=== PATIENT | female | born 1975 | race Caucasian/White ===

== ENCOUNTER 2018-01-03 23:08 | Emergency (ER) | payer OTHER | END 2018-01-04 01:42 | disposition home or self-care (01) | LOC: D.ER 23:08 | DX: R22.42 Localized swelling, mass and lump, left lower limb (principal); N13.30 Unspecified hydronephrosis; N13.4 Hydroureter; K59.00 Constipation, unspecified; F17.200 Nicotine dependence, unspecified, uncomplicated ==

== ENCOUNTER 2018-01-07 10:18 | Day surgery (SDC) | payer OTHER ==
[2018-01-07] VITALS (7 sets, daily range): BP systolic 108–182; BP diastolic 72–99; Ht 160 cm; Wt 50.0 kg
[~2018-01-07] VITALS: Ht 160 cm; Wt 50.0 kg
--- NOTE | ~2018-01-07 | OP ---
PATIENT NAME: JOSE VALADEZ MEDICAL RECORD: [id number] :77 LOCATION:[facility] .1214 ADMISSION DATE:01/07/18 SURGEON: JOSE GEORGE MD DATE OF OPERATION: 01/07/2018 PREOPERATIVE DIAGNOSES: 1. Left leg lower extremity edema. 2. Hydronephrosis. 3. Undiagnosed vaginal bleeding. POSTOPERATIVE DIAGNOSES: Advanced cervical cancer with extension to uterus and pelvic lymph nodes. PROCEDURES: 1. Exam under anesthesia. 2. Cystoscopy with biopsy (please see urology dictation). 3. Cervical biopsy. 4. Endocervical curetting. 5. Curettage of uterus. CO-SURGEONS: 1. Jose George MD 2. Ashvin Mejia. ANESTHESIOLOGIST: Palmer Tariq MD ANESTHESIA: General. FINDINGS: The cervix is obliterated and flushed with the apex of the vagina. A large defect at the apex of the vagina gives easy access to the lower uterine segment. Bimanual exam reveals a mass filling up the bowl of the pelvis. Inguinal lymph nodes are palpable, stool present in the vault. SPECIMEN REMOVED: 1. Cervical biopsy. 2. Endocervical curettings. 3. Endometrial curettings. ESTIMATED BLOOD LOSS: Less than or equal to 200 cc. FLUIDS: 1100 cc lactated Ringer's. URINE OUTPUT: 330 cc of urine. COMPLICATION: None. DRAINS: Pollock to gravity. INDICATIONS: The patient is a 42-year-old female with what is reported as 6 months of undiagnosed vaginal bleeding. The patient has been seen with CT showing hydronephrosis. The patient has also been experiencing lower leg edema over the last few weeks. The patient declines pelvic examination in the office, but allows external examination. The patient consented for cystoscopy exam under anesthesia and any indicated procedure. OPERATIVE REPORT [id number] JOSE VALADEZ DESCRIPTION OF PROCEDURE: After notified by the OR staff, I presented to the operating room where the patient has been prepped and draped. The patient has speculum introduced in the vagina after bimanual exam is performed. The above findings were encountered. The Kevorkian curette used to obtain endocervical curettings. Using a #1 curette, curettage was now performed of the uterus. All tissue passed off the field for pathology. Using a LEEP wire, several segments of the what remains of cervix is removed and sent to pathology. A 0 Vicryl stitches were placed at the 3 o'clock and 9 o'clock position and using Bovie cautery, remaining bleeding was cauterized. Some oozing still occurs and Kerlix with Monsel's was placed inside the vaginal vault. Pollock catheter has been started. Sponge, lap, and needle count was correct at the close of this procedure. The patient is awake, and will go to the floor for interventional radiology to place nephrostomy in the morning. TRANSINT:[id number] Voice Confirmation ID: [id number] DOCUMENT ID: [id number] JOSE GEORGE MD at 1315 CC: [id number] DICTATION DATE: 01/07/18 1616 OIL PIT ATTENDANT: 01/07/18 1733 DIS IN 01/09/18 [facility] [address] [place] [address]
--- NOTE | ~2018-01-07 | HEMODYNAMI ---
PATIENT:JOSE VALADEZ MEDICAL RECORD: [id number] : 77 LOCATION:[facility] D.1214 ADMISSION DATE: 01/07/18 Generatedon:01/08/201815:28 Patient name: JOSE VALADEZ Patient #: [id number] SSN: : 1975 Date of study: 01/08/2018 Page: Of Hemodynamic Procedure Report Patient Data Patient Demographics Procedure consent was obtained First Name: JOSE Gender: Female Last Name: ALLYSON : 1975 Middle Initial: D Age: 42 year(s) Patient #: [id number] Race: Unknown Additional ID: [id number] Contact details [address]: [address] [place] [address] [address] [facility] State: [place] City: [place] Zip code: [address] Admission Admission Data Admission Date: 01/07/2018 Admission Time: 10:18 Room #: D.1214 Procedure Procedure Types Cath Procedure Peripheral Cath Diagnostic Procedure Miscellaneous Procedure Description Procedure Date Procedure Date: 01/08/2018 Procedure Start Time: 14:10 Procedure Staff Name Function Dano Balderas MD Performing Physician Edgar Birmingham RT Monitor Ingris Romero RT Scrub Andrea Teran RN Nurse Camilo Bates Nurse Procedure Data Cath Procedure Fluoroscopy Diagnostic fluoroscopy Total fluoroscopy Time: time: 12.9 min 12.9 min Diagnostic fluoroscopy Total fluoroscopy dose: 175 dose: 175 mGy mGy Contrast Material Contrast Material Type Amount (ml) Isovue 300 40 Procedure Medications Medication Administration Route Dosage Fentanyl I.V. 50 mcg Versed I.V. 1 mg Benadryl I.V. 50 mg unlisted medication I.V. g Versed I.V. 1 mg Fentanyl I.V. 50 mcg Versed I.V. 1 mg Fentanyl I.V. 50 mcg Versed I.V. 1 mg Fentanyl I.V. 50 mcg Versed I.V. 1 mg Fentanyl I.V. 50 mcg Versed I.V. 1 mg Fentanyl I.V. 50 mcg Lidocaine 1% 20 Heparin Flush Bag added to field 1 bags (1000units/500ml NS) Hemodynamics Rest Pre Cath Intra NCS Post Cath Vital Signs Time Heart Resp SPO2 etCO2 NIBP (mmHg) Rhythm Pain Status Sedation Rate (ipm) (%) (mmHg) Level (bpm) 13:59:41 94 12 100 34.8 129/88(101) NSR 0 (11) , No 10(A) pain 14:04:03 94 10 100 25 Disturbed NSR 0 (11) , No 10(A) pain 14:08:17 94 10 100 33.3 123/83(109) NSR 0 (11) , No 10(A) pain 14:12:19 93 12 100 37.1 114/81(99) NSR 0 (11) , No 8(A) pain 14:16:19 93 12 100 31.8 113/75(101) NSR 2 (11) , 8(A) Uncomfortable 14:20:16 94 12 100 33.3 119/78(101) NSR 0 (11) , No 8(A) pain 14:24:18 97 10 98 38.6 116/79(101) NSR 0 (11) , No 8(A) pain 14:28:24 93 10 99 39.3 114/75(94) NSR 0 (11) , No 8(A) pain 14:32:23 94 10 99 38.6 113/82(105) NSR 2 (11) , 8(A) Uncomfortable 14:36:21 94 10 99 40.1 122/80(108) NSR 2 (11) , 8(A) Uncomfortable 14:40:25 93 10 99 41.6 130/71(105) NSR 0 (11) , No 8(A) pain 14:44:31 94 12 98 40.8 125/88(104) NSR 1 (11) , Very 8(A) mild 14:49:30 97 10 99 38.6 Measuring NSR 2 (11) , 8(A) Uncomfortable 14:49:44 97 10 99 39.3 139/86(116) NSR 0 (11) , No 8(A) pain 14:53:50 96 10 99 37.1 127/84(98) NSR 0 (11) , No 8(A) pain 14:57:53 93 12 99 41.6 112/77(95) NSR 0 (11) , No 8(A) pain 15:01:49 93 12 99 38.6 120/85(102) NSR 0 (11) , No 8(A) pain 15:05:34 94 10 99 38.6 126/95(112) NSR 0 (11) , No 8(A) pain 15:09:38 94 10 99 37.1 125/84(117) NSR 2 (11) , 8(A) Uncomfortable 15:13:40 93 12 99 40.1 124/81(104) NSR 0 (11) , No 8(A) pain 15:18:39 93 12 100 26.5 Measuring NSR 0 (11) , No 8(A) pain 15:18:57 93 12 100 43.1 116/82(102) NSR 0 (11) , No 9(A) pain 15:23:56 100 41.6 Measuring NSR 0 (11) , No 9(A) pain 15:24:00 100 38.6 115/86(105) NSR 0 (11) , No 9(A) pain 15:28:00 100 31 119/86(102) NSR 0 (11) , No 9(A) pain Medications Time Medication Route Dose Verified Delivered Reason Notes Eff ectiveness by by 14:10:04 Lidocaine 1% 20ml vial 14:10:13 Heparin Flush added 1 Bag to bags (1000units/500ml field NS) 14:11:35 Fentanyl I.V. 50 Dano Page for Mos tly Jana Peres sedation sleeping @ 14:36:19 14:11:50 Versed I.V. 1 mg Dano Page for Mos leonardoy Jana Balderas sedation sleeping @ 14:36:11 14:12:24 Benadryl I.V. 50 mg Jana Norwood physician 14:14:43 cefepime I.V. g Jana Norwood protocol 14:20:22 Versed I.V. 1 mg Dano Page for Mos Jana Christianson sedation sleeping @ 14:35:54 14:20:37 Fentanyl I.V. 50 Dano Page for Mos tly mcg Burda, ChristineRN sedation sleeping @ MD 14:33:50 14:33:23 Versed I.V. 1 mg Dano Page for Mos tly Burda, ChristineRN sedation sleeping @ MD 14:34:02 14:33:37 Fentanyl I.V. 50 Dano Page for Mos tly mcg Burda, ChristineRN sedation sleeping @ MD 14:33:56 14:43:31 Versed I.V. 1 mg Dano Page for Mos tly Burda, ChristineRN sedation sleeping @ MD 14:44:03 14:43:44 Fentanyl I.V. 50 Dano Page for Mos tly mcg Burda, ChristineRN sedation sleeping @ MD 14:43:58 14:49:17 Versed I.V. 1 mg Dano Page for Burda, ChristineRN sedation 14:49:27 Fentanyl I.V. 50 Dano Page for mcg Burda, ChristineRN sedation 15:11:20 Versed I.V. 1 mg Dano Page for Mos tly Burda, ChristineRN sedation sleeping @ MD 15:13:17 15:11:35 Fentanyl I.V. 50 Dano Page for Mos tly mcg Burda, ChristineRN sedation sleeping @ MD 15:13:13 Procedure Log Time Note 13:42:32 Edgar Birmingham RT (R) (CV) sent for patient. Start room use. 13:47:01 Time tracking: Regular hours 13:47:07 Plan of Care:Hemodynamics will remain stable., Cardiac rhythm will remain stable., Comfort level will be maintained., Respiratory function will remain adequate., Patient/ family verbilizes understanding of procedure., Procedure tolerated without complication., Recovers from procedure without complications.. 13:47:20 Patient received from Other to IR Alert and oriented. Tansferred to table in Prone position. 13:47:21 Correct patient and procedure confirmed by team. 13:47:23 Signed procedure consent form obtained from patient. 13:47:24 ECG and BP/O2 sat monitors applied to patient. 13:47:25 Full Disclosure recording started 13:47:27 - 13:47:30 H&P Date Dictated: 01/08/2018 Within 30 days and on chart.. 13:47:30 Pre-procedure instructions explained to patient. 13:47:32 Pre-op teaching completed and patient verbalized understanding. 13:47:34 Family in waiting room. 13:47:38 Patient NPO since Midnight. 13:48:10 Is the patient allergic to Iodine/contrast media? No. 13:48:21 Is patient on blood thinner?No 13:48:24 Patient diabetic? No. 13:48:25 - 13:48:25 ----Pre-sedation anethsthesia assessment.---- 13:48:29 Previous problem with sedation/anesthesia? No ? 13:48:32 Snore? Yes 13:48:35 Sleep apnea? No 13:48:36 Deviated septum? No 13:48:38 Sticks out tongue? No 13:48:43 Dentures? No ? 13:48:48 Use device set IR Diagnostic 13:48:50 Sterile Angiographic Pack opened to sterile field. 13:48:51 Bag Decanter (2002S) opened to sterile field. 13:57:58 Patient pain scale 0/10 NO PAIN. 13:58:05 IV patent on arrival in left forearm with 0.9% NaCl at [facility]. 13:58:06 Alarms reviewed by R. N. 13:58:07 Sharps counted by scrub and verified by R.N. 13:58:11 Lumbar area was prepped with chlora-prep and draped in sterile fashion 13:58:23 Vital chart was started 14:09:38 Physician arrived 14:09:39 --------ALL STOP TIME OUT------ 14:09:40 Final Timeout: patient, procedure, and site verified with staff and physician. All members of the team are in agreement. 14:09:44 Lumbar site verified by team. 14:09:49 Sedation plan: IV Moderate Sedation Medication:Versed, Fentanyl 14:10:03 Procedure started. 14:10:04 Lidocaine 1% 20ml vial was administered by ; ; 14:10:09 Local anesthetic to Lumbar area with Lidocaine 1% by Dano Balderas MD.INITIAL ACCESS ONLY 14:10:13 Heparin Flush Bag (1000units/500ml NS) 1 bags added to field was administered by ; ; 14:10:37 STOPCOCK 3-Way Large Bore ([id number]) opened to sterile field. 14:10:38 KIT, INTRODUCER ACCUSTICK II W/C ([id number]) opened to sterile field. 14:10:38 BAG, DRAINAGE EMPTY 600ML W/ADDI (XMN470) opened to sterile field. 14:10:39 CHIBA 22 X 15 needle opened to sterile field. 14:11:35 Fentanyl 50 mcg I.V. was administered by Camilo Bates; for sedation; 14:11:50 Versed 1 mg I.V. was administered by Camilo Bates; for sedation; 14:12:24 Benadryl 50 mg I.V. was administered by Camilo Bates; Per physician; 14:12:59 patient c/o itching prior to any meds given dr. balderas updated will give benadryl 14:14:43 cefepime g I.V. was administered by Camilo Bates; Per protocol; 14:20:22 Versed 1 mg I.V. was administered by Camilo Bates; for sedation; 14:20:37 Fentanyl 50 mcg I.V. was administered by Camilo Bates; for sedation; 14:26:31 NITINOL .018 80cm wire ([id number]) opened to sterile field. 14:30:18 GLIDE CATHETER 5FR ANGLED 65cm (CG507) opened to sterile field. 14:30:24 NITINOL .018 80cm wire ([id number]) opened to sterile field. 14:33:23 Versed 1 mg I.V. was administered by Camilo Bates; for sedation; 14:33:37 Fentanyl 50 mcg I.V. was administered by Camilo Bates; for sedation; 14:33:50 Effectiveness of Fentanyl delivered @ 14:20:37 is: Mostly sleeping 14:33:56 Effectiveness of Fentanyl delivered @ 14:33:37 is: Mostly sleeping 14:34:02 Effectiveness of Versed delivered @ 14:33:23 is: Mostly sleeping 14:35:54 Effectiveness of Versed delivered @ 14:20:22 is: Mostly sleeping 14:36:11 Effectiveness of Versed delivered @ 14:11:50 is: Mostly sleeping 14:36:19 Effectiveness of Fentanyl delivered @ 14:11:35 is: Mostly sleeping 14:43:31 Versed 1 mg I.V. was administered by Camilo Bates; for sedation; 14:43:44 Fentanyl 50 mcg I.V. was administered by Camilo Bates; for sedation; 14:43:58 Effectiveness of Fentanyl delivered @ 14:43:44 is: Mostly sleeping 14:44:03 Effectiveness of Versed delivered @ 14:43:31 is: Mostly sleeping 14:46:09 GLIDE WIRE ANGLE 180cm (JZ9393) opened to sterile field. 14:49:17 Versed 1 mg I.V. was administered by Camilo Bates; for sedation; 14:49:27 Fentanyl 50 mcg I.V. was administered by Camilo Bates; for sedation; 14:50:04 GLIDE WIRE Angled Super Stiff 180cm (KB4992) opened to sterile field. 14:50:22 TORQUE DEVICE PLASTIC .038 ( TD01) opened to sterile field. 14:51:01 Abscession 8Fr drainage catheter ([id number]) opened to sterile field. 14:56:23 Trailblazer 0.035 90cm catheter (ASC-035-090) opened to sterile field. 14:56:23 GLIDE WIRE Super Stiff Angled 260cm (GE4180) opened to sterile field. 15:03:33 [place] Sci 8FR X 26 CM Ureteral Stent ([id number]) opened to sterile field. 15:07:05 AMPLATZ Super stiff 180cm wire ([id number]) opened to sterile field. 15:07:21 SUTURE ETHILON 2-0 BLK MONO FS opened to sterile field. 15:11:20 Versed 1 mg I.V. was administered by Camilo Bates; for sedation; 15:11:35 Fentanyl 50 mcg I.V. was administered by Camilo Bates; for sedation; 15:13:13 Effectiveness of Fentanyl delivered @ 15:11:35 is: Mostly sleeping 15:13:17 Effectiveness of Versed delivered @ 15:11:20 is: Mostly sleeping 15:16:24 Procedure ended.(Physican Out) 15:19:46 Fluoroscopy time 12.90 minutes. 15:19:50 Fluoroscopy dose: 175 mGy 15:19:50 Flurop Dose total: 175 15:19:56 Insertion/operative site no bleeding no hematoma. 15:20:04 Post-op/insertion site Right Lumbar area dressed using a 4 x 4 and Tegaderm. 15:20:12 Post Lumbar area:stable 15:26:40 Post procedure instruction explained to patient.Patient verbalizes understanding. 15:26:41 Procedure and supply charges have been captured, reviewed, submitted an d are correct. 15:26:47 Contrast amount:Isovue 300 40ml. 15:27:55 Report given to Other. 15:27:58 Patient transfered to Other with Bed. 15:28:22 Vital chart was stopped Device Usage Item Name Manufacture Quantity Catalog Hospital Part Current Min imal Lot# / Number Charge Number Stock Stock Serial# Code Sterile Cardinal [address] [id number] 5 Angiographic Health Pack Bag Decanter Microtek 1 [id number] 42819 399059 5 () Medical Inc. STOPCOCK [facility] 1 [id number] 675066 7599 895306 5 [id number] 3-Way Large Bore (P99102) KIT, [place] 1 [id number] 648205 453745 899245 5 [id number] INTRODUCER Scientific ACCUSTICK II W/C ([id number]) BAG, DRAINAGE [facility] 1 [id number] 171504 749772 742969 5 EMPTY 600ML W/ADDI (LXJ778) CHIBA 22 X 15 [employer] [employer] 1 I47514 277416 555495 5 [id number] needle NITINOL .018 Medtronic 2 [id number] 080375 550219 5 [id number] 80cm wire [id number] ([id number]) GLIDE Terumo 1 CG507 079018 525732 5 CATHETER 5FR ANGLED 65cm (CG507) GLIDE WIRE Terumo 1 BA0466 985287 742219 454065 5 ANGLE 180cm (RI3266) GLIDE WIRE Terumo 1 FN5583 334519 699784 5 Angled Super Stiff 180cm (PX9708) TORQUE DEVICE [place] 1 TD01 624112 387656 169458 5 PLASTIC .038 Scientific ( TD01) Abscession Angiodynamics 1 [id number] 950602 774956 760947 5 8Fr drainage catheter ([id number]) Trailblazer Medtronic 1 ASC-035-090 068357 3517437 896887 5 0.035 90cm catheter (ASC-035-090) GLIDE WIRE Terumo 1 TO7151 273486 156252 608535 5 Super Stiff Angled 260cm (TR0855) [place] Sci [place] 1 [id number] 324204 040801 812084 5 8FR X 26 CM Scientific Ureteral Stent ([id number]) AMPLATZ Super [place] 1 [id number] 154485 224942 5 [id number] stiff 180cm Scientific wire ([id number]) SUTURE Ethicon 1 664H 354802 825010 5 ETHILON 2-0 BLK MONO FS Signature Audit [place] Stage Time Signature Unsigned Intra-Procedure 01/08/2018 Edgar 3:28:19 PM Valencia RT (R) (CV) Signatures Monitor : Edgar Signature : Valencia RT Date : Time : [facility] [address] [place] [address]
--- NOTE | ~2018-01-07 | OP ---
PATIENT NAME: JOSE VALADEZ MEDICAL RECORD: [id number] :77 LOCATION:[facility] ADMISSION DATE: SURGEON: JONATHAN SEALS MD DATE OF OPERATION: 01/07/2018 SURGEON: Jonathan Seals MD ANESTHESIA: General anesthesia by Alvarez Baldwin CRNA PREOPERATIVE DIAGNOSES: Right hydronephrosis, vaginal bleeding, pelvic and aortocaval lymphadenopathy with left lymphedema of the leg. POSTOPERATIVE DIAGNOSES: Right hydronephrosis due to infiltrating cervical cancer, vaginal bleeding, pelvic and aortocaval lymphadenopathy with left lymphedema of the leg. PROCEDURES: Cystoscopy, attempted right retrograde pyelogram, bladder biopsy. FINDINGS: Large mass from cervix and uterus distorting the posterior bladder wall. Tumor infiltrating the posterior bladder wall and trigone of the bladder. 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 I cannot identify the location of left ureteral orifice. SPECIMENS: Bladder biopsy times 2. BLOOD LOSS: None. CLINICAL HISTORY: This is a 42-year-old female who is referred by the Emergency Room. She has been complaining of vaginal bleeding for over 6 months. She also developed left leg swelling in the past 7 days. She has gone to the Emergency Room previously regarding the vaginal bleeding and she was told that she had a urinary tract infection and she was given Cipro. She claims that her last Pap test was 2 years ago and it was normal. The Emergency Room did perform Doppler ultrasound of her leg and no DVT was seen. The patient would not allow me to perform a pelvic examination. I was quite suspicious that she may have cervical cancer and I called Dr. Alva to see her. He did see her yesterday and she also did not allow him to examine her. The differential diagnosis was lymphoma and we had Dr. Varela on-call in case she had a palpable inguinal lymph node which we could biopsy for the diagnosis of lymphoma. She did consent to allow Dr. Alva to examine the inguinal area as I had conveyed to him my concerns and he did note lymphadenopathy in the right groin. So, the plan was for me to perform cystoscopy, retrograde pyelogram, and right ureteral stent insertion and then Dr. Alva would come in to do a cervical biopsy and finally Dr. Varela would perform a right inguinal lymph node biopsy. This is all because we did not have any source of the primary cause of the right hydronephrosis. She is not allergic to any medications. She was given Ancef on-call to the OR. PROCEDURE: The patient was given induction of general anesthesia. She was placed in the dorsal lithotomy position and prepped and draped. A 21-Palauan cystoscope with 30-degree lens was used for visualization. On entering into the bladder, I immediately noted tumor infiltration into the trigone of the bladder. The ureteral orifices were severely distorted and the posterior bladder wall was extremely distorted as if something from below the bladder, i.e., cervix and uterus was pushing up on the bladder. I identified what I OPERATIVE REPORT [id number] JOSE VALADEZ thought was the right ureteral orifice. We placed an open-ended ureteral catheter, but injecting contrast showed that there was no progression of contrast in an antegrade manner. I did have Dr. Alva come into the operating room so I could show him on the monitor screen the tumor infiltration of the bladder wall. I then obtained cold cup biopsies of two of these tumor sites. We then proceeded to perform his examination under anesthesia. We immediately noted that she had very distorted cervix which has eaten away into the anterior vaginal wall and bladder area. The working diagnosis now being cervical cancer, Dr. Alva will proceed with his surgery. Dr. Varela was informed that there was no need to do an inguinal lymph node biopsy as we are not concerned about lymphoma at this point. In order to relieve the occlusion of the right kidney, I will have her admitted overnight. I have already discussed her situation with interventional radiology. They will place a right nephrostomy tube tomorrow. TRANSINT:[id number] Voice Confirmation ID: [id number] DOCUMENT ID: [id number] JONATHAN SEALS MD at 1808 CC: [id number] DICTATION DATE: 01/07/18 1603 DEALERSHIP GENERAL MANAGER: 01/07/18 1723 [facility] [address] [place] [address]
[2018-01-07 11:10] LABS: BASOPHILS 0.1 % (0-2); EOSINOPHILS 5.3 % (0-7); HEMATOCRIT 33.9 % (36.0-48.0); HEMOGLOBIN 10.5 g/dL (12-16); IMMATURE GRANULOCYTES 0.4 % (0-5); LYMPHOCYTES 8.7 % (15-50); MCH 25.2 pg (26.0-34.0); MCV 81.5 fL (80.0-100.0); MEAN PLATELET VOLUME 9.1 fL (7.4-10.4); MONOCYTES 9.4 % (2-11); NEUTROPHILS 76.1 % (40-80); PLATELET COUNT 410 10x3/uL (130-400); RBC 4.16 10x6/uL (4.00-5.40); RDW 15.8 % (11.5-14.5); WBC 14.1 10x3/uL (4.8-10.8)
[2018-01-07 11:21] LABS: ANION GAP 14.7 mmol/L (8-16); CALCIUM 8.7 mg/dL (8.5-10.1); CARBON DIOXIDE 24.8 mmol/L (21.0-32.0); CREATININE - SERUM 0.9 mg/dL (0.6-1.3); POTASSIUM - SERUM 3.5 mmol/L (3.5-5.1)
[2018-01-07 12:47] LABS: HCG URINE NEGATIVE (NEGATIVE)
[2018-01-07 20:43] LABS: INR 0.94 (0.85-1.17); PROTIME 12.2 SECONDS (11.6-15.0)
[2018-01-08] VITALS (8 sets, daily range): BP systolic 104–139; BP diastolic 58–80
[2018-01-09 00:05] VITALS: BP 102/58
[2018-01-09 04:19] VITALS: BP 98/62
[2018-01-09 04:22] VITALS: BP 106/62
[2018-01-09 06:49] VITALS: BP 121/53
[2018-01-09 07:30] VITALS: BP 109/67
[2018-01-09] MEDS ORDERED: NORCO 7.5/325 T1 TA1 PO (07:49)
== END 2018-01-09 08:40 | disposition home or self-care (01) ==
LOC: D.OPS 10:18 → D.WS 16:39 → D.OPS 18:32 → D.WS 18:32 → D.OPS 18:32 → D.WS 01-09 08:40 → D.OPS 01-09 08:40
PROVIDERS: Anesthesiology; Radiology Diagnostic Radiology; Urology
DX: C53.0 Malignant neoplasm of endocervix (principal); C79.82 Secondary malignant neoplasm of genital organs; C79.11 Secondary malignant neoplasm of bladder; N13.1 Hydronephrosis with ureteral stricture, not elsewhere classified; R59.0 Localized enlarged lymph nodes; Z01.812 Encounter for preprocedural laboratory examination

== ENCOUNTER 2018-01-19 08:06 | Outpatient (CLI) | payer OTHER ==
--- NOTE | ~2018-01-19 | HEMODYNAMI ---
PATIENT:JOSE VALADEZ MEDICAL RECORD: [id number] : 77 LOCATION:D.OPS ADMISSION DATE: 01/19/18 Generatedon:01/19/201811:40 Patient name: JOSE VALADEZ Patient #: [id number] SSN: : 1975 Date of study: 01/19/2018 Page: Of Hemodynamic Procedure Report Patient Data Patient Demographics Procedure consent was obtained First Name: JOSE Gender: Female Last Name: ALLYSON : 1975 Middle Initial: D Age: 43 year(s) Patient #: [id number] Race: Unknown Additional ID: [id number] Contact details Address: [address] [place] [address] [place] State: [place] City: [place] Zip code: [address] Admission Admission Data Admission Date: 01/19/2018 Admission Time: 8:06 Procedure Procedure Types Cath Procedure Peripheral Cath Diagnostic Procedure Nephro Nephrostogram Thru Existing Procedure Description Procedure Date Procedure Date: 01/19/2018 Procedure Start Time: 11:19 Procedure End Time: 11:35 Procedure Staff Name Function Edgar Birmingham RT Scrub Kavon Rios MD Performing Physician Ingris Romero RT Monitor Andrea Teran RN Nurse Camilo Bates Nurse Procedure Data Cath Procedure Fluoroscopy Diagnostic fluoroscopy Total fluoroscopy Time: 0.5 time: 0.5 min min Diagnostic fluoroscopy Total fluoroscopy dose: 4 dose: 4 mGy mGy Procedure Medications Medication Administration Route Dosage Versed I.V. 2 mg Fentanyl I.V. 50 mcg Fentanyl I.V. 50 mcg Hemodynamics Rest Heart Rate: 104 (bpm) Snapshots Pre Cath Intra NCS Post Cath Vital Signs Time Heart Resp SPO2 etCO2 NIBP (mmHg) Rhythm Pain Sedation Rate (ipm) (%) (mmHg) Status Level (bpm) 11:05:44 105 19 100 0 119/67(85) NSR 7 (11) 10(A) , Very intense 11:09:44 139 20 100 32.1 125/91(102) NSR 7 (11) 10(A) , Very intense 11:13:46 99 15 100 35.1 121/82(96) NSR 7 (11) 10(A) , Very intense 11:17:47 104 18 100 35.1 125/82(104) NSR 7 (11) 10(A) , Very intense 11:21:51 105 15 100 31.3 126/81(100) NSR 7 (11) 10(A) , Very intense 11:26:01 23 100 23.1 113/60(103) NSR 7 (11) 8(A) , Very intense 11:30:01 102 13 100 0 111/84(95) NSR 7 (11) 9(A) , Very intense 11:34:00 101 16 97 0 110/78(96) NSR 7 (11) 9(A) , Very intense Medications Time Medication Route Dose Verified Delivered Reason Notes Effective ness by by 11:19:16 Versed I.V. 2 mg Kavon Page for Fully jigar dirk @ Blanca Bates sedation 11:30:37 11:19:31 Fentanyl I.V. 50 Kavon Page for Fully jigar dirk @ [facility] Blanca CortezineRN sedation 11:30:34 11:25:44 Fentanyl I.V. 50 Kavon Page for Dozing [facility] Blanca DiegoineRN sedation intermittently MD @ 11:30:41 Procedure Log Time Note 10:48:31 Parul Mendez RN sent for patient. Start room use. 10:48:50 Patient received from Outpatients to IR Alert and oriented. Tansferred to table in Prone position. 10:49:22 Correct patient and procedure confirmed by team. 10:49:26 Signed procedure consent form obtained from patient. 10:49:28 ECG and BP/O2 sat monitors applied to patient. 10:49:32 Full Disclosure recording started 10:49:34 - 10:49:44 H&P Date Dictated: 01/19/2018 H&P Addendum completed by physician on day of procedure. (MUST COMPLETE FOR ALL OUTPATIENTS). 10:49:46 Pre-procedure instructions explained to patient. 10:49:48 Pre-op teaching completed and patient verbalized understanding. 10:49:55 Family in waiting room. 10:50:00 Patient NPO since Midnight. 10:50:18 ----Pre-sedation anethsthesia assessment.---- 10:50:34 Previous problem with sedation/anesthesia? No ? 10:50:39 Snore? Yes 10:50:43 Sleep apnea? No 10:50:46 Deviated septum? No 10:50:49 Opens mouth fully? Yes 10:50:52 Sticks out tongue? Yes 10:51:02 Dentures? No ? 10:51:11 Is the patient allergic to Iodine/contrast media? No. 10:51:18 Is patient on blood thinner?No 10:51:23 Patient diabetic? No. 10:52:02 Patient pain scale 7/10 ?. 10:52:19 IV patent on arrival in right forearm with 0.9% NaCl at KVO. 10:52:43 Lumbar area was prepped with chlora-prep and draped in sterile fashion 10:52:46 Alarms reviewed by RTorie N. 10:52:48 Sharps counted by scrub and verified by R.N. 10:52:51 - 10:53:05 Use device set IR Diagnostic 10:53:16 Bag Decanter (2002S) opened to sterile field. 10:53:17 Sterile Angiographic Pack opened to sterile field. 11:04:34 Vital chart was started 11:05:00 Baseline sample Acquired. 11:18:52 Physician arrived 11:18:55 --------ALL STOP TIME OUT------ 11:18:58 Final Timeout: patient, procedure, and site verified with staff and physician. All members of the team are in agreement. 11:19:07 Lumbar site verified by team. 11:19:16 Versed 2 mg I.V. was administered by Camilo Bates; for sedation; 11:19:16 Sedation plan: IV Moderate Sedation Medication:Versed, Fentanyl 11:19:31 Fentanyl 50 mcg I.V. was administered by Camilo Bates; for sedation; 11:19:49 Procedure started. 11:24:29 LYNNETTE .035 15cm wire ([id number]) opened to sterile field. 11:25:25 lynnette wire wire advanced . Rt nephrostomy tube removed 11:25:44 Fentanyl 50 mcg I.V. was administered by Camilo Bates; for sedation; 11::53 Contrast amount:Isovue 300 0.8ml. 11:29:42 Procedure ended.(Physican Out) 11:29:53 Sharps counted by scrub and verified by R.N. 11:30:00 Insertion/operative site no bleeding no hematoma. 11:30:19 Post-op/insertion site Right Lumbar area dressed using a 4 x 4 and Tegaderm. 11:30:33 Post Lumbar area:stable 11:30:34 Effectiveness of Fentanyl delivered @ 11:19:31 is: Fully awake 11:30:37 Effectiveness of Versed delivered @ 11:19:16 is: Fully awake 11:30:41 Effectiveness of Fentanyl delivered @ 11::44 is: Dozing intermittentl y 11:30:53 Post procedure instruction explained to patient.Patient verbalizes understanding. 11:31:09 Procedure and supply charges have been captured, reviewed, submitted an d are correct. 11:34:18 Fluoroscopy time 00.50 minutes. 11:34:25 Flurop Dose total: 4 11:34:45 Report given to Outpatients. 11:34:53 Patient transfered to Outpatients with Stretcher. 11:35:11 Full Disclosure recording stopped 11:35:11 Procedure ended. 11:36:06 Vital chart was stopped 11:38:25 Fluoroscopy dose: 4 mGy Device Usage Item Name Manufacture Quantity Catalog Hospital Part Current Minimal Lot# / Number Charge Number Stock Stock Serial# Code Bag Decanter Microtek 1 [id number] 5 () [employer] Inc[employer] Sterile Cardinal 1 [id number] 5 Angiographic Health Pack LYNNETTE .035 Cook [employer] 1 [id number] 15cm wire ([id number]) Signature Audit [place] Stage Time Signature Unsigned Intra-Procedure 01/19/2018 Ingris Birmingham RT 11:36:03 AM Heather RT (R) (CV) 01/19/2018 (R) (CV) 11:38:10 AM Intra-Procedure 01/19/2018 Ingris 11:40:48 AM Heather RT (R) (CV) Signatures Monitor : Ingris Signature : Heather RT Date : Time : [facility] [address] [place] [address]
[~2018-01-19 08:06] MED LIST: NORCO 7.5/325 T1 TA1 PO
[2018-01-19] MEDS ORDERED: OXYCONTIN10 MG PO (09:46)
[2018-01-19 10:02] VITALS: BP 119/68; BMI 19.1
[2018-01-19 10:32] LABS: BASOPHILS 0.1 % (0-2); EOSINOPHILS 3.1 % (0-7); HEMATOCRIT 34.6 % (36.0-48.0); IMMATURE GRANULOCYTES 0.6 % (0-5); LYMPHOCYTES 9.7 % (15-50); MCH 25.1 pg (26.0-34.0); MCHC 31.8 g/dL (31.0-37.0); MCV 78.8 fL (80.0-100.0); MEAN PLATELET VOLUME 8.8 fL (7.4-10.4); MONOCYTES 6.6 % (2-11); NEUTROPHILS 79.9 % (40-80); RBC 4.39 10x6/uL (4.00-5.40); RDW 15.8 % (11.5-14.5); WBC 17.4 10x3/uL (4.8-10.8)
[2018-01-19 10:40] LABS: PLATELET COUNT 593 10x3/uL (130-400)
[2018-01-19 10:48] LABS: CALC OSMOLALITY 272 mosm/kg (275-300); CALCIUM 8.9 mg/dL (8.5-10.1); CARBON DIOXIDE 25.4 mmol/L (21.0-32.0); CHLORIDE - SERUM 101 mmol/L (98-107); CREATININE - SERUM 0.8 mg/dL (0.6-1.3); GLUCOSE 85 mg/dL (74-106); INR 1.02 (0.85-1.17); POTASSIUM - SERUM 4.4 mmol/L (3.5-5.1); SODIUM 137 mmol/L (136-145); UREA NITROGEN 12 mg/dL (7-18); eGFR NON AFRICAN AMERICAN 83 mL/min (90-120)
== END 2018-01-19 12:40 | disposition home or self-care (01) ==
LOC: D.OPS 08:06
PROVIDERS: Radiology Diagnostic Radiology
DX: N13.30 Unspecified hydronephrosis (principal); I89.0 Lymphedema, not elsewhere classified; N93.9 Abnormal uterine and vaginal bleeding, unspecified; Z01.812 Encounter for preprocedural laboratory examination; C53.9 Malignant neoplasm of cervix uteri, unspecified

== ENCOUNTER 2018-03-09 06:52 | Day surgery (SDC) | payer OTHER ==
[~2018-03-09] VITALS: Ht 160 cm; Wt 45.5 kg
--- NOTE | ~2018-03-09 | OP ---
PATIENT NAME: JOSE VALADEZ MEDICAL RECORD: [id number] :[birth year] LOCATION:D.FORMERLY [facility] ADMISSION DATE: SURGEON: STEVE ROSENBERG DO DATE OF OPERATION: 03/09/2018 PROCEDURE: Colonoscopy. INDICATIONS FOR PROCEDURE: Screening colonoscopy and a personal history of malignant neoplasm of the cervix. SCOPE: [employer] video pediatric colonoscope. MEDICATIONS: Propofol 230 mg IV per anesthesia. WITHDRAWAL TIME: 10 minutes. ESTIMATED BLOOD LOSS: None. COMPLICATIONS: None. FINDINGS: Informed consent was given. The patient was made comfortable with the above medication. After reaching an adequate level of sedation by slow IV push, the patient was placed on her left side. A digital rectal examination was performed and was normal. The endoscope was then advanced under direct visualization through the rectum to the cecum with visualization of the appendiceal orifice and ileocecal valve. The endoscope was slowly withdrawn and mucosa was carefully examined. The prep quality was good. There was evidence of mild diverticulosis involving the entire colon without evidence of diverticulitis. There were no polyps seen on today's examination. Retroflexion was performed in the rectum with a normal appearing rectal wall. The endoscope was withdrawn from the patient. The patient tolerated the procedure well and there were no complications. IMPRESSION: Mild pandiverticulosis without diverticulitis. PLAN AND RECOMMENDATIONS: 1. Discharge home when recovery parameters are met. 2. High fiber diet. 3. Continue current medications. 4. Recall colonoscopy in 5 years. TRANSINT:[id number] Voice Confirmation ID: [id number] DOCUMENT ID: [id number] STEVE ROSENBERG DO at 1524 CC: [id number] DICTATION DATE: 03/09/18 1036 AGILE DEVELOPER: 03/09/18 1338 [facility] 03/09/18 [place] [address]
[~2018-03-09 06:52] MED LIST changes: +OXYCONTIN10 MG PO
[2018-03-09 07:41] VITALS: BP 97/68; Ht 160 cm; Wt 45.5 kg
[2018-03-09 07:55] LABS: HCG URINE NEGATIVE (NEGATIVE)
[2018-03-09 08:17] LABS: BASOPHILS 0.2 % (0-2); EOSINOPHILS 8.9 % (0-7); HEMATOCRIT 36.2 % (36.0-48.0); HEMOGLOBIN 11.5 g/dL (12-16); IMMATURE GRANULOCYTES 0.2 % (0-5); LYMPHOCYTES 18.2 % (15-50); MCH 25.8 pg (26.0-34.0); MCHC 31.8 g/dL (31.0-37.0); MCV 81.3 fL (80.0-100.0); MEAN PLATELET VOLUME 9.5 fL (7.4-10.4); MONOCYTES 6.9 % (2-11); NEUTROPHILS 65.6 % (40-80); RBC 4.45 10x6/uL (4.00-5.40); RDW 23.8 % (11.5-14.5); WBC 6.4 10x3/uL (4.8-10.8)
[2018-03-09 08:26] LABS: HCG SERUM NEGATIVE (NEGATIVE)
[2018-03-09 08:30] LABS: CALC OSMOLALITY 277 mosm/kg (275-300); CALCIUM 9.1 mg/dL (8.5-10.1); CARBON DIOXIDE 26.6 mmol/L (21.0-32.0); CHLORIDE - SERUM 105 mmol/L (98-107); CREATININE - SERUM 0.6 mg/dL (0.6-1.3); GLUCOSE 77 mg/dL (74-106); POTASSIUM - SERUM 4.8 mmol/L (3.5-5.1); SODIUM 140 mmol/L (136-145); UREA NITROGEN 13 mg/dL (7-18); eGFR NON AFRICAN AMERICAN > 90 mL/min (90-120)
[2018-03-09 08:53] LABS: PLATELET COUNT 343 10x3/uL (130-400)
== END 2018-03-09 11:31 | disposition home or self-care (01) ==
LOC: D.OPS 06:52
PROVIDERS: Anesthesiology; Internal Medicine Gastroenterology
DX: Z12.11 Encounter for screening for malignant neoplasm of colon (principal); Z85.41 Personal history of malignant neoplasm of cervix uteri; F17.200 Nicotine dependence, unspecified, uncomplicated; Z01.812 Encounter for preprocedural laboratory examination

== ENCOUNTER 2018-04-20 09:24 | Emergency (ER) | payer OTHER ==
[~2018-04-20] VITALS: Ht 160 cm; Wt 41.8 kg
[2018-04-20 09:27] VITALS: Ht 160 cm; Wt 41.8 kg
[2018-04-20] MEDS ORDERED: HYDROCODONE-APA1 TAB PO (09:32)
[2018-04-20] MEDS ORDERED: ATIVAN0.5 MG PO (09:32)
[2018-04-20] MEDS ORDERED: PHENERGAN25 M1 (09:33)
[2018-04-20 10:16] LABS: BASOPHILS 0 % (0-2); EOSINOPHILS 3.4 % (0-7); HEMATOCRIT 31.7 % (36.0-48.0); HEMOGLOBIN 10.2 g/dL (12-16); IMMATURE GRANULOCYTES 0.5 % (0-5); LYMPHOCYTES 11.9 % (15-50); MCH 28.6 pg (26.0-34.0); MCHC 32.2 g/dL (31.0-37.0); MCV 88.8 fL (80.0-100.0); MEAN PLATELET VOLUME 8.8 fL (7.4-10.4); MONOCYTES 11.9 % (2-11); NEUTROPHILS 72.3 % (40-80); PLATELET COUNT 158 10x3/uL (130-400); RBC 3.57 10x6/uL (4.00-5.40); RDW 20.6 % (11.5-14.5); WBC 3.8 10x3/uL (4.8-10.8)
[2018-04-20 10:29] LABS: APTT 27.8 SECONDS (22.8-39.4)
[2018-04-20 10:30] LABS: D-DIMER-QUANTITATIVE 0.95 ug/mLFEU (0.20-0.54); INR 0.9 (0.85-1.17); PROTIME 11.8 SECONDS (11.6-15.0)
[2018-04-20 10:31] LABS: ALBUMIN 3.4 g/dL (3.4-5.0); ALKALINE PHOSPHATASE 88 U/L (46-116); ALT (SGPT) 23 U/L (10-68); BILIRUBIN - TOTAL 0.19 mg/dL (0.2-1.3); CALC OSMOLALITY 276 mosm/kg (275-300); CALCIUM 9.6 mg/dL (8.5-10.1); CARBON DIOXIDE 30.6 mmol/L (21.0-32.0); CHLORIDE - SERUM 104 mmol/L (98-107); CREATININE - SERUM 0.6 mg/dL (0.6-1.3); GLUCOSE 97 mg/dL (74-106); POTASSIUM - SERUM 3.8 mmol/L (3.5-5.1); PROTEIN - SERUM 7.7 g/dL (6.4-8.2); SODIUM 140 mmol/L (136-145); UREA NITROGEN 8 mg/dL (7-18); eGFR NON AFRICAN AMERICAN > 90 mL/min (90-120)
[2018-04-20 10:43] LABS: CREATINE KINASE 34 UL (21-215); MAGNESIUM - SERUM 1.9 mg/dL (1.8-2.4); PRO BNP 45 pg/mL (0-125); TROPONIN-I < 0.017 ng/mL (0.000-0.060)
[2018-04-20 12:47] LABS: CREATINE KINASE 20 UL (21-215); PRO BNP 48 pg/mL (0-125)
[2018-04-20 12:51] LABS: TROPONIN-I < 0.017 ng/mL (0.000-0.060)
[2018-04-20 15:38] VITALS: BP 97/70
== END 2018-04-20 15:38 | disposition home or self-care (01) ==
LOC: D.ER 09:24
PROVIDERS: Family Medicine
DX: R07.9 Chest pain, unspecified (principal); Z85.41 Personal history of malignant neoplasm of cervix uteri; F17.200 Nicotine dependence, unspecified, uncomplicated

== ENCOUNTER 2018-07-16 06:18 | Observation (INO) | payer OTHER ==
[~2018-07-16] VITALS: Ht 160 cm; Wt 45.5 kg
--- NOTE | ~2018-07-16 | OP ---
PATIENT NAME: JOSE VALADEZ MEDICAL RECORD: [id number] :77 LOCATION:D.OPS ADMISSION DATE: SURGEON: SAJAN SEALS MD DATE OF OPERATION: 07/16/2018 SURGEON: Sajan Seals MD COMPREHENSIVE OPHTHALMOLOGIST: Dr. Jose Alva ANESTHESIA: General anesthesia by Agustin Giron CRNA. 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 PROCEDURES: Cystoscopy, left retrograde pyelogram, contrast injection into the vesicovaginal fistula, right ureteral stent exchange to a 22-cm metal Cook Resonance stent. FINDINGS ON CYSTOSCOPY: Vesicovaginal fistula about 2 mm in diameter in the high posterior wall of the bladder, seen to exit near the cervix vaginally. No intravesical tumors seen. Left retrograde pyelogram. No filling defects or hydronephrosis. Right ureteral stent heavily encrusted. SPECIMENS: Right ureteral stent. BLOOD LOSS: None. CLINICAL HISTORY: This is a 43-year-old female, who was initially seen with vaginal bleeding and CT scans showed right-sided hydroureteronephrosis. She had massively enlarged pelvic lymph nodes as well as inguinal lymph node. Dr. Alva examined her and diagnosed cervical cancer on EUA and biopsy. To treat her right hydronephrosis, she had to have a nephrostomy tube and this was later switched to a right ureteral stent insertion by interventional radiology. This is the right ureteral stent that she still has. In the interim, she has had chemotherapy and radiation therapy. She has just finished a course of radiation. Dr. Su called me and asked to have her ureteral catheter changed. This is due for a change. I will be putting a metal stent in which can last up to 1 year. The patient is also complaining of urinary incontinence now. Finally, Dr. Alva will be examining the patient under anesthesia to check the condition of the cervix. She was given Ancef retail loss prevention officer to the OR. DESCRIPTION OF PROCEDURE: The patient was given induction of general anesthesia. We then placed her in the dorsal lithotomy position and prepped and draped. A 21-Kenyan cystoscope with 30-degree lens was used for visualization. The patient previously had tumors infiltrating into the bladder. These were gone. I did not see any further tumors in the bladder. Instead, I saw a hole in the bladder about 2 mm in diameter. We inserted an open-ended ureteral catheter down this tract and injected contrast. The other end of the contrast leaks out into the vagina confirming the presence of a vesicovaginal fistula. The left ureteral orifice was then identified and contrast was injected into the left side for a retrograde pyelogram. No hydronephrosis or filling defects were seen on the left side. We then switched to grasping forceps and the distal end of the right ureteral stent was pulled out of the urethral meatus. The proximal end was still left in the ureter. We cut off the coiled portion of the ureteral stent and I inserted a Sensor wire up the lumen of the stent into the right OPERATIVE REPORT [id number] ALLYSON,JOSE D renal pelvis. Once the wire was in position, the stent was completely removed and sent to pathology for identification. We then backloaded the wire onto the cystoscope. The ureteral catheter and ureteral sheath were inserted up to the renal pelvis level over the wire. Once the sheath was in correct position as identified by the radiopaque marker, then we removed the ureteral catheter and the guidewire, leaving the sheath in place. Through the lumen of the sheath, we inserted the metal stent. Once the stent was in correct position, the sheath was completely withdrawn, leaving the stent in place. The distal end of the stent is seen to coil in the bladder and fluoroscopy confirms that the proximal end of the stent is coiled in the right renal pelvis. At this point, I removed the cystoscope and placed it into the vagina for vaginoscopy. We can still see lesions on her cervix. Dr. Alva will be obtaining further biopsies of these lesions and he will dictate his portion separately. TRANSINT:[id number] Voice Confirmation ID: [id number] DOCUMENT ID: [id number] SAJAN SEALS MD at 1128 CC: [id number] DICTATION DATE: 07/16/18 0938 WRAPPER CASHIER: 07/16/18 1034 [facility] [address] [place] [address]
--- NOTE | ~2018-07-16 | DS ---
PATIENT:JOSE VALADEZ :[birth year] MEDICAL RECORD: [id number] DISCHARGE SUMMARY ADMISSION DATE: 07/16/18 DISCHARGE DATE: 07/16/18 DATE OF ADMISSION: 07/16/2018 DATE OF DISCHARGE: 07/16/2018 DIAGNOSES: Metastatic cervical cancer, right ureteral obstruction, anemia. CLINICAL HISTORY: This is a 43-year-old female, who I discovered to have metastatic cervical cancer when she presented with vaginal bleeding plus right-sided hydronephrosis. She had a right ureteral stent inserted by interventional radiology via an antegrade approach as I could not get into the ureteral orifice from below as there was cervical cancer infiltrating into the bladder. In the interim, the patient has had radiation treatment. When I performed the cystoscopy and right ureteral stent exchange on 07/16/2018, Dr. Alva was also present and he did an examination under anesthesia. He noted some possible residual growths. These were biopsied. They turned out to be benign and inflammatory. She was found on her preoperative testing to be anemic with a hemoglobin of about 8. She was admitted under Dr. Alva's care and given blood transfusion. He will coordinate her oncologic care between the radiation oncologist and a gynecologic oncologist. She was discharged home. She will follow up with Dr. Alva. TRANSINT:[id number] Voice Confirmation ID: [id number] DOCUMENT ID: [id number] SAJAN SEALS MD at 1023 CC: [id number] DICTATION DATE: 08/04/18 1547 ZONE SUPERVISOR FIREARMS: 08/04/18 1558 DIS IN 07/16/18 [place] [address] [place] [address]
[~2018-07-16 06:18] MED LIST changes: +ATIVAN1 MG PO; +HYDROCODONE-APA1 TAB PO; +MEGACE400 MG/10 PO; +PHENERGAN25 M1
[2018-07-16 06:39] LABS: BASOPHILS 0 % (0-2); EOSINOPHILS 2.1 % (0-7); HEMATOCRIT 26.6 % (36.0-48.0); HEMOGLOBIN 8.5 g/dL (12-16); IMMATURE GRANULOCYTES 0.8 % (0-5); LYMPHOCYTES 13.7 % (15-50); MCH 33.9 pg (26.0-34.0); MEAN PLATELET VOLUME 9.5 fL (7.4-10.4); MONOCYTES 4.2 % (2-11); NEUTROPHILS 79.2 % (40-80); RBC 2.51 10x6/uL (4.00-5.40); RDW 14.6 % (11.5-14.5); WBC 7.5 10x3/uL (4.8-10.8)
[2018-07-16 06:47] LABS: APTT 22.9 SECONDS (22.8-39.4); INR 0.88 (0.85-1.17); PROTIME 11.6 SECONDS (11.6-15.0)
[2018-07-16 06:51] LABS: PLATELET COUNT 220 10x3/uL (130-400)
[2018-07-16 08:11] VITALS: BP 100/56; BMI 17.7
[2018-07-16 08:16] VITALS: BP 100/56; BMI 17.7
[2018-07-16 08:32] LABS: HCG URINE NEGATIVE (NEGATIVE)
[2018-07-16 14:01] VITALS: BP 100/64; Ht 160 cm; Wt 45.5 kg
== END 2018-07-16 18:20 | disposition home or self-care (01) ==
LOC: D.OPS 06:18 → D.PAN 08:25 → D.OPS 08:30 → D.PAN 09:35 → D.OPS 10:00 → D.SDCHOLD 12:30 → OBSVTIME 12:30 → D.OPS 12:30 → D.MS 12:30
PROVIDERS: Anesthesiology; Urology
DX: D64.9 Anemia, unspecified (principal); N82.0 Vesicovaginal fistula; C79.9 Secondary malignant neoplasm of unspecified site; C53.9 Malignant neoplasm of cervix uteri, unspecified; F17.200 Nicotine dependence, unspecified, uncomplicated; N39.3 Stress incontinence (female) (male); F41.9 Anxiety disorder, unspecified

== ENCOUNTER 2018-08-19 11:03 | Emergency (ER) | payer OTHER ==
[~2018-08-19] VITALS: Ht 160 cm; Wt 45.5 kg
[2018-08-19 11:16] VITALS: Ht 160 cm; Wt 45.5 kg
[2018-08-19 11:43] LABS: BASOPHILS 0.1 % (0-2); EOSINOPHILS 2.1 % (0-7); HEMATOCRIT 34.2 % (36.0-48.0); HEMOGLOBIN 11.5 g/dL (12-16); IMMATURE GRANULOCYTES 0.4 % (0-5); LYMPHOCYTES 1.5 % (15-50); MCH 32.4 pg (26.0-34.0); MCHC 33.6 g/dL (31.0-37.0); MCV 96.3 fL (80.0-100.0); MEAN PLATELET VOLUME 9.7 fL (7.4-10.4); MONOCYTES 7.2 % (2-11); NEUTROPHILS 88.7 % (40-80); RBC 3.55 10x6/uL (4.00-5.40); WBC 13.6 10x3/uL (4.8-10.8)
[2018-08-19 11:45] LABS: PLATELET COUNT 161 10x3/uL (130-400)
[2018-08-19 11:53] LABS: ALBUMIN 2.8 g/dL (3.4-5.0); ANION GAP 7.7 mmol/L (8-16); BILIRUBIN - TOTAL 0.3 mg/dL (0.2-1.3); CALCIUM 8.3 mg/dL (8.5-10.1); CARBON DIOXIDE 30.6 mmol/L (21.0-32.0); POTASSIUM - SERUM 3.3 mmol/L (3.5-5.1)
[2018-08-19 13:01] LABS: APPEARANCE HAZY (CLEAR); BILIRUBIN NEGATIVE (NEGATIVE); COLOR STRAW (YELLOW); GLUCOSE NEGATIVE (NEGATIVE); KETONE NEGATIVE (NEGATIVE); NITRITE NEGATIVE (NEGATIVE); PROTEIN NEGATIVE (NEGATIVE); SPECIFIC GRAVITY 1.005 (1.005-1.020); UROBILINOGEN NORMAL (NORMAL)
[2018-08-19 13:05] LABS: BACTERIA FEW /hpf (NONE SEEN); EPITHELIAL CELLS 0-5 /hpf (0-5); MUCUS <1+ /lpf (NONE SEEN); RED CELLS - URINE 0-5 /hpf (0-5)
[2018-08-19 14:02] VITALS: BP 106/60
== END 2018-08-19 14:03 | disposition home or self-care (01) ==
LOC: D.ER 11:03
PROVIDERS: Family Medicine
DX: R10.9 Unspecified abdominal pain (principal); E87.6 Hypokalemia; C53.9 Malignant neoplasm of cervix uteri, unspecified; C79.89 Secondary malignant neoplasm of other specified sites; N13.9 Obstructive and reflux uropathy, unspecified; R33.9 Retention of urine, unspecified; F17.200 Nicotine dependence, unspecified, uncomplicated

== ENCOUNTER 2018-08-24 13:26 | Inpatient (IN) | payer OTHER ==
[~2018-08-24] VITALS: Ht 160 cm; Wt 45.4 kg
--- NOTE | ~2018-08-24 | MORECARE ---
CASE MANAGEMENT DISCHARGE SUMMARY PATIENT: JOSE VALADEZ UNIT: [id number] ADM DATE: 08/24/18 AGE: 43 : [birth year] SEX: F ROOM/BED: D.1213 AUTHOR: ANNYDOC PHYSICIAN: REFERRING PHYSICIAN: MARYBEL PICKETT MD DATE OF SERVICE: 08/31/18 Discharge Plan Patient Name: JOSE VALADEZ Facility: [facility]:[employer] : 1975 Planned Disposition: Home Anticipated Discharge Date: Discharge Date: 08/29/2018 Expected LOS: Initial Reviewer: [email or web address] Initial Review Date: 08/24/2018 Generated: 08/31/18 10:21 am Comments DCP- Discharge Planning Updated by [email or web address]: Katy Zurita on 08/25/18 12:[address] Patient Name: JOSE VALADEZ Admission Status: Elective Accout number: [id number] Admission Date: 08-24-2018 : 1975 Admission Diagnosis: Attending: MARYBEL PICKETT Current LOS: 1 Anticipated DC Date: Planned Disposition: Home Primary Insurance: [employer]GED MEDICAID Discharge Planning Comments: CM MET WITH PATIENT'S GERALDE AIDEE) TO ASSESS DISCHARGING PLANNING NEEDS. PATIENT WAS ASLEEP. JAMIL STATED THAT THEY LIVE TOGETHER AND HE WILL BE THE ONE TO TAKE HER HOME AT DC. SHE IS INDEPENDENT WITH HER AT HOME, DOES NOT USE ANY DME OR COMMUNITY RESOURCES. THEY LIVE IN [place] AND HE STATED THAT HE KNOWS A [employer] HELIC[employer] AIRCREWMAN TO HELP HER IF SHE NEEDED IT. CM WILL CONTINUE TO FOLLOW AND ASSIST WITH DC PLANNING Scheduling Administrator: Katy Zurita DCPIA - Discharge Planning Initial Assessment Updated by [email or web address]: Katy Zurita on 08/25/18 1:19 pm * Is the patient Alert and Oriented? Yes * How many steps to enter\exit or inside your home? * PCP [facility] * Pharmacy [facility] * Preadmission Environment Home with Family * ADLs Independent * Equipment None * List name and contact numbers for known caregivers / representatives who currently or will assist patient after discharge: ALVERTO KEMP (MOTHER) [phone] * Community resources currently utilized None * Additional services required to return to the preadmission environment? No * Can the patient safely return to the preadmission environment? Yes * Has this patient been hospitalized within the prior 30 days at any hospital? No Last DP export: 08/25/18 12:32 p Patient Name: JOSE VALADEZ Page [id number] at 0922 All edits/amendments must be made on the electronic document DICTATION DATE: 08/31/18920 IMMUNOPATHOLOGIST: MISTY 08/31/18920 RPT#: [id number] DC DATE:08/29/18 STATUS: DIS IN [facility] [address] [place] [address] END OF REPORT
--- NOTE | ~2018-08-24 | OP ---
PATIENT NAME: JOSE VALADEZ MEDICAL RECORD: [id number] :[birth year] LOCATION:TOM[facility] [id number] ADMISSION DATE:08/24/18 SURGEON: SAJAN SEALS MD DATE OF OPERATION: 08/27/2018 SURGEON: Sajan Seals MD ANESTHESIA: General anesthesia by CHERRI Astudillo CRNA DIAGNOSES: Right emphysematous pyelonephritis, infected right ureteral stent. PROCEDURE: Cystoscopy and right ureteral stent removal. FINDINGS: Very inflamed bladder. No obvious bladder tumor or vesicovaginal fistula seen. SPECIMEN: Right ureteral stent. BLOOD LOSS: None. CLINICAL HISTORY: This is a 43-year-old female with metastatic cervical cancer. She had significant retroperitoneal lymphadenopathy causing right ureteral stent occlusion. I had inserted a metal right ureteral stent to keep the right kidney open. Lately, she has developed a lot of urinary incontinence after chemotherapy and radiation, which may be from formation of a vesicovaginal fistula. She presented to the hospital with acute flank pain on the right side as well as fevers and chills. CT scan of the abdomen and pelvis shows right hydroureteronephrosis with gas bubbles in the right renal collecting system. The stent is in correct position, but clearly it is not draining. She had insertion of a right nephrostomy tube for emphysematous pyelonephritis. At least 100 mL of pus was drained out of the kidney. The aspirate is growing gram-positive cocci and the urine is also growing gram-positive cocci. Blood cultures have so far shown no growth. She comes today to have the right ureteral stent removed. It is infected. No replacement of stent will be placed as the presence of the vesicovaginal fistula will lead to infection of any newly placed stent. The patient is aware that she is going to require a nephrostomy tube changes periodically from now on. She is already on IV antibiotics on the floor. No further antibiotics were given in the OR. DESCRIPTION OF PROCEDURE: The patient was given induction of general anesthesia. She was placed in dorsal lithotomy position and prepped and draped. Cystoscopy was performed using a 21-Congolese cystoscope with 30-degree lens. She has diffuse bladder inflammation in the trigonal area of the bladder. The ureteral stent was seen. Grasping forceps were used and the stent was entirely removed and sent to pathology for identification. Going back into the bladder with the cystoscope where previously I had seen tumors from invasive cervical cancer on the trigone of the bladder. These were gone and replaced by inflammatory tissue. At the last cystoscopy I had performed, I had a found a small vesicovaginal fistula, at the right posterior bladder near the dome. Looking around today, I cannot see an obvious vesicovaginal fistula, but she still continues to report ongoing vaginal leakage of urine. The bladder was emptied completely through the cystoscope sheath and then the scope was removed entirely. The patient was awakened and brought back to the recovery room. TRANSINT:[id number] Voice Confirmation ID: [id number] DOCUMENT ID: [id number] OPERATIVE REPORT [id number] JOSE VALADEZ, SAJAN Craven MD at 1246 CC: [id number] DICTATION DATE: 08/27/18 1026 ELECTRICAL TECH: 08/27/18 1115 ADM IN [facility] [address] [place] [address]
--- NOTE | ~2018-08-24 | HEMODYNAMI ---
PATIENT:JOSE VALADEZ MEDICAL RECORD: [id number] : 77 LOCATION:D. D.2220 ADMISSION DATE: 08/24/18 Generatedon:08/25/201817:18 Patient name: JOSE VALADEZ Patient #: [id number] SSN: : 1975 Date of study: 08/25/2018 Page: Of Hemodynamic Procedure Report Patient Data Patient Demographics Procedure consent was obtained First Name: JOSE Gender: Female Last Name: ALLYSON : 1975 Middle Initial: D Age: 43 year(s) Patient #: [id number] Race: Unknown Additional ID: [id number] Contact details Address: [address] [place] [address] [address] [facility] State: [place] City: [place] Zip code: [address] Past Medical History Allergies: No known allergies Admission Admission Data Admission Date: 08/24/2018 Admission Time: 17:55 Room #: D.2220 Procedure Procedure Types Cath Procedure Peripheral Cath Diagnostic Procedure Nephro Procedure Description Procedure Date Procedure Date: 08/25/2018 Procedure Start Time: 16:45 Procedure Staff Name Function Dano Balderas MD Performing Physician Edgar Birmingham RT Monitor Donna Page RN Nurse Ingris Merlos Scrub Parul Mendez RN Nurse Procedure Data Cath Procedure Fluoroscopy Diagnostic fluoroscopy Total fluoroscopy Time: 2.1 time: 2.1 min min Diagnostic fluoroscopy Total fluoroscopy dose: 17 dose: 17 mGy mGy Contrast Material Contrast Material Type Amount (ml) Isovue 300 12 Procedure Medications Medication Administration Route Dosage Lidocaine 1% added to field 20 Heparin Flush Bag added to field 1 bags (1000units/500ml NS) Oxygen etCO2 Nasal cannula 3 l/min unlisted medication 1 Versed I.V. 1 mg Fentanyl I.V. 50 mcg Versed I.V. 1 mg Fentanyl I.V. 50 mcg Hemodynamics Rest Heart Rate: 99 (bpm) Snapshots Pre Cath Intra NCS Post Cath Vital Signs Time Heart Resp SPO2 etCO2 NIBP Rhythm Pain Sedation Rate (ipm) (%) (mmHg) (mmHg) Status Level (bpm) 16:37:07 97 16 29 97/61(74) NSR 0 (11) 10(A) , No pain 16:41:09 94 19 94 23 98/60(73) NSR 0 (11) 10(A) , No pain 16:45:10 16 94 24.5 94/54(68) NSR 0 (11) 10(A) , No pain 16:49:08 91 14 99 28.2 95/60(74) NSR 0 (11) 10(A) , No pain 16:53:08 88 12 99 23 96/57(71) NSR 0 (11) 10(A) , No pain 16:57:09 88 12 99 26 90/54(67) NSR 0 (11) 10(A) , No pain 17:01:09 87 12 99 31.2 93/54(65) NSR 0 (11) 10(A) , No pain 17:05:09 86 13 99 29.7 87/56(66) NSR 0 (11) 10(A) , No pain 17:09:06 85 13 99 30.5 91/57(67) NSR 0 (11) 10(A) , No pain 17:13:06 98 29 93/55(69) NSR 0 (11) 10(A) , No pain 17:17:05 98 29.7 92/59(74) NSR 0 (11) 10(A) , No pain Medications Time Medication Route Dose Verified Delivered Reason Notes Effec tiveness by by 16:41:40 Lidocaine 1% added 20ml Dano Matson to vial Andrey Balderas MD field MD 16:41:50 Heparin Flush added 1 Dano Matson Bag to bags Andrey Balderas MD (1000units/500ml field DUFF NS) 16:42:07 Oxygen etCO2 3 Dano Donna Nasal l/min Camilo Balderas RN cannula 16:50:20 CEFEPIME IV 1 GM Andrea Thakur RN, MD 16:50:32 Versed I.V. 1 mg Dano Teran for Andrea Balderas RN sedation 16:52:02 Fentanyl I.V. 50 Dano Teran for mcg Andrea Balderas RN sedation 16:57:03 Versed I.V. 1 mg Dano Teran for Andrea Balderas RN sedation 16:57:12 Fentanyl I.V. 50 Dano Teran for mcg Andrea Balderas RN sedation Procedure Log Time Note 16:14:36 Edgar Valencia RT (R) (CV) sent for patient. Start room use. 16:14:47 Time tracking: Regular hours (M-F 7:00 - 5:00) 16:14:51 Plan of Care:Hemodynamics will remain stable., Cardiac rhythm will remain stable., Comfort level will be maintained., Respiratory function will remain adequate., Patient/ family verbilizes understanding of procedure., Procedure tolerated without complication., Recovers from procedure without complications.. 16:14:54 Use device set IR Diagnostic 16:14:56 Bag Decanter (2002S) opened to sterile field. 16:14:57 Sterile Angiographic Pack opened to sterile field. 16:14:57 Tegaderm 4 x 4 (1626W) opened to sterile field. 16:15:07 Patient received from Med/Surg to IR Alert and oriented. Tansferred to table in Prone position. 16:15:09 Correct patient and procedure confirmed by team. 16:15:15 Signed procedure consent form obtained from patient. 16:15:16 ECG and BP/O2 sat monitors applied to patient. 16:15:17 Full Disclosure recording started 16:15:18 - 16:15:21 H&P Date Dictated: 08/25/2018 Within 30 days and on chart.. 16:15:22 Pre-procedure instructions explained to patient. 16:15:22 Pre-op teaching completed and patient verbalized understanding. 16:15:24 Family in waiting room. 16:15:26 Patient NPO since Midnight. 16:15:37 Patient allergic to No known allergies 16:15:42 Is the patient allergic to Iodine/contrast media? No. 16:16:56 Is patient on blood thinner?No 16:17:39 Patient diabetic? No. 16:17:42 - 16:17:43 ----Pre-sedation anethsthesia assessment.---- 16:17:51 Previous problem with sedation/anesthesia? No ? 16:17:53 Snore? Yes 16:17:55 Sleep apnea? No 16:17:58 Deviated septum? No 16:17:59 Opens mouth fully? Yes 16:18:01 Sticks out tongue? Yes 16:18:07 Airway obstruction? No ? 16:18:11 Dentures? No ? 16:24:17 IV patent on arrival in left forearm with 0.9% NaCl at [facility]. 16:36:05 Vital chart was started 16:36:06 Baseline sample Acquired. 16:36:38 Right Lumbar was prepped with chlora-prep and draped in sterile fashion . 16:41:40 Lidocaine 1% 20ml vial added to field was administered by Dano Balderas MD; ; 16:41:50 Heparin Flush Bag (1000units/500ml NS) 1 bags added to field was administered by Dano Balderas MD; ; 16:42:07 Oxygen 3 l/min etCO2 Nasal cannula was administered by Donna Page RN; ; 16:45:33 Physician arrived 16:45:33 --------ALL STOP TIME OUT------ 16:45:34 Final Timeout: patient, procedure, and site verified with staff and physician. All members of the team are in agreement. 16:45:39 Lumbar site verified by team. 16:45:44 Sedation plan: IV Moderate Sedation Medication:Versed, Fentanyl 16:45:48 Procedure started. 16:45:53 Local anesthetic to Lumbar area with Lidocaine 1% by Dano Balderas MD.INITIAL ACCESS ONLY 16:48:35 CHIBA 22 X 15 needle opened to sterile field. 16:48:36 KIT, INTRODUCER ACCUSTICK II W/C ([id number]) opened to sterile field. 16:50:20 CEFEPIME 1 GM IV was administered by Parul Andrea RN; ; 16:50:32 Versed 1 mg I.V. was administered by Parul Mendez RN; for sedation; 16:52:02 Fentanyl 50 mcg I.V. was administered by Parul Mendez RN; for sedation ; 16:54:00 STOPCOCK 3-Way Large Bore ([id number]) opened to sterile field. 16:54:01 BAG, DRAINAGE EMPTY 600ML W/ADDI ([id number]) opened to sterile field. 16:54:01 NITINOL .018 80cm wire ([id number]) opened to sterile field. 16:57:03 Versed 1 mg I.V. was administered by Parul Mendez RN; for sedation; 16:57:12 Fentanyl 50 mcg I.V. was administered by Parul Mendez RN; for sedation ; 16:57:38 BENTSON 145cm wire ([id number]) opened to sterile field. 16:59:18 Abscession 8Fr drainage catheter ([id number]) opened to sterile field. 17:04:50 SUTURE ETHILON 2-0 BLK MONO FS opened to sterile field. 17:05:16 8 fr.drainage tube sutured in with 2.0 ethilon 17:10:04 Procedure ended.(Physican Out) 17:10:54 Fluoroscopy time 02.10 minutes. 17:10:58 Fluoroscopy dose: 17 mGy 17:10:58 Flurop Dose total: 17 17:11:00 Sharps counted by scrub and verified by R.N. 17:11:27 Post-op/insertion site Right Lumbar area dressed using a 4 x 4 and Tegaderm. 17:11:30 Post procedure instruction explained to patient.Patient verbalizes understanding. 17:11:31 Procedure and supply charges have been captured, reviewed, submitted an d are correct. 17:13:50 Contrast amount:Isovue 300 12ml. 17:17:34 Report given to Med/Surg. 17:17:38 Patient transfered to Med/Surg with Bed. 17:18:00 Vital chart was stopped Device Usage Item Name Manufacture Quantity Catalog Hospital Part Current Minima l Lot# / Number Charge Number Stock Stock Serial# Code Bag Decanter Microtek 1 [id number] 5 () Medical Inc. Sterile Cardinal 1 [id number] 134287 804069 5 Angiographic Health Pack Tegaderm 4 x 3M 1 1626W 999628 844156 441423 5 4 (1626W) CHIBA 22 X [employer] 1 [id number] 268752 914032 5 [id number] 15 needle KIT, [place] 1 [id number] 306247 703733 910495 5 [id number] INTRODUCER Scientific ACCUSTICK II W/C ([id number]) STOPCOCK [employer] 1 [id number] 355176 1903 269262 5 [id number] 3-Way Large Bore (A63691) BAG, [facility] 1 [id number] 354416 441013 264471 5 DRAINAGE EMPTY 600ML W/ADDI (HXL227) NITINOL .018 Medtronic 1 [id number] 681651 665275 5 [id number] 80cm wire ([id number]) [facility] 1 G56651 750697 251148 5 145cm wire (B75520) Abscession Angiodynamics 1 [id number] 671417 929264 873747 5 8Fr drainage catheter ([id number]) SUTURE Ethicon 1 664H 808111 217602 5 ETHILON 2-0 BLK MONO FS Signature Audit [place] Stage Time Signature Unsigned Intra-Procedure 08/25/2018 Edgar 5:17:58 PM Shuffield RT (R) (CV) Signatures Monitor : Edgar Signature : Samanield RT Date : Time : [id number] [place] [address]
[2018-08-24 19:43] LABS: ANION GAP 16.2 mmol/L (8-16); BILIRUBIN - TOTAL 0.68 mg/dL (0.2-1.3); CARBON DIOXIDE 22.6 mmol/L (21.0-32.0); POTASSIUM - SERUM 3.8 mmol/L (3.5-5.1)
[2018-08-24 20:01] VITALS: BP 98/66; BMI 17.7
[2018-08-24 20:03] LABS: ALBUMIN 1.7 g/dL (3.4-5.0); CALCIUM 8.2 mg/dL (8.5-10.1); CREATININE - SERUM 0.9 mg/dL (0.6-1.3); PROTEIN - SERUM 5.2 g/dL (6.4-8.2)
[2018-08-24] MEDS ORDERED: FERROUS SULFAT325 MG PO (20:05)
[2018-08-25] VITALS (17 sets, daily range): BP systolic 90–139; BP diastolic 47–68; Ht 160 cm; Wt 45.4 kg
[2018-08-25 02:01] LABS: CREATINE KINASE 13 UL (21-215)
[2018-08-25 02:03] LABS: TROPONIN-I < 0.017 ng/mL (0.000-0.060)
[2018-08-25 07:41] LABS: CKMB 1.6 U/L (0.0-3.6); CREATINE KINASE 93 UL (21-215); TROPONIN-I < 0.017 ng/mL (0.000-0.060)
[2018-08-25 09:05] LABS: ALBUMIN 1.7 g/dL (3.4-5.0); ANION GAP 14.2 mmol/L (8-16); BILIRUBIN - TOTAL 0.88 mg/dL (0.2-1.3); CALCIUM 7.6 mg/dL (8.5-10.1); CARBON DIOXIDE 22.6 mmol/L (21.0-32.0); CREATININE - SERUM 0.9 mg/dL (0.6-1.3); POTASSIUM - SERUM 3.8 mmol/L (3.5-5.1); PROTEIN - SERUM 5.5 g/dL (6.4-8.2)
[2018-08-25 09:40] LABS: APTT 32.3 SECONDS (22.8-39.4); INR 1.08 (0.85-1.17); PROTIME 13.6 SECONDS (11.6-15.0)
[2018-08-25 10:08] LABS: BASOPHILS 0.2 % (0-2); EOSINOPHILS 0.5 % (0-7); HEMATOCRIT 22.7 % (36.0-48.0); HEMOGLOBIN 7.8 g/dL (12-16); IMMATURE GRANULOCYTES 4.4 % (0-5); LYMPHOCYTES 7.8 % (15-50); MCH 31.1 pg (26.0-34.0); MCHC 34.4 g/dL (31.0-37.0); MCV 90.4 fL (80.0-100.0); MEAN PLATELET VOLUME 10.5 fL (7.4-10.4); NEUTROPHILS 75.1 % (40-80); RBC 2.51 10x6/uL (4.00-5.40); WBC 12.4 10x3/uL (4.8-10.8)
[2018-08-25 10:10] LABS: PLATELET COUNT 76 10x3/uL (130-400)
[2018-08-25 10:27] LABS: PLATELET ESTIMATE DECREASED
[2018-08-25 13:18] LABS: CKMB 0.1 U/L (0.0-3.6); CREATINE KINASE 25 UL (21-215); TROPONIN-I < 0.017 ng/mL (0.000-0.060)
[2018-08-25 18:24] LABS: APPEARANCE TURBID (CLEAR); BILIRUBIN NEGATIVE (NEGATIVE); COLOR DK YELLOW (YELLOW); GLUCOSE NEGATIVE (NEGATIVE); KETONE NEGATIVE (NEGATIVE); NITRITE NEGATIVE (NEGATIVE); PROTEIN 3+ mg/dL (NEGATIVE); SPECIFIC GRAVITY 1.015 (1.005-1.020); UROBILINOGEN NORMAL (NORMAL); WHITE CELLS - URINE 0-5 /hpf (0-5)
[2018-08-25 18:25] LABS: BACTERIA MANY /hpf (NONE SEEN); EPITHELIAL CELLS NSEEN /hpf (0-5); RED CELLS - URINE 0-5 /hpf (0-5)
[2018-08-25 18:32] LABS: EOS BF 0 %; MACROPHAGES BF 0 %; MESOTHELIALS BF 5 %; NEUT - BF 95 %
[2018-08-26 06:08] LABS: BASOPHILS 0.3 % (0-2); EOSINOPHILS 1.2 % (0-7); HEMATOCRIT 26.3 % (36.0-48.0); IMMATURE GRANULOCYTES 6.4 % (0-5); LYMPHOCYTES 8.8 % (15-50); MCH 30.5 pg (26.0-34.0); MCHC 34.2 g/dL (31.0-37.0); MCV 89.2 fL (80.0-100.0); MEAN PLATELET VOLUME 10.3 fL (7.4-10.4); MONOCYTES 12.3 % (2-11); PLATELET COUNT 66 10x3/uL (130-400); RBC 2.95 10x6/uL (4.00-5.40); RDW 15.7 % (11.5-14.5); WBC 12.4 10x3/uL (4.8-10.8)
[2018-08-26 06:26] LABS: ALBUMIN 1.3 g/dL (3.4-5.0); BILIRUBIN - TOTAL 0.37 mg/dL (0.2-1.3); CARBON DIOXIDE 23.3 mmol/L (21.0-32.0); CREATININE - SERUM 0.9 mg/dL (0.6-1.3); POTASSIUM - SERUM 3.3 mmol/L (3.5-5.1); PROTEIN - SERUM 5.4 g/dL (6.4-8.2)
[2018-08-26 09:19] VITALS: BP 94/59
[2018-08-26 11:16] LABS: ANION GAP 9.7 mmol/L (8-16); CARBON DIOXIDE 26.6 mmol/L (21.0-32.0); POTASSIUM - SERUM 3.3 mmol/L (3.5-5.1)
[2018-08-26 13:01] VITALS: BP 114/73
[2018-08-26 13:03] VITALS: BP 92/73
[2018-08-26 16:28] VITALS: BP 104/63
[2018-08-26 20:20] VITALS: BP 94/55
[2018-08-27] VITALS (12 sets, daily range): BP systolic 94–136; BP diastolic 45–86
[2018-08-27 07:39] LABS: BASOPHILS 0.5 % (0-2); EOSINOPHILS 2.3 % (0-7); HEMATOCRIT 26.9 % (36.0-48.0); HEMOGLOBIN 9.1 g/dL (12-16); IMMATURE GRANULOCYTES 6.4 % (0-5); LYMPHOCYTES 5.8 % (15-50); MCH 30.5 pg (26.0-34.0); MCHC 33.8 g/dL (31.0-37.0); MCV 90.3 fL (80.0-100.0); MEAN PLATELET VOLUME 9.9 fL (7.4-10.4); MONOCYTES 12.5 % (2-11); NEUTROPHILS 72.5 % (40-80); PLATELET COUNT 76 10x3/uL (130-400); RBC 2.98 10x6/uL (4.00-5.40); RDW 15.8 % (11.5-14.5); WBC 10.6 10x3/uL (4.8-10.8)
[2018-08-27 07:49] LABS: ALBUMIN 1.4 g/dL (3.4-5.0); ALKALINE PHOSPHATASE 412 U/L (46-116); ALT (SGPT) 19 U/L (10-68); BILIRUBIN - TOTAL 0.34 mg/dL (0.2-1.3); CALC OSMOLALITY 275 mosm/kg (275-300); CHLORIDE - SERUM 107 mmol/L (98-107); CREATININE - SERUM 0.8 mg/dL (0.6-1.3); GLUCOSE 84 mg/dL (74-106); POTASSIUM - SERUM 3.3 mmol/L (3.5-5.1); PROTEIN - SERUM 5.7 g/dL (6.4-8.2); SODIUM 140 mmol/L (136-145); eGFR NON AFRICAN AMERICAN 83 mL/min (90-120)
[2018-08-27 07:56] LABS: UREA NITROGEN 7 mg/dL (7-18)
[2018-08-27 09:43] LABS: HCG SERUM NEGATIVE (NEGATIVE)
[2018-08-28 00:35] VITALS: BP 126/71
[2018-08-28 04:43] VITALS: BP 107/67
[2018-08-28 05:32] LABS: BASOPHILS 0.2 % (0-2); EOSINOPHILS 0.1 % (0-7); LYMPHOCYTES 5.5 % (15-50); MCH 30.7 pg (26.0-34.0); MCHC 33.7 g/dL (31.0-37.0); MCV 90.9 fL (80.0-100.0); MEAN PLATELET VOLUME 11.1 fL (7.4-10.4); MONOCYTES 7.4 % (2-11); NEUTROPHILS 82.8 % (40-80); PLATELET COUNT 82 10x3/uL (130-400); RDW 15.7 % (11.5-14.5); WBC 9.4 10x3/uL (4.8-10.8)
[2018-08-28 05:39] LABS: HEMATOCRIT 32.9 % (36.0-48.0); HEMOGLOBIN 11.1 g/dL (12-16); RBC 3.62 10x6/uL (4.00-5.40)
[2018-08-28 05:47] LABS: ALBUMIN 1.5 g/dL (3.4-5.0); ALKALINE PHOSPHATASE 434 U/L (46-116); ALT (SGPT) 25 U/L (10-68); BILIRUBIN - TOTAL 0.28 mg/dL (0.2-1.3); CALC OSMOLALITY 282 mosm/kg (275-300); CALCIUM 8.2 mg/dL (8.5-10.1); CARBON DIOXIDE 24.6 mmol/L (21.0-32.0); CHLORIDE - SERUM 108 mmol/L (98-107); CREATININE - SERUM 0.8 mg/dL (0.6-1.3); GLUCOSE 111 mg/dL (74-106); POTASSIUM - SERUM 4.1 mmol/L (3.5-5.1); PROTEIN - SERUM 6.3 g/dL (6.4-8.2); SODIUM 142 mmol/L (136-145); UREA NITROGEN 9 mg/dL (7-18); eGFR NON AFRICAN AMERICAN 83 mL/min (90-120)
[2018-08-28 08:00] VITALS: BP 114/76
[2018-08-28 13:18] LABS: FUNGUS STAIN Final report (())
[2018-08-28 15:00] VITALS: BP 112/74
[2018-08-28 20:06] VITALS: BP 153/83
[2018-08-29 00:37] VITALS: BP 122/79
[2018-08-29 04:00] VITALS: BP 121/75
[2018-08-29 07:43] LABS: BASOPHILS 0.4 % (0-2); EOSINOPHILS 1.5 % (0-7); HEMATOCRIT 29.8 % (36.0-48.0); HEMOGLOBIN 9.8 g/dL (12-16); IMMATURE GRANULOCYTES 4.2 % (0-5); MCH 30.2 pg (26.0-34.0); MCHC 32.9 g/dL (31.0-37.0); MCV 91.7 fL (80.0-100.0); MEAN PLATELET VOLUME 10.2 fL (7.4-10.4); MONOCYTES 9.3 % (2-11); NEUTROPHILS 77.6 % (40-80); PLATELET COUNT 96 10x3/uL (130-400); RBC 3.25 10x6/uL (4.00-5.40); RDW 15.7 % (11.5-14.5); WBC 9.2 10x3/uL (4.8-10.8)
[2018-08-29 07:58] LABS: ALKALINE PHOSPHATASE 415 U/L (46-116); BILIRUBIN - TOTAL 0.26 mg/dL (0.2-1.3); CALC OSMOLALITY 281 mosm/kg (275-300); CALCIUM 8.6 mg/dL (8.5-10.1); CARBON DIOXIDE 26.9 mmol/L (21.0-32.0); CHLORIDE - SERUM 104 mmol/L (98-107); CREATININE - SERUM 0.8 mg/dL (0.6-1.3); GLUCOSE 79 mg/dL (74-106); PROTEIN - SERUM 7.1 g/dL (6.4-8.2); SODIUM 143 mmol/L (136-145); UREA NITROGEN 8 mg/dL (7-18); eGFR NON AFRICAN AMERICAN 83 mL/min (90-120)
[2018-08-29 07:59] LABS: ALT (SGPT) 35 U/L (10-68); POTASSIUM - SERUM 3.3 mmol/L (3.5-5.1)
[2018-08-29 08:45] VITALS: BP 111/76
[2018-08-29] MEDS ORDERED: AMOXICILLIN875 MG PO (10:35)
[2018-08-29] MEDS ORDERED: PHENERGAN25 MG RC (10:35)
[2018-08-29] MEDS ORDERED: WELLBUTRIN XL150 M1 PO (10:36)
[2018-08-29] MEDS ORDERED: PROTONIX40 MG PO (10:36)
[2018-08-31 17:11] LABS: AEROBE ID Final report (()); RESULT 1 Aerococcus urinae (())
[2018-09-23 07:32] LABS: FUNGUS MYCOLOGY CULTURE Final report (())
== END 2018-08-29 11:20 | disposition home or self-care (01) | DRG 698 ==
LOC: D.MS 13:26 → D.M3 17:55 → D.MS 18:14 → D.WS 08-27 11:40 → D.M3 08-28 17:24
PROVIDERS: Anesthesiology; Family Medicine; General Practice; Internal Medicine Nephrology; Urology
PROC: 0T903ZZ Drainage of Right Kidney, Percutaneous Approach (ICD-10-PCS; 2018-08-25)
PROC: 0W993ZZ Drainage of Right Pleural Cavity, Percutaneous Approach (ICD-10-PCS; 2018-08-26)
PROC: 0TP98DZ Removal of Intraluminal Device from Ureter, Via Natural or Artificial Opening Endoscopic (ICD-10-PCS; principal; 2018-08-27 08:45)
DX: T83.592A Infection and inflammatory reaction due to indwelling ureteral stent, initial encounter (principal); A41.9 Sepsis, unspecified organism; E43 Unspecified severe protein-calorie malnutrition; C79.11 Secondary malignant neoplasm of bladder; N17.9 Acute kidney failure, unspecified; J90 Pleural effusion, not elsewhere classified; Y83.8 Other surgical procedures as the cause of abnormal reaction of the patient, or of later complication, without mention of misadventure at the time of the procedure; J44.9 Chronic obstructive pulmonary disease, unspecified; F32.9 Major depressive disorder, single episode, unspecified; F41.9 Anxiety disorder, unspecified; K21.9 Gastro-esophageal reflux disease without esophagitis; C53.9 Malignant neoplasm of cervix uteri, unspecified; D64.81 Anemia due to antineoplastic chemotherapy

== ENCOUNTER 2018-09-23 07:37 | Outpatient (CLI) | payer OTHER ==
[~2018-09-23] VITALS: Ht 160 cm; Wt 42.7 kg
--- NOTE | ~2018-09-23 | HEMODYNAMI ---
PATIENT:JOSE VALADEZ MEDICAL RECORD: [id number] : 77 LOCATION:D. ADMISSION DATE: 09/23/18 Generatedon:09/23/201810:13 Patient name: JOSE VALADEZ Patient #: [id number] SSN: : 1975 Date of study: 09/23/2018 Page: Of Hemodynamic Procedure Report Patient Data Patient Demographics Procedure consent was obtained First Name: JOSE Gender: Female Last Name: ALLYSON : 1975 [facility] Initial: D Age: 43 year(s) Patient #: [id number] Race: Unknown Additional ID: [id number] Contact details Address: [address] [place] [address] [employer] State: [place] City: [place] Zip code: [address] Past Medical History Allergies: No known allergies Admission Admission Data Admission Date: 09/23/2018 Admission Time: 7:37 Procedure Procedure Types Cath Procedure Peripheral Cath Diagnostic Procedure Nephro Nephrostomy Tube Exchange Procedure Description Procedure Date Procedure Date: 09/23/2018 Procedure Start Time: 9:46 Procedure End Time: 10:12 Procedure Staff Name Jay Pablo MD Performing Physician Ingris Merlos Monitor Donna Page RN Nurse Parul Mendez RN Nurse Edgar Birmingham RT Scrub Procedure Data Cath Procedure Fluoroscopy Diagnostic fluoroscopy Total fluoroscopy Time: 1.7 time: 1.7 min min Diagnostic fluoroscopy Total fluoroscopy dose: 15 dose: 15 mGy mGy Contrast Material Contrast Material Type Amount (ml) Isovue 300 12 Procedure Medications Medication Administration Route Dosage Heparin Flush Bag added to field 1 bags (1000units/500ml NS) Lidocaine 1% added to field 20 Ancef (1Gm/50ml NS) I.V.P.B 1 g Versed I.V. 2 mg Hemodynamics Rest Heart Rate: 78 (bpm) Snapshots Pre Cath Intra NCS Post Cath Vital Signs Time Heart Resp SPO2 etCO2 NIBP (mmHg) Rhythm Pain Sedation Rate (ipm) (%) (mmHg) Status Level (bpm) 9:19:57 0 109/75(84) NSR 0 (11) 10(A) , No pain 9:23:59 0 101/68(89) NSR 0 (11) 10(A) , No pain 9:27:52 14 0 104/77(93) NSR 0 (11) 10(A) , No pain 9:31:56 88 19 31.6 104/54(97) NSR 0 (11) 10(A) , No pain 9:35:50 90 15 13.5 108/79(91) NSR 0 (11) 10(A) , No pain 9:39:45 103 16 32.4 109/80(99) NSR 0 (11) 10(A) , No pain 9:43:41 86 16 31.6 111/83(95) NSR 0 (11) 10(A) , No pain 9:48:40 75 19 100 24.8 Measuring NSR 0 (11) 10(A) , No pain 9:49:00 72 19 99 27.1 118/81(103) NSR 0 (11) 10(A) , No pain 9:53:00 92 16 33.9 118/81(103) NSR 0 (11) 10(A) , No pain 9:57:02 101 14 32.4 105/74(92) NSR 0 (11) 10(A) , No pain 10:00:59 88 16 33.1 105/73(93) NSR 0 (11) 10(A) , No pain 10:04:57 89 16 33.9 103/70(90) NSR 0 (11) 10(A) , No pain 10:08:52 88 16 33.9 106/74(92) NSR 0 (11) 10(A) , No pain Medications Time Medication Route Dose Verified Delivered Reason Notes Effec tiveness by by 9:33:23 Heparin Flush added 1 M Dori Pablo used for Bag to bags MD DUFF procedure (1000units/500ml field NS) 9:33:36 Lidocaine 1% added 20ml M Dori Pablo used for to vial MD DUFF procedure field 9:34:52 Ancef (1Gm/50ml I.V.P.B 1 g Nadira Teran used for NS) MD Mendez residential monitor 9:48:47 Versed I.V. 2 mg Nadira Teran for MD Andrea BETHEA sedation Procedure Log Time Note 9:17:10 Parul Mendez RN sent for patient. Start room use. 9:17:14 Time tracking: Regular hours (M-F 7:00 - 5:00) 9:17:26 Plan of Care:Hemodynamics will remain stable., Cardiac rhythm will remain stable., Comfort level will be maintained., Respiratory function will remain adequate., Patient/ family verbilizes understanding of procedure., Procedure tolerated without complication., Recovers from procedure without complications.. 9:17:39 Patient received from Outpatients to IR Alert and oriented. Tansferred to table in Prone position. 9:17:42 Warm blankets on for patient comfort. 9:18:04 Correct patient and procedure confirmed by team. 9:18:07 Signed procedure consent form obtained from patient. 9:18:13 ECG and BP/O2 sat monitors applied to patient. 9:18:17 Full Disclosure recording started 9:18:18 - 9:18:56 Vital chart was started 9:19:57 H&P Date Dictated: 09/23/2018 Within 30 days and on chart.. 9:19:59 Pre-procedure instructions explained to patient. 9:20:07 Pre-op teaching completed and patient verbalized understanding. 9:20:20 Family in patients room. 9:21:38 Patient NPO since Midnight. 9:21:51 Patient allergic to No known allergies 9:21:57 Is the patient allergic to Iodine/contrast media? No. 9:22:58 Is patient on blood thinner?No 9:23:04 Patient diabetic? No. 9:23:17 Patient not . Patient has had hysterectomy. 9:23:22 ----Pre-sedation anethsthesia assessment.---- 9:23:29 Previous problem with sedation/anesthesia? No ? 9:23:32 Snore? No 9:23:37 Sleep apnea? No 9:23:40 Deviated septum? No 9:23:44 Opens mouth fully? Yes 9:23:46 Sticks out tongue? Yes 9:23:53 Dentures? No ? 9:25:38 Use device set IR Diagnostic 9:25:41 Bag Decanter (2002S) opened to sterile field. 9:25:43 Sterile Angiographic Pack opened to sterile field. 9:25:45 Tegaderm 4 x 4 (1626W) opened to sterile field. 9:26:05 BAG, DRAINAGE EMPTY 600ML W/ADDI ([id number]) opened to sterile field. 9:26:06 STOPCOCK 3-Way Large Bore (E83001) opened to sterile field. 9:32:00 IV started by Parul Mendez RN inright antecubital with a 22 gauge IV catheter with 0.9% NaCl at KVO. 9:32:25 Other IV stopped working. 9:32:45 Right Lumbar was prepped with chlora-prep and draped in sterile fashion . 9:32:46 Alarms reviewed. 9:32:47 Sharps counted by scrub and verified. 9:33:23 Heparin Flush Bag (1000units/500ml NS) 1 bags added to field was administered by Nadira Pablo MD; used for procedure; 9:33:36 Lidocaine 1% 20ml vial added to field was administered by Nadira Pablo MD; used for procedure; 9:34:29 r ac iv infiltrate- restart right hand with 22g. iv abx infusing 9:34:52 Ancef (1Gm/50ml NS) 1 g I.V.P.B was administered by Parul Mendez RN; used for procedure; 9:37:22 Baseline sample Acquired. 9:42:38 Physician paged 9:42:41 Physician arrived 9:42:42 --------ALL STOP TIME OUT------ 9:42:43 Final Timeout: patient, procedure, and site verified with staff and physician. All members of the team are in agreement. 9:42:55 Lumbar site verified by team. 9:43:40 Sedation plan: IV Moderate Sedation Medication:Versed, Fentanyl, Lidocaine 9:43:51 Procedure started. 9:46:01 Abscession 8Fr drainage catheter ([id number]) opened to sterile field. 9:46:05 GLIDE WIRE ANGLE 180cm (DX8487) opened to sterile field. 9:46:26 TORQUE DEVICE PLASTIC .038 ( TD01) opened to sterile field. 9:46:56 Local anesthetic to Lumbar area with Lidocaine 1% with 1cc bicarb by Nadira Pablo MD.INITIAL ACCESS ONLY 9:48:21 Contrast is injected thru the existing 8Fr absscession cath. 9:48:47 Versed 2 mg I.V. was administered by Parul Mendez RN; for sedation; 9:51:26 An 0.35glidewire is advanced thru existing tube into the bladder, old tube removed. 9:52:12 A new 8 fr. Abcession drain cath is inserted over the wire. 9:53:28 SUTURE ETHILON 2-0 BLK MONO FS opened to sterile field. 9:54:10 The 8fr. drain is sutured in with 2.[address] Pablo. 9:55:11 Procedure ended.(Physican Out) 9:55:42 Fluoroscopy time 01.70 minutes. 9:56:23 Fluoroscopy dose: 15 mGy 9:56:23 Flurop Dose total: 15 9:56:31 Contrast amount:Isovue 300 12ml. 9:56:34 Sharps counted by scrub and verified. 9:57:03 Post-op/insertion site Right Lumbar area dressed using a 4 x 4 and Tegaderm. 9:57:15 Patient needs reinforcement of post procedure teaching. 9:57:22 Post procedure instruction explained to patient.Patient verbalizes understanding. 9:57:25 Procedure and supply charges have been captured, reviewed, submitted an d are correct. 10:01:07 See physician's report for complete and final results. 10:01:12 Report given to Outpatients. 10:01:48 Patient transfered to Outpatients with Stretcher. 10:12:36 Procedure ended. 10:12:36 Full Disclosure recording stopped 10:13:07 Vital chart was stopped Device Usage Item Name Manufacture Quantity Catalog Hospital Part Current Minima l Lot# / Number Charge Number Stock Stock Serial# Code Bag Decanter Microtek 1 [id number] [id number] [id number] 5 () Medical Inc. Sterile Cardinal 1 [id number] [id number] 747757 5 Angiographic Health Pack Tegaderm 4 x 3M 1 1626W 409330 009842 064890 5 4 (1626W) BAG, [employer] 1 [id number] 274676 502215 150249 5 DRAINAGE EMPTY 600ML W/ADDI (WSV744) STOPCOCK [employer] 1 [id number] 267332 2497 [id number] 5 [id number] 3-Way Large Bore (O84008) Abscession Angiodynamics 1 [id number] 967587 887234 830628 5 8Fr drainage catheter ([id number]) GLIDE WIRE [employer] 1 [id number] 554232 623566 617506 5 ANGLE 180cm (KR4995) TORQUE [place] 1 TD01 879953 380459 128736 5 DEVICE Scientific PLASTIC .038 ( TD01) SUTURE Ethicon 1 664H 378615 806002 5 ETHILON 2-0 BLK MONO FS Signature Audit [place] Stage Time Signature Unsigned Intra-Procedure 09/23/2018 Ingris 10:13:05 AM Chelita Signatures Monitor : Ingris Signature : Chelita Date : Time : [facility] [address] [place] [address]
[~2018-09-23 07:37] MED LIST changes: +AMOXICILLIN875 MG PO; +FERROUS SULFAT325 MG PO; +PHENERGAN25 MG RC; +PROTONIX40 MG PO; +WELLBUTRIN XL150 M1 PO
[2018-09-23 08:22] LABS: BASOPHILS 0.2 % (0-2); HEMATOCRIT 31.8 % (36.0-48.0); HEMOGLOBIN 10.3 g/dL (12-16); IMMATURE GRANULOCYTES 0.2 % (0-5); LYMPHOCYTES 13.1 % (15-50); MCH 31.3 pg (26.0-34.0); MCHC 32.4 g/dL (31.0-37.0); MCV 96.7 fL (80.0-100.0); MEAN PLATELET VOLUME 9.1 fL (7.4-10.4); MONOCYTES 11.8 % (2-11); NEUTROPHILS 70.7 % (40-80); RBC 3.29 10x6/uL (4.00-5.40)
[2018-09-23 08:23] LABS: PLATELET COUNT 265 10x3/uL (130-400)
[2018-09-23 08:24] LABS: APTT 27.4 SECONDS (22.8-39.4); INR 1.02 (0.85-1.17)
[2018-09-23 08:29] LABS: CALC OSMOLALITY 281 mosm/kg (275-300); CALCIUM 9.1 mg/dL (8.5-10.1); CARBON DIOXIDE 25.9 mmol/L (21.0-32.0); CHLORIDE - SERUM 106 mmol/L (98-107); CREATININE - SERUM 0.7 mg/dL (0.6-1.3); GLUCOSE 77 mg/dL (74-106); POTASSIUM - SERUM 3.8 mmol/L (3.5-5.1); SODIUM 141 mmol/L (136-145); UREA NITROGEN 18 mg/dL (7-18); eGFR NON AFRICAN AMERICAN > 90 mL/min (90-120)
[2018-09-23] MEDS ORDERED: TYLENOL W/CODEI1 TAB PO (08:36)
[2018-09-23 08:37] VITALS: BP 108/72; Ht 160 cm; Wt 42.7 kg
[2018-09-23 11:07] LABS: HCG SERUM NEGATIVE (NEGATIVE)
== END 2018-09-23 12:35 | disposition home or self-care (01) ==
LOC: D.SP 07:37 → D.RAD 08:00 → D.SP 12:35
PROVIDERS: Radiology Vascular & Interventional Radiology
DX: C53.9 Malignant neoplasm of cervix uteri, unspecified (principal); C79.9 Secondary malignant neoplasm of unspecified site; Z01.812 Encounter for preprocedural laboratory examination

== ENCOUNTER 2018-10-27 02:12 | Inpatient (IN) | payer OTHER ==
[~2018-10-27] VITALS: Ht 160 cm; Wt 43.5 kg
--- NOTE | ~2018-10-27 | HEMODYNAMI ---
PATIENT:JOSE VALADEZ MEDICAL RECORD: [id number] : 77 LOCATION:D.MS [address]2204 ADMISSION DATE: 10/27/18 Generatedon:10/28/201810:22 Patient name: JOSE VALADEZ Patient #: [id number] SSN: : 1975 Date of study: 10/28/2018 Page: Of Hemodynamic Procedure Report Patient Data Patient Demographics Procedure consent was obtained First Name: JOSE Gender: Female Last Name: ALLYSON : 1975 Middle Initial: D Age: 43 year(s) Patient #: [id number] Race: Unknown Additional ID: [id number] Contact details Address: [address] [place] [address] [facility] State: [place] City: [place] Zip code: [address] Past Medical History Allergies: No known allergies Admission Admission Data Admission Date: 10/27/2018 Admission Time: 4:19 Room #: D.2204 Procedure Procedure Types Cath Procedure Peripheral Cath Diagnostic Procedure Nephro Procedure Description Procedure Date Procedure Date: 10/28/2018 Procedure Start Time: 9:59 Procedure Staff Name Function Ashvin Mcgregor MD Performing Physician Edgar Birmingham RT Scrub [place] Pena RT Monitor Parul Mendez RN Nurse Procedure Data Cath Procedure Fluoroscopy Diagnostic fluoroscopy Total fluoroscopy Time: 0 time: 0 min min Diagnostic fluoroscopy Total fluoroscopy dose: 3 dose: 3 mGy mGy Contrast Material Contrast Material Type Amount (ml) Isovue 300 15 Procedure Medications Medication Administration Route Dosage Heparin Flush Bag added to field 2 bags (1000units/500ml NS) Lidocaine 1% added to field 20 Fentanyl I.V. 50 mcg Versed I.V. 1 mg Versed I.V. 1 mg Fentanyl I.V. 50 mcg Hemodynamics Rest Heart Rate: 98 (bpm) Snapshots Pre Cath Intra NCS Post Cath Vital Signs Time Heart Resp SPO2 etCO2 NIBP Rhythm Pain Sedation Rate (ipm) (%) (mmHg) (mmHg) Status Level (bpm) 9:33:34 94 18 100 0 107/66(80) NSR 0 (11) 10(A) , No pain 9:37:36 91 13 100 0 106/68(88) NSR 0 (11) 10(A) , No pain 9:41:36 88 13 100 0 102/72(84) NSR 0 (11) 10(A) , No pain 9:45:35 87 12 0 104/68(88) NSR 0 (11) 10(A) , No pain 9:49:33 88 13 0 99/69(83) NSR 0 (11) 10(A) , No pain 9:53:30 91 12 0 100/66(85) NSR 0 (11) 10(A) , No pain 9:57:28 88 12 0 98/68(83) NSR 0 (11) 10(A) , No pain 10:01:26 91 15 99 0 96/64(80) NSR 0 (11) 10(A) , No pain 10:04:46 94 9 97 0 96/65(84) NSR 0 (11) 10(A) , No pain 10:08:44 92 9 100 46.7 95/62(78) NSR 0 (11) 10(A) , No pain 10:11:18 95 8 100 49.7 93/61(76) NSR 0 (11) 10(A) , No pain 10:15:21 98 11 100 48.9 98/62(78) NSR 0 (11) 10(A) , No pain 10:19:19 93 7 100 50.4 95/65(80) NSR 0 (11) 10(A) , No pain 10:21:08 94 8 100 45.9 94/65(76) NSR 0 (11) 10(A) , No pain Medications Time Medication Route Dose Verified Delivered Reason Notes Effec tiveness by by 9:37:50 Heparin Flush added 2 Ashvin Lock used for Bag to bags Mcgregor Mcgregor procedure (1000units/500ml field MD DUFF NS) 9:38:00 Lidocaine 1% added 20ml Ashvin Lock to vial Mcgregor Meche rincon MD, MD 10:01:15 Fentanyl I.V. 50 Ashvin Teran for mcg Mcgregorchristianne Mendez RN sedation 10:01:26 Versed I.V. 1 mg Ashvin Teran for Meche Mendez RN sedation 10:08:31 Versed I.V. 1 mg Ashvin Teran for Meche Mendez RN sedation 10:08:38 Fentanyl I.V. 50 Ashvin Teran for mcg Meche Mendez RN sedation Procedure Log Time Note 9:20:16 Edgar Birmingham RT (R) (CV) sent for patient. Start room use. 9:20:24 Time tracking: Regular hours (M-F 7:00 - 5:00) 9:20:29 Plan of Care:Hemodynamics will remain stable., Cardiac rhythm will remain stable., Comfort level will be maintained., Respiratory function will remain adequate., Patient/ family verbilizes understanding of procedure., Procedure tolerated without complication., Recovers from procedure without complications.. 9:20:35 Patient received from Med/Surg to IR Alert and oriented. Tansferred to table in Prone position. 9:20:37 Correct patient and procedure confirmed by team. 9:20:40 Signed procedure consent form obtained from patient. 9:20:41 ECG and BP/O2 sat monitors applied to patient. 9:20:43 Full Disclosure recording started 9:20:43 - 9:20:46 H&P Date Dictated: 10/28/2018 Within 30 days and on chart.. 9:20:47 Pre-procedure instructions explained to patient. 9:20:48 Pre-op teaching completed and patient verbalized understanding. 9:20:49 Family in waiting room. 9:20:51 Patient NPO since Breakfast. 9:21:01 Use device set IR Diagnostic 9:21:04 Bag Decanter () opened to sterile field. 9:21:04 Sterile Angiographic Pack opened to sterile field. 9:30:09 - 9:30:21 Patient allergic to No known allergies 9:30:26 Is the patient allergic to Iodine/contrast media? No. 9:30:30 Is patient on blood thinner?No 9:30:52 Patient diabetic? No. 9:30:55 - 9:30:58 ----Pre-sedation anethsthesia assessment.---- 9:31:03 Previous problem with sedation/anesthesia? No ? 9:31:09 Snore? No 9:31:11 Sleep apnea? No 9:31:14 Deviated septum? No 9:31:16 Opens mouth fully? Yes 9:31:18 Sticks out tongue? Yes 9:31:27 Airway obstruction? No ? 9:31:32 Dentures? No ? 9:31:34 - 9:31:49 IV patent on arrival in right wrist with D5/.45%NaCl at KVO. 9:32:01 Right renal area was prepped with chlora-prep and draped in sterile fashion 9:32:19 Vital chart was started 9:33:33 Baseline sample Acquired. 9:34:05 - 9:37:50 Heparin Flush Bag (1000units/500ml NS) 2 bags added to field was administered by Ashvin Mcgregor MD; used for procedure; 9:38:00 Lidocaine 1% 20ml vial added to field was administered by Ashvin Mcgregor MD; ; 9:53:57 STOPCOCK 3-Way Large Bore ([id number]) opened to sterile field. 9:53:58 BAG, DRAINAGE EMPTY 600ML W/ADDI ([id number]) opened to sterile field. 9:54:34 [employer] Sci All Purpose 8Fr drainage catheter ([id number]) opened to sterile field. 9:54:53 SUTURE ETHILON 2-0 BLK MONO FS opened to sterile field. 9:57:56 Physician arrived 9:57:57 --------ALL STOP TIME OUT------ 9:57:58 Final Timeout: patient, procedure, and site verified with staff and physician. All members of the team are in agreement. 9:59:08 Procedure started. 9:59:23 Local anesthetic to rt renal area with Lidocaine 1% by Ashvin Mcgregor MD.INITIAL ACCESS ONLY 9:59:54 ROADRUNNER .035 260 glide wire ([id number]) opened to sterile field. 10:01:15 Fentanyl 50 mcg I.V. was administered by Parul Mendez RN; for sedation ; 10:01:26 Versed 1 mg I.V. was administered by Parul Mendez RN; for sedation; 10:08:31 Versed 1 mg I.V. was administered by Parul Mendez RN; for sedation; 10:08:38 Fentanyl 50 mcg I.V. was administered by Parul Mendez RN; for sedation ; 10:14:00 8fr apd cath placed and sutured in place 10:14:06 Procedure ended.(Physican Out) 10:14:29 Contrast amount:Isovue 300 15ml. 10:14:46 Fluoroscopy time 00.00 minutes. 10:14:51 Fluoroscopy dose: 3 mGy 10:14:51 Flurop Dose total: 3 10:14:54 Procedure and supply charges have been captured, reviewed, submitted an d are correct. 10:21:17 Report given to Med/Surg. 10:22:22 Vital chart was stopped Device Usage Item Name Manufacture Quantity Catalog Hospital Part Current Minimal Lot# / Number Charge Number Stock Stock Serial# Code Bag Decanter Microtek 1 [id number] 5 () [employer] Sterile Cardinal 1 [id number] 919674 674309 5 Angiographic Health Pack STOPCOCK [facility] 1 [id number] 400717 5181 [id number] 5 [id number] 3-Way Large Bore ([id number]) BAG, Merit 1 MGU275 677810 421398 980252 5 DRAINAGE Medical EMPTY 600ML W/ADDI (LFJ782) [employer] 1 [id number] 387212 210774 889087 5 All Purpose Scientific 8Fr drainage catheter ([id number]) SUTURE Ethicon 1 664H 396219 357128 5 [facility] 2-[address] [facility] [id number] 825353 804207 245853 5 [id number] .035 260 glide wire (T44682) Signature Audit Tichnor Stage Time Signature Unsigned Intra-Procedure 10/28/2018 [place] Pena 10:22:18 AM RT(R) Signatures Monitor : [place] Pena RT Signature : Date : Time : [place] [address] [place] [address]
--- NOTE | ~2018-10-27 | MORECARE ---
CASE MANAGEMENT DISCHARGE SUMMARY PATIENT: JOSE VALADEZ UNIT: [id number] ADM DATE: 10/27/18 AGE: 43 : [birth year] SEX: F ROOM/BED: D.2204 AUTHOR: MARTIN MCCORMICK PHYSICIAN: REFERRING PHYSICIAN: MIKEL CISNEROS MD DATE OF SERVICE: 10/28/18 Discharge Plan Patient Name: JOSE VALADEZ Facility: [facility]:[place] : 1975 Planned Disposition: Home Anticipated Discharge Date: Discharge Date: Expected LOS: Initial Reviewer: [email or web address] Initial Review Date: 10/27/2018 Generated: 10/28/18 1:53 pm Comments DCP- Discharge Planning Updated by [email or web address]: Katy Zurita on 10/28/18 11:[address] Patient Name: JOSE VALADEZ Admission Status: ER Accout number: [id number] Admission Date: 10-27-2018 : 1975 Admission Diagnosis: Attending: MIKEL CISNEROS Current LOS: 1 Anticipated DC Date: Planned Disposition: Home Primary Insurance: [employer]ED [employer]ICA[employer] Discharge Planning Comments: CM met with patient to assess discharge planning needs. She stated that she lives with her fianc?e (Darren) and plans to return there at discharge. She is independent with her care at home. She does not use any DME or community resources. She has help if she needs anything and denies any HH needs at this time. CM will continue to follow and assist with DC planning as needed Alley Worker: Katy Zurita DCPIA - Discharge Planning Initial Assessment Updated by [email or web address]: Katy Zurita on 10/28/18 12:48 pm * Is the patient Alert and Oriented? Yes * How many steps to enter\exit or inside your home? * PCP [facility] * [facility] * Preadmission Environment Home with Family * ADLs Independent * Equipment None * List name and contact numbers for known caregivers / representatives who currently or will assist patient after discharge: Maria Ines bowen (mother) [phone] * Verbal permission to speak to the caregivers and representatives has been obtained from the patient. N/A * Community resources currently utilized None * Additional services required to return to the preadmission environment? No * Can the patient safely return to the preadmission environment? Yes * Has this patient been hospitalized within the prior 30 days at any hospital? No Patient Name: JOSE VALADEZ Page 98252 at 1253 All edits/amendments must be made on the electronic document DICTATION DATE: 10/28/181252 ADVOCACY DIRECTOR: MISTY 10/28/18 1253 RPT#: [id number] DC DATE: STATUS: ADM IN [facility] [address] [place] [address] END OF REPORT
--- NOTE | ~2018-10-27 | MORECARE ---
CASE MANAGEMENT DISCHARGE SUMMARY PATIENT: JOSE VALADEZ UNIT: [id number] ADM DATE: 10/28/18 AGE: 43 : 77 SEX: F ROOM/BED: D.2204 AUTHOR: MARTIN MCCORMICK PHYSICIAN: REFERRING PHYSICIAN: MIKEL CISNEROS MD DATE OF SERVICE: 10/30/18 Discharge Plan Patient Name: JOSE VALADEZ Facility: [facility]:[place] : 1975 Planned Disposition: Home Anticipated Discharge Date: Discharge Date: Expected LOS: Initial Reviewer: [email or web address] Initial Review Date: 10/27/2018 Generated: 10/30/18 12:22 pm Comments DCP- Discharge Planning Updated by [email or web address]: Katy Zurita on 10/30/18 10:[address] Patient discharging home today, she did not want home health, she stated that she knows how to take care of her nephrostomy tube. She stated that she had everything she needed. CM will continue to follow DCP- Discharge Planning Updated by [email or web address]: Katy Zurita on 10/28/18 11:[address] Patient Name: JOSE VALADEZ Admission Status: ER Accout number: [id number] Admission Date: 10-27-2018 : 1975 Admission Diagnosis: Attending: MIKEL CISNEROS Current LOS: 1 Anticipated DC Date: Planned Disposition: Home Primary Insurance: [employer] MA[employer]GED MEDICAID Discharge Planning Comments: CM met with patient to assess discharge planning needs. She stated that she lives with her fianc?e (Darren) and plans to return there at discharge. She is independent with her care at home. She does not use any DME or community resources. She has help if she needs anything and denies any HH needs at this time. CM will continue to follow and assist with DC planning as needed Manager Community Relations: Katy Zurita DCPIA - Discharge Planning Initial Assessment Updated by [email or web address]: Katy Zurita on 10/28/18 12:48 pm * Is the patient Alert and Oriented? Yes * How many steps to enter\exit or inside your home? * PCP [facility] * [facility] * Preadmission Environment Home with Family * ADLs Independent * Equipment None * List name and contact numbers for known caregivers / representatives who currently or will assist patient after discharge: Maria Ines bowen (mother) [phone] * Verbal permission to speak to the caregivers and representatives has been obtained from the patient. N/A * Community resources currently utilized None * Additional services required to return to the preadmission environment? No * Can the patient safely return to the preadmission environment? Yes * Has this patient been hospitalized within the prior 30 days at any hospital? No Last DP export: 10/28/18 11:53 Patient Name: JOSE VALADEZ Page 71255 at 1122 All edits/amendments must be made on the electronic document DICTATION DATE: 10/30/181120 MACHINE CLEANER: MISTY 10/30/181120 RPT#: [id number] DC DATE: STATUS: ADM IN [facility] [address] [place] [address] END OF REPORT
--- NOTE | ~2018-10-27 | MORECARE ---
CASE MANAGEMENT DISCHARGE SUMMARY PATIENT: JOSE VALADEZ UNIT: [id number] ADM DATE: 10/28/18 AGE: 43 : [birth year] SEX: F ROOM/BED: D.2204 AUTHOR: MARTIN MCCORMICK PHYSICIAN: REFERRING PHYSICIAN: MIKEL CISNEROS MD DATE OF SERVICE: 11/02/18 Discharge Plan Patient Name: JOSE VALADEZ Facility: [facility]:[place] : 1975 Planned Disposition: Home Anticipated Discharge Date: Discharge Date: 10/30/2018 Expected LOS: 0 Initial Reviewer: [email or web address] Initial Review Date: 10/27/2018 Generated: 11/02/18 3:48 pm Comments DCP- Discharge Planning Updated by [email or web address]: Katy Zurita on 10/30/18 10:[address] Patient discharging home today, she did not want home health, she stated that she knows how to take care of her nephrostomy tube. She stated that she had everything she needed. CM will continue to follow DCP- Discharge Planning Updated by [email or web address]: Katy Zurita on 10/28/18 11:[address] Patient Name: JOSE VALADEZ Admission Status: ER Accout number: [id number] Admission Date: 10-27-2018 : 1975 Admission Diagnosis: Attending: MIKEL CISNEROS Current LOS: 1 Anticipated DC Date: Planned Disposition: Home Primary Insurance: [employer] MA[employer]GED MEDICAID Discharge Planning Comments: CM met with patient to assess discharge planning needs. She stated that she lives with her fianc?e (Darren) and plans to return there at discharge. She is independent with her care at home. She does not use any DME or community resources. She has help if she needs anything and denies any HH needs at this time. CM will continue to follow and assist with DC planning as needed Stereo Equipment Repairer: Katy Zurita DCPIA - Discharge Planning Initial Assessment Updated by [email or web address]: Katy Zurita on 10/28/18 12:48 pm * Is the patient Alert and Oriented? Yes * How many steps to enter\exit or inside your home? * PCP [facility] * [facility] * Preadmission Environment Home with Family * ADLs Independent * Equipment None * List name and contact numbers for known caregivers / representatives who currently or will assist patient after discharge: Maria Ines bowen (mother) [phone] * Verbal permission to speak to the caregivers and representatives has been obtained from the patient. N/A * Community resources currently utilized None * Additional services required to return to the preadmission environment? No * Can the patient safely return to the preadmission environment? Yes * Has this patient been hospitalized within the prior 30 days at any hospital? No Last DP export: 10/30/18 10:22 Patient Name: JOSE VALADEZ Page 15548 at 1448 All edits/amendments must be made on the electronic document DICTATION DATE: 11/02/181447 INTERSTATE BUS DRIVER: MISTY 11/02/181447 RPT#: [id number] DC DATE:10/30/18 STATUS: DIS IN [facility] [address] [place] [address] END OF REPORT
[~2018-10-27 02:12] MED LIST changes: +TYLENOL W/CODEI1 TAB PO
[2018-10-27 06:31] VITALS: BP 91/58; BMI 17.0
[2018-10-27 08:07] VITALS: BP 92/59
[2018-10-27 10:20] LABS: BASOPHILS 0.2 % (0-2); EOSINOPHILS 6.6 % (0-7); HEMATOCRIT 28.9 % (36.0-48.0); HEMOGLOBIN 9.3 g/dL (12-16); IMMATURE GRANULOCYTES 0.3 % (0-5); LYMPHOCYTES 12.9 % (15-50); MCH 31.2 pg (26.0-34.0); MCHC 32.2 g/dL (31.0-37.0); MEAN PLATELET VOLUME 9.1 fL (7.4-10.4); MONOCYTES 8.8 % (2-11); NEUTROPHILS 71.2 % (40-80); PLATELET COUNT 216 10x3/uL (130-400); RBC 2.98 10x6/uL (4.00-5.40); WBC 6.4 10x3/uL (4.8-10.8)
[2018-10-27 10:34] LABS: ALBUMIN 2.7 g/dL (3.4-5.0); ALKALINE PHOSPHATASE 187 U/L (46-116); ALT (SGPT) 63 U/L (10-68); BILIRUBIN - TOTAL 0.13 mg/dL (0.2-1.3); CALC OSMOLALITY 287 mosm/kg (275-300); CALCIUM 7.9 mg/dL (8.5-10.1); CARBON DIOXIDE 25.3 mmol/L (21.0-32.0); CHLORIDE - SERUM 108 mmol/L (98-107); CREATININE - SERUM 0.8 mg/dL (0.6-1.3); POTASSIUM - SERUM 3.8 mmol/L (3.5-5.1); PROTEIN - SERUM 6.5 g/dL (6.4-8.2); SODIUM 143 mmol/L (136-145); UREA NITROGEN 14 mg/dL (7-18); eGFR NON AFRICAN AMERICAN 83 mL/min (90-120)
[2018-10-27 10:35] LABS: GLUCOSE 131 mg/dL (74-106)
[2018-10-27 10:53] VITALS: Ht 160 cm; Wt 43.5 kg
[2018-10-27 12:45] VITALS: BP 90/52
[2018-10-27 13:37] LABS: APPEARANCE CLOUDY (CLEAR); BILIRUBIN NEGATIVE (NEGATIVE); COLOR YELLOW (YELLOW); GLUCOSE NEGATIVE (NEGATIVE); KETONE NEGATIVE (NEGATIVE); NITRITE NEGATIVE (NEGATIVE); PROTEIN 1+ mg/dL (NEGATIVE); SPECIFIC GRAVITY 1.005 (1.005-1.020); UROBILINOGEN NORMAL (NORMAL); WHITE CELLS - URINE 25-50 /hpf (0-5)
[2018-10-27 13:38] LABS: BACTERIA MANY /hpf (NONE SEEN); EPITHELIAL CELLS 0-5 /hpf (0-5); MUCUS <1+ /lpf (NONE SEEN)
[2018-10-27 16:40] VITALS: BP 96/59
[2018-10-27 20:00] VITALS: BP 96/56
[2018-10-28 00:40] VITALS: BP 94/45
[2018-10-28 04:27] LABS: BASOPHILS 0 % (0-2); EOSINOPHILS 10.1 % (0-7); HEMATOCRIT 28.2 % (36.0-48.0); HEMOGLOBIN 9.1 g/dL (12-16); IMMATURE GRANULOCYTES 0.2 % (0-5); LYMPHOCYTES 14.5 % (15-50); MCH 31.5 pg (26.0-34.0); MCHC 32.3 g/dL (31.0-37.0); MCV 97.6 fL (80.0-100.0); MEAN PLATELET VOLUME 9.3 fL (7.4-10.4); MONOCYTES 12.6 % (2-11); NEUTROPHILS 62.6 % (40-80); PLATELET COUNT 222 10x3/uL (130-400); RBC 2.89 10x6/uL (4.00-5.40); RDW 14.1 % (11.5-14.5); WBC 4.8 10x3/uL (4.8-10.8)
[2018-10-28 04:39] VITALS: BP 93/51
[2018-10-28 04:42] LABS: ALBUMIN 2.3 g/dL (3.4-5.0); ALKALINE PHOSPHATASE 164 U/L (46-116); ALT (SGPT) 53 U/L (10-68); BILIRUBIN - TOTAL 0.05 mg/dL (0.2-1.3); CALC OSMOLALITY 286 mosm/kg (275-300); CALCIUM 7.6 mg/dL (8.5-10.1); CARBON DIOXIDE 25.3 mmol/L (21.0-32.0); CHLORIDE - SERUM 112 mmol/L (98-107); CREATININE - SERUM 0.8 mg/dL (0.6-1.3); GLUCOSE 105 mg/dL (74-106); POTASSIUM - SERUM 3.6 mmol/L (3.5-5.1); PROTEIN - SERUM 5.7 g/dL (6.4-8.2); SODIUM 145 mmol/L (136-145); eGFR NON AFRICAN AMERICAN 83 mL/min (90-120)
[2018-10-28 04:46] LABS: UREA NITROGEN 8 mg/dL (7-18)
[2018-10-28 08:00] LABS: APTT 31.5 SECONDS (22.8-39.4); INR 1.09 (0.85-1.17); PROTIME 13.6 SECONDS (11.6-15.0)
[2018-10-28 08:56] VITALS: BP 94/56
[2018-10-28 13:34] VITALS: BP 98/56
[2018-10-28 16:25] VITALS: BP 94/50
[2018-10-28 20:00] VITALS: BP 93/54
[2018-10-29] VITALS: BP 94/53
[2018-10-29 04:29] LABS: BASOPHILS 0.2 % (0-2); EOSINOPHILS 11.5 % (0-7); HEMATOCRIT 28.5 % (36.0-48.0); HEMOGLOBIN 9.1 g/dL (12-16); IMMATURE GRANULOCYTES 0.2 % (0-5); LYMPHOCYTES 14.8 % (15-50); MCH 30.7 pg (26.0-34.0); MCHC 31.9 g/dL (31.0-37.0); MCV 96.3 fL (80.0-100.0); MEAN PLATELET VOLUME 9.3 fL (7.4-10.4); MONOCYTES 11.5 % (2-11); NEUTROPHILS 61.8 % (40-80); PLATELET COUNT 216 10x3/uL (130-400); RBC 2.96 10x6/uL (4.00-5.40); RDW 13.7 % (11.5-14.5); WBC 4.3 10x3/uL (4.8-10.8)
[2018-10-29 04:50] VITALS: BP 111/69
[2018-10-29 04:53] LABS: ALBUMIN 2.3 g/dL (3.4-5.0); ANION GAP 10.9 mmol/L (8-16); BILIRUBIN - TOTAL 0.1 mg/dL (0.2-1.3); CALCIUM 7.5 mg/dL (8.5-10.1); CARBON DIOXIDE 27.7 mmol/L (21.0-32.0); CREATININE - SERUM 0.9 mg/dL (0.6-1.3); POTASSIUM - SERUM 3.6 mmol/L (3.5-5.1); PROTEIN - SERUM 5.8 g/dL (6.4-8.2)
[2018-10-29 09:12] VITALS: BP 107/98
[2018-10-29 12:58] VITALS: BP 108/68
[2018-10-29 15:17] VITALS: BP 98/67
[2018-10-29 19:00] VITALS: BP 91/55
[2018-10-30 00:58] VITALS: BP 101/58
[2018-10-30 05:02] LABS: BASOPHILS 0.2 % (0-2); EOSINOPHILS 14.2 % (0-7); HEMATOCRIT 29.3 % (36.0-48.0); HEMOGLOBIN 9.5 g/dL (12-16); IMMATURE GRANULOCYTES 0.2 % (0-5); LYMPHOCYTES 14.6 % (15-50); MCHC 32.4 g/dL (31.0-37.0); MCV 95.8 fL (80.0-100.0); MEAN PLATELET VOLUME 8.9 fL (7.4-10.4); MONOCYTES 13.5 % (2-11); NEUTROPHILS 57.3 % (40-80); PLATELET COUNT 219 10x3/uL (130-400); RBC 3.06 10x6/uL (4.00-5.40); RDW 13.5 % (11.5-14.5); WBC 4.4 10x3/uL (4.8-10.8)
[2018-10-30 05:14] LABS: ALBUMIN 2.4 g/dL (3.4-5.0); ALKALINE PHOSPHATASE 161 U/L (46-116); ALT (SGPT) 59 U/L (10-68); BILIRUBIN - TOTAL 0.14 mg/dL (0.2-1.3); CALC OSMOLALITY 281 mosm/kg (275-300); CALCIUM 8.3 mg/dL (8.5-10.1); CARBON DIOXIDE 30.7 mmol/L (21.0-32.0); CHLORIDE - SERUM 106 mmol/L (98-107); CREATININE - SERUM 0.8 mg/dL (0.6-1.3); GLUCOSE 88 mg/dL (74-106); POTASSIUM - SERUM 3.6 mmol/L (3.5-5.1); PROTEIN - SERUM 6.1 g/dL (6.4-8.2); SODIUM 143 mmol/L (136-145); UREA NITROGEN 7 mg/dL (7-18); eGFR NON AFRICAN AMERICAN 83 mL/min (90-120)
[2018-10-30 05:44] VITALS: BP 112/75
[2018-10-30 08:01] VITALS: BP 111/75
[2018-10-30] MEDS ORDERED: Nicoderm [PBKC] TRANSDERM (09:52)
[2018-10-30] MEDS ORDERED: OMNICEF300 MG PO (09:53)
== END 2018-10-30 12:14 | disposition home or self-care (01) | DRG 699 ==
LOC: D.ER 02:12 → D.MS 04:19 → OBSVTIME 04:19 → D.MS 10-28 13:16
PROVIDERS: Family Medicine; Specialist
PROC: 0T25X0Z Change Drainage Device in Kidney, External Approach (ICD-10-PCS; principal; 2018-10-28 09:20)
DX: T83.512A Infection and inflammatory reaction due to nephrostomy catheter, initial encounter (principal); N39.0 Urinary tract infection, site not specified; F17.213 Nicotine dependence, cigarettes, with withdrawal; Y83.8 Other surgical procedures as the cause of abnormal reaction of the patient, or of later complication, without mention of misadventure at the time of the procedure; B96.4 Proteus (mirabilis) (morganii) as the cause of diseases classified elsewhere; N13.9 Obstructive and reflux uropathy, unspecified; C53.9 Malignant neoplasm of cervix uteri, unspecified; F41.9 Anxiety disorder, unspecified; F32.9 Major depressive disorder, single episode, unspecified

== ENCOUNTER 2018-12-09 08:50 | Outpatient (CLI) | payer OTHER ==
[~2018-12-09] VITALS: Ht 160 cm; Wt 46.8 kg
--- NOTE | ~2018-12-09 | HEMODYNAMI ---
PATIENT:JOSE VALADEZ MEDICAL RECORD: [id number] : 77 LOCATION:[facility] ADMISSION DATE: 12/09/18 Generatedon:12/09/201810:49 Patient name: JOSE VALADEZ Patient #: [id number] SSN: : 1975 Date of study: 12/09/2018 Page: Of Hemodynamic Procedure Report Patient Data Patient Demographics Procedure consent was obtained First Name: JOSE Gender: Female Last Name: ALLYSON : 1975 [facility] Initial: D Age: 43 year(s) Patient #: [id number] Race: Unknown Additional ID: [id number] Contact details Address: [address] [place] [address] [employer] State: [place] City: [place] Zip code: [address] Past Medical History Allergies: No known allergies Admission Admission Data Admission Date: 12/09/2018 Admission Time: 8:50 Weight (lbs.): 130 Weight (kg.): 58.97 Procedure Procedure Types Cath Procedure Peripheral Cath 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 Peripheral Procedures Nephro Nephrostogram Thru Existing Procedure Description Procedure Date Procedure Date: 12/09/2018 Procedure Start Time: 10:23 Procedure Staff Name Function Dano Balderas MD Performing Physician India Pena RT Economic Development Coordinator Donna Page RN Nurse Edgar Birmingham RT Scrub Procedure Data Cath Procedure Fluoroscopy Diagnostic fluoroscopy Total fluoroscopy Time: 2 time: 2 min min Diagnostic fluoroscopy Total fluoroscopy dose: 29 dose: 29 mGy mGy Contrast Material Contrast Material Type Amount (ml) Isovue 300 20 Diagnostic catheters Device Type Used For End Catheter Placement Merit Impress KA 2 5Fr 40CM catheter ([id number]) Procedure Medications Medication Administration Route Dosage Lidocaine 1% added to field 20 Heparin Flush Bag added to field 1 bags (1000units/500ml NS) Oxygen etCO2 Nasal cannula 4 l/min Fentanyl I.V. 50 mcg Versed I.V. 2 mg Fentanyl I.V. 50 mcg Versed I.V. 2 mg unlisted medication I.V. 1 g Hemodynamics Rest Heart Rate: 83 (bpm) Snapshots Pre Cath Intra NCS Post Cath Vital Signs Time Heart Resp SPO2 etCO2 NIBP Rhythm Pain Sedation Rate (ipm) (%) (mmHg) (mmHg) Status Level (bpm) 10:14:28 85 26 100 36 104/72(84) NSR 0 (11) 10(A) , No pain 10:18:26 78 30 100 38.2 105/68(90) NSR 0 (11) 10(A) , No pain 10:22:21 91 32 100 36 106/75(92) NSR 0 (11) 10(A) , No pain 10:26:17 99 13 100 36 105/74(81) NSR 0 (11) 10(A) , No pain 10:30:18 100 11 98 33 110/65(93) NSR 0 (11) 8(A) , No pain 10:34:18 93 9 97 33 99/64(81) NSR 0 (11) 8(A) , No pain 10:38:16 96 6 95 21.8 102/70(90) NSR 0 (11) 8(A) , No pain 10:41:16 91 11 97 27.7 102/73(81) NSR 0 (11) 8(A) , No pain 10:45:11 90 10 98 14.2 101/70(85) NSR 0 (11) 8(A) , No pain Medications Time Medication Route Dose Verified Delivered Reason Notes Eff ectiveness by by 10:24:07 Lidocaine 1% added 20ml Dano Matson used for to vial Andrey Balderas MD procedure field DUFF 10:24:24 Heparin Flush added 1 bags Dano Matson used for Bag to Andrey Balderas MD procedure (1000units/500ml field DUFF NS) 10:28:23 Oxygen etCO2 4l/min Dano Thompson for Nasal Camilo Balderas RN sedation cannula 10:28:42 Fentanyl I.V. 50 mcg Dano Thompson for Nathalie robles awake @ Camilo Balderas RN sedation 10:31:30 10:28:51 Versed I.V. 2 mg Dano Thompson for Nathalie robles awake @ Camilo Balderas RN sedation 10:31:27 10:31:20 Fentanyl I.V. 50 mcg Dano Thompson for Mos tly Camilo Balderas RN sedation sleeping @ 10:40:10 10:34:08 Versed I.V. 2 mg Dano Cortezine for Rachel herrera Camilo Balderas RN sedation sleeping @ MD 10:40:07 10:36:36 cefepime I.V. 1 g Dano Thompson used for Camilo Balderas firmware software verification engineer MD Procedure Log Time Note 10:06:45 Patient Weight : 130 lbs 10:07:08 Time tracking: Regular hours (M-F 7:00 - 5:00) 10:07:32 Plan of Care:Hemodynamics will remain stable., Cardiac rhythm will remain stable., Comfort level will be maintained., Respiratory function will remain adequate., Patient/ family verbilizes understanding of procedure., Procedure tolerated without complication., Recovers from procedure without complications.. 10:07:43 Patient received from Outpatients to IR Alert and oriented. Tansferred to table in Prone position. 10:07:48 Signed procedure consent form obtained from patient. 10:07:58 H&P Date Dictated: 12/09/2018 Within 30 days and on chart.. 10:08:01 Pre-procedure instructions explained to patient. 10:08:02 Pre-op teaching completed and patient verbalized understanding. 10:08:04 Family in waiting room. 10:08:07 Patient NPO since Midnight. 10:08:15 Patient allergic to No known allergies 10:08:20 Is the patient allergic to Iodine/contrast media? No. 10:08:23 Is patient on blood thinner?No 10:08:27 Patient diabetic? No. 10:08:29 - 10:08:29 ----Pre-sedation anethsthesia assessment.---- 10:08:32 Previous problem with sedation/anesthesia? No ? 10:08:36 Snore? Yes 10:08:39 Sleep apnea? No 10:08:43 Deviated septum? No 10:08:46 Opens mouth fully? Yes 10:08:49 Sticks out tongue? Yes 10:08:52 Airway obstruction? No ? 10:08:56 Dentures? No ? 10:08:58 - 10:09:18 IV patent on arrival in right forearm with D5/.45%NaCl at KVO. 10:09:34 Right renal area was prepped with chlora-prep and draped in sterile fashion 10:09:47 - 10:09:53 Use device set IR Diagnostic 10:09:58 Tegaderm 4 x 4 ([id number]) opened to sterile field. 10:09:59 Sterile Angiographic Pack opened to sterile field. 10:10:03 Bag Decanter (2002S) opened to sterile field. 10:12:50 ECG and BP/O2 sat monitors applied to patient. 10:12:52 Vital chart was started 10:13:25 Baseline sample Acquired. 10:13:44 Full Disclosure recording started 10:13:46 - 10:22:53 Physician arrived 10:22:54 --------ALL STOP TIME OUT------ 10::55 Final Timeout: patient, procedure, and site verified with staff and physician. All members of the team are in agreement. 10:23:15 Procedure started. 10:24:07 Lidocaine 1% 20ml vial added to field was administered by Dano Balderas MD; used for procedure; 10:24:24 Heparin Flush Bag (1000units/500ml NS) 1 bags added to field was administered by Dano Balderas MD; used for procedure; 10::23 Oxygen 4l/min etCO2 Nasal cannula was administered by Donna Page RN; for sedation; 10::40 BENTSON 145cm wire ([id number]) opened to sterile field. 10:: Abscession 8Fr drainage catheter ([id number]) opened to sterile field. 10:: Fentanyl 50 mcg I.V. was administered by Donna Page RN; for sedation; :: STOPCOCK 3-Way Large Bore ([id number]) opened to sterile field. 10::43 BAG, DRAINAGE EMPTY 600ML W/ADDI ([id number]) opened to sterile field. 10::51 Versed 2 mg I.V. was administered by Donna Page RN; for sedation; 10::51 SUTURE ETHILON 2-0 BLK MONO FS opened to sterile field. 10:31:20 Fentanyl 50 mcg I.V. was administered by Donna Page RN; for sedation; 10::27 Effectiveness of Versed delivered @ ::51 is: Fully awake 10:31:30 Effectiveness of Fentanyl delivered @ 10::42 is: Fully awake 10:32:13 nephrostomy tube exchanged with an 8 fr and [address] in place 10:32:27 A iXpert KA 2 5Fr 40CM catheter ([id number]) was advanced over the wire and used for . 10:34:08 Versed 2 mg I.V. was administered by Donna Page RN; for sedation; 10:36:19 Procedure ended.(Physican Out) 10::36 cefepime 1 g I.V. was administered by Donna Page RN; used for procedure; ::36 Fluoroscopy time 02.00 minutes. 10::42 Fluoroscopy dose: 29 mGy 10:36:42 Flurop Dose total: 29 10:36:47 Contrast amount:Isovue 300 20ml. 10:36:50 Procedure and supply charges have been captured, reviewed, submitted an d are correct. 10:39:52 Report given to Outpatients. 10:40:07 Effectiveness of Versed delivered @ 10:34:08 is: Mostly sleeping 10:40:10 Effectiveness of Fentanyl delivered @ 10:31:20 is: Mostly sleeping 10:49:27 Vital chart was stopped Device Usage Item Name Manufacture Quantity Catalog Hospital Part Current Minima l Lot# / Number Charge Number Stock Stock Serial# Code Tegaderm 4 x 3M 1 [id number] [id number] 5 4 (1626W) Sterile Cardinal 1 [id number] 322281 5 Angiographic Health Pack Bag Decanter Microtek 1 2001S 857887 33752 [id number] 5 (2001S) Medical Inc. Behalf 1 [id number] 763789 101919 5 145cm wire (E24223) Abscession Angiodynamics 1 [id number] 839918 294897 001431 5 8Fr drainage catheter ([id number]) [facility] 1 [id number] 160335 2172 719886 5 [id number] 3-Way Large Bore (O52001) BAG, [facility] 1 [id number] 483225 670326 626300 5 DRAINAGE EMPTY 600ML W/ADDI (HPF080) SUTURE Ethicon 1 664H 476240 750626 5 ETHILON 2-0 BLK MONO FS [facility] 1 [id number] 488783 923424 5 Impress KA 2 5Fr 40CM catheter ([id number]) Signature Audit Dell Stage Time Signature Unsigned Intra-Procedure 12/09/2018 India Pena 10:49:24 AM RT(R) [facility] [address] [place] [address]
[~2018-12-09 08:50] MED LIST changes: +Nicoderm [PBKC] TRANSDERM; +OMNICEF300 MG PO
[2018-12-09 09:16] LABS: BASOPHILS 0.1 % (0-2); HEMATOCRIT 35.8 % (36.0-48.0); HEMOGLOBIN 11.8 g/dL (12-16); IMMATURE GRANULOCYTES 0.1 % (0-5); LYMPHOCYTES 15.7 % (15-50); MCH 30.6 pg (26.0-34.0); MCV 92.7 fL (80.0-100.0); MONOCYTES 9.4 % (2-11); NEUTROPHILS 62.7 % (40-80); PLATELET COUNT 241 10x3/uL (130-400); RBC 3.86 10x6/uL (4.00-5.40); RDW 13.1 % (11.5-14.5); WBC 7.3 10x3/uL (4.8-10.8)
[2018-12-09 09:23] LABS: CALC OSMOLALITY 283 mosm/kg (275-300); CALCIUM 8.7 mg/dL (8.5-10.1); CARBON DIOXIDE 27.3 mmol/L (21.0-32.0); CHLORIDE - SERUM 106 mmol/L (98-107); CREATININE - SERUM 0.8 mg/dL (0.6-1.3); GLUCOSE 74 mg/dL (74-106); POTASSIUM - SERUM 3.8 mmol/L (3.5-5.1); SODIUM 143 mmol/L (136-145); UREA NITROGEN 13 mg/dL (7-18); eGFR NON AFRICAN AMERICAN 83 mL/min (90-120)
[2018-12-09 09:29] VITALS: BP 104/57; Ht 160 cm; Wt 46.8 kg
[2018-12-09 09:42] LABS: PROTIME 12.7 SECONDS (11.6-15.0)
[2018-12-09 09:43] LABS: APTT 29.3 SECONDS (22.8-39.4)
--- NOTE | 2018-12-09 11:34 | NUR ---
1040 SEE POST PROCEDURE CHECKLIST FOR VITAL SIGN TRENDS
[2018-12-10 08:47] LABS: HCG SERUM NEGATIVE (NEGATIVE)
== END 2018-12-09 13:00 | disposition home or self-care (01) ==
LOC: D.SP 08:50
PROVIDERS: Anesthesiology; General Practice
DX: N13.5 Crossing vessel and stricture of ureter without hydronephrosis (principal)

== ENCOUNTER → 2019-01-14 14:04 | Outpatient (CLI) | payer MEDICAID ==
[2018-12-09 09:29] VITALS: BMI 18.2
== END | disposition home or self-care (01) ==
LOC: D.SP 14:00 → D.RAD 14:00 → D.OPS 14:04
PROVIDERS: ATTEND Urology
DX: N36.8 Other specified disorders of urethra (principal); C53.9 Malignant neoplasm of cervix uteri, unspecified; C79.9 Secondary malignant neoplasm of unspecified site; Z01.812 Encounter for preprocedural laboratory examination; Z53.9 Procedure and treatment not carried out, unspecified reason

== ENCOUNTER 2019-01-29 09:21 | Outpatient (CLI) | payer MEDICAID ==
[~2019-01-29] VITALS: Ht 160 cm; Wt 38.6 kg
--- NOTE | ~2019-01-29 | HEMODYNAMI ---
PATIENT:JOSE VALADEZ MEDICAL RECORD: [id number] : 77 LOCATION:D.[facility] ADMISSION DATE: 01/29/19 Generatedon:01/29/201914:13 Patient name: JOSE VALADEZ Patient #: [id number] SSN: : 1975 Date of study: 01/29/2019 Page: Of Hemodynamic Procedure Report Patient Data Patient Demographics Procedure consent was obtained First Name: JOSE Gender: Female Last Name: ALLYSON : 1975 [facility] Initial: D Age: 44 year(s) Patient #: [id number] Race: Unknown Additional ID: [id number] Contact details Address: [address] [place] [address] [place] State: [place] City: [place] Zip code: [address] Past Medical History Allergies: No known allergies Admission Admission Data Admission Date: 01/29/2019 Admission Time: 9:21 Procedure Procedure Types Cath Procedure Peripheral Cath Diagnostic Procedure Nephro Nephrostomy Tube Exchange Procedure Description Procedure Date Procedure Date: 01/29/2019 Procedure Start Time: 13:57 Procedure End Time: 14:12 Procedure Staff Name Function Dano Balderas MD Performing Physician Ingris Merlos Monitor Parul Mendez RN Nurse Edgar Birmingham RT Scrub Procedure Data Cath Procedure Fluoroscopy Diagnostic fluoroscopy Total fluoroscopy Time: 1.1 time: 1.1 min min Diagnostic fluoroscopy Total fluoroscopy dose: 8 dose: 8 mGy mGy Contrast Material Contrast Material Type Amount (ml) Isovue 300 12 Procedure Medications Medication Administration Route Dosage Heparin Flush Bag added to field 2 bags (1000units/500ml NS) Lidocaine 1% added to field 20 Versed I.V. 2 mg Fentanyl I.V. 100 mcg Hemodynamics Rest Heart Rate: 98 (bpm) Snapshots Pre Cath Intra NCS Post Cath Vital Signs Time Heart Resp SPO2 etCO2 NIBP (mmHg) Rhythm Pain Sedation Rate (ipm) (%) (mmHg) Status Level (bpm) 13:47:18 110 14 97 0 114/79(98) NSR 0 (11) 10(A) , No pain 13:51:20 99 19 0 116/79(92) NSR 0 (11) 10(A) , No pain 13:55:18 109 15 99 22 126/85(103) NSR 0 (11) 10(A) , No pain 13:59:23 100 10 99 21.2 111/75(91) NSR 0 (11) 10(A) , No pain 14:03:25 103 10 100 44.7 110/73(86) NSR 0 (11) 10(A) , No pain 14:07:23 108 16 100 31.1 119/78(93) NSR 0 (11) 10(A) , No pain 14:11:22 0 No Cuff NSR 0 (11) 10(A) , No pain Medications Time Medication Route Dose Verified Delivered Reason Notes Effe ctiveness by by 13:58:18 Heparin Flush added 2 Dano Matson used for Bag to bags Andrey Balderas MD procedure (1000units/500ml field DUFF NS) 13:58:31 Lidocaine 1% added 20ml Dano Matson for local to vial Andrey Balderas MD anesthetic field DUFF 13:59:00 Versed I.V. 2 mg Dano Teran for Andrea Balderas RN sedation 13:59:10 Fentanyl I.V. 100 Dano Teran for mcg Andrea Balderas RN sedation Procedure Log Time Note 13:24:47 Time tracking: Regular hours (M-F 7:00 - 5:00) 13:24:58 Plan of Care:Hemodynamics will remain stable., Cardiac rhythm will remain stable., Comfort level will be maintained., Respiratory function will remain adequate., Patient/ family verbilizes understanding of procedure., Procedure tolerated without complication., Recovers from procedure without complications.. 13:25:12 Patient received from Outpatients to IR Alert and oriented. Tansferred to table in Prone position. 13:25:17 Warm blankets applied, and garfield hugger turned on for patient comfort. 13:25:22 Correct patient and procedure confirmed by team. 13:25:28 Signed procedure consent form obtained from patient. 13:25:30 ECG and BP/O2 sat monitors applied to patient. 13:25:35 Full Disclosure recording started 13:25:36 - 13:25:43 H&P Date Dictated: 01/29/2019 H&P Addendum completed by physician on day of procedure. (MUST COMPLETE FOR ALL OUTPATIENTS). 13:25:45 Pre-procedure instructions explained to patient. 13:25:47 Pre-op teaching completed and patient verbalized understanding. 13:26:12 Family in patients room. 13:26:20 Patient NPO since Midnight. 13:30:06 Patient allergic to No known allergies 13:30:13 Is the patient allergic to Iodine/contrast media? No. 13:30:21 Is patient on blood thinner?No 13:30:25 Patient diabetic? No. 13:31:04 Patient not . Patient has had hysterectomy. 13:31:07 ----Pre-sedation anethsthesia assessment.---- 13:31:13 Previous problem with sedation/anesthesia? No ? 13:31:16 Snore? Yes 13:31:19 Sleep apnea? No 13:31:22 Deviated septum? No 13:31:26 Opens mouth fully? Yes 13:31:28 Sticks out tongue? Yes 13:31:48 Dentures? No ? 13:32:07 IV patent on arrival in left hand with 0.9% NaCl at O. 13:33:22 Lumbar area was prepped with chlora-prep and draped in sterile fashion. RIGHT LUMBAR AREA. 13:34:00 Alarms reviewed. 13:34:01 Sharps counted by scrub and verified. 13:34:15 Use device set IR Diagnostic 13:34:22 Bag Decanter (2002) opened to sterile field. 13:34:26 Sterile Angiographic Pack opened to sterile field. 13:45:52 Abscession 8Fr drainage catheter ([id number]) opened to sterile field. 13:46:06 BAG, DRAINAGE EMPTY 600ML W/ADDI (WLC248) opened to sterile field. 13:46:07 STOPCOCK 3-Way Large Bore (Q15872) opened to sterile field. 13:46:21 Vital chart was started 13:46:42 Baseline sample Acquired. 13:52:30 Physician arrived 13:52:31 --------ALL STOP TIME OUT------ 13:52:33 Final Timeout: patient, procedure, and site verified with staff and physician. All members of the team are in agreement. 13:52:49 Lumbar site verified by team. 13:53:02 Sedation plan: IV Moderate Sedation Medication:Versed, Fentanyl 13:53:33 Procedure started. 13:57:03 BENTSON 145cm wire ([id number]) opened to sterile field. 13:57:20 Local anesthetic to Lumbar area with Lidocaine 1% by Dano Balderas MD.INITIAL ACCESS ONLY 13:58:18 Heparin Flush Bag (1000units/500ml NS) 2 bags added to field was administered by Dano Balderas MD; used for procedure; 13:58:31 Lidocaine 1% 20ml vial added to field was administered by Dano Balderas MD; for local anesthetic; 13:58:33 THE BENTSON WIRE IS INSERTED INTO THE EXISTING DRAINAGE CATHETER AND TH E EXISTING CATH REMOVED. 13:59:00 Versed 2 mg I.V. was administered by Parul Mendez RN; for sedation; 13:59:10 Fentanyl 100 mcg I.V. was administered by Parul Mendez RN; for sedation; 14:01:20 A NEW 8 ALBANIAN ABSCESSION CATH IS INSERTED OVER THE BENTSON WIRE INTO THE RIGHT KIDNEY. 14:02:02 CONTRAST IS USED TO CONFIRM NEW TUBE PLACEMENT INTO THE RIGHT KIDNEY. 14:02:39 SUTURE ETHILON 2-0 BLK MONO FS opened to sterile field. 14:03:13 THE TUBE IS SUTURED IN WITH 2.[address] BALDERAS. 14:04:25 Procedure ended.(Physican Out) 14:06:26 Fluoroscopy time 01.10 minutes. 14:06:31 Flurop Dose total: 8 14:06:31 Fluoroscopy dose: 8 mGy 14:06:39 Contrast amount:Isovue 300 12ml. 14:06:42 Sharps counted by scrub and verified. 14:09:10 Post-op/insertion site Right Lumbar area dressed using a 4 x 4 and Tegaderm. 14:09:20 Post procedure instruction explained to patient.Patient verbalizes understanding. 14:09:21 Patient needs reinforcement of post procedure teaching. 14:09:27 Procedure and supply charges have been captured, reviewed, submitted an d are correct. 14:09:31 See physician's report for complete and final results. 14:11:56 Report given to Outpatients. 14:12:04 Patient transfered to Outpatients with Stretcher. 14:12:12 Procedure ended. 14:12:12 Full Disclosure recording stopped 14:13:46 Vital chart was stopped Device Usage Item Name Manufacture Quantity Catalog Hospital Part Current Minima l Lot# / Number Charge Number Stock Stock Serial# Code Bag Decanter Microtek 1 [id number] 03198 143018 5 () Medical Inc. Sterile Cardinal 1 [id number] 957298 893175 5 Angiographic Health Pack Abscession Angiodynamics 1 [id number] 726188 705534 919830 5 8Fr drainage catheter ([id number]) BAG, [facility] 1 [id number] 759785 411315 686323 5 DRAINAGE EMPTY 600ML W/ADDI (JZW207) [facility] 1 U67555 076304 1242 188929 5 [id number] 3-Way Large Bore (P51524) BENTSON [employer] 1 K99055 225016 210562 5 145cm wire (K29460) SUTURE Ethicon 1 664H 469075 390755 5 ETHILON 2-0 BLK MONO FS Signature Audit Greene Stage Time Signature Unsigned Intra-Procedure 01/29/2019 Ingris 2:13:43 PM Chelita Signatures Monitor : Ingris Signature : Chelita Date : Time : [facility] [address] [place] [address]
[2019-01-29 09:51] LABS: ANION GAP 10.1 mmol/L (8-16); CALCIUM 8.7 mg/dL (8.5-10.1); CARBON DIOXIDE 29.8 mmol/L (21.0-32.0); CREATININE - SERUM 0.9 mg/dL (0.6-1.3); POTASSIUM - SERUM 3.9 mmol/L (3.5-5.1)
[2019-01-29 09:55] LABS: BASOPHILS 0.1 % (0-2); EOSINOPHILS 10.7 % (0-7); HEMATOCRIT 35.4 % (36.0-48.0); HEMOGLOBIN 11.6 g/dL (12-16); IMMATURE GRANULOCYTES 0.2 % (0-5); LYMPHOCYTES 10.4 % (15-50); MCH 29.8 pg (26.0-34.0); MCHC 32.8 g/dL (31.0-37.0); MEAN PLATELET VOLUME 9.1 fL (7.4-10.4); MONOCYTES 6.9 % (2-11); NEUTROPHILS 71.7 % (40-80); RBC 3.89 10x6/uL (4.00-5.40); RDW 13.8 % (11.5-14.5); WBC 9.1 10x3/uL (4.8-10.8)
[2019-01-29 09:58] LABS: APTT 29.2 SECONDS (22.8-39.4); INR 1.05 (0.85-1.17); PROTIME 13.2 SECONDS (11.6-15.0)
[2019-01-29 10:06] LABS: PLATELET COUNT 291 10x3/uL (130-400)
[2019-01-29 12:49] VITALS: BP 102/66; Ht 160 cm; Wt 38.6 kg
== END 2019-01-29 16:00 | disposition home or self-care (01) ==
LOC: D.SP 09:21 → D.RAD 14:00 → D.SP 14:00
PROVIDERS: General Practice; ATTEND Urology
DX: N13.5 Crossing vessel and stricture of ureter without hydronephrosis (principal); N13.4 Hydroureter; Z46.82 Encounter for fitting and adjustment of non-vascular catheter; Z01.812 Encounter for preprocedural laboratory examination

== ENCOUNTER 2019-02-18 17:33 | Inpatient (IN) | payer SELFPAY ==
[~2019-02-18] VITALS: Ht 160 cm; Wt 45.1 kg
--- NOTE | ~2019-02-18 | HEMODYNAMI ---
PATIENT:JOSE VALADEZ MEDICAL RECORD: [id number] : [birth year] [facility] AD[facility] DATE: 02/18/19 Generatedon:02/19/201914:26 Patient name: JOSE VALADEZ Patient #: [id number] SSN: : 1975 Date of study: 02/19/2019 Page: Of Hemodynamic Procedure Report Patient Data Patient Demographics Procedure consent was obtained First Name: JOSE Gender: Female Last Name: ALLYSON : 1975 Middle Initial: D Age: 44 year(s) Patient #: [id number] Race: Unknown Additional ID: [id number] Contact details Address: [address] [place] [address] [employer] [facility] State: [place] City: [place] Zip code: [address] Past Medical History Allergies: No known allergies Admission Admission Data Admission Date: 02/18/2019 Admission Time: 21:11 Room #: .2134 Procedure Procedure Types Cath Procedure Peripheral Cath Diagnostic Procedure Nephro Nephrostomy Tube Exchange Procedure Description Procedure Date Procedure Date: 02/19/2019 Procedure Start Time: 14:13 Procedure Staff Name Function Kavon Rios MD Performing Physician Edgar Birmingham RT Monitor India Pena RT Scrub Parul Mendez RN Nurse Procedure Data Cath Procedure Fluoroscopy Diagnostic fluoroscopy Total fluoroscopy Time: 1.2 time: 1.2 min min Diagnostic fluoroscopy Total fluoroscopy dose: 4 dose: 4 mGy mGy Contrast Material Contrast Material Type Amount (ml) Isovue 300 10 Hemodynamics Rest Pre Cath Intra NCS Post Cath Procedure Log Time Note 13:56:04 Edgar Birmingham RT (R) (CV) sent for patient. Start room use. 13:56:13 Time tracking: Regular hours (M-F 7:00 - 5:00) 13:56:23 Patient received from Med II to IR Alert and oriented. Tansferred to table in Supine position. 13:56:26 Correct patient and procedure confirmed by team. 13:56:28 Signed procedure consent form obtained from patient. 13:56:31 Full Disclosure recording started 13:56:31 - 13:56:33 Pre-procedure instructions explained to patient. 13:56:34 Pre-procedure instructions explained to patient. 13:56:34 Pre-op teaching completed and patient verbalized understanding. 13:56:46 Patient allergic to No known allergies 13:56:56 Is patient on blood thinner?No 13:57:03 Use device set IR Diagnostic 13:57:06 Bag Decanter (2001S) opened to sterile field. 13:57:07 Sterile Angiographic Pack opened to sterile field. 14:11:34 Right Lumbar was prepped with chlora-prep and draped in sterile fashion . 14:11:37 Alarms reviewed by R. N. 14:11:38 Sharps counted by scrub and verified by R.N. 14:11:39 Physician arrived 14:11:40 --------ALL STOP TIME OUT------ 14:11:41 Final Timeout: patient, procedure, and site verified with staff and physician. All members of the team are in agreement. 14:12:04 Sedation plan: Local Anesthetic Medication:Lidocaine 14:13:20 Procedure started. 14:13:26 Local anesthetic to Lumbar area with Lidocaine 1% by Kavon Rios MD.INITIAL ACCESS ONLY 14:13:37 STOPCOCK 3-Way Large Bore (P33819) opened to sterile field. 14:13:37 BAG, DRAINAGE EMPTY 600ML W/ADDI (NMV905) opened to sterile field. 14:13:38 Tegaderm 6 x 8 (1628) opened to sterile field. 14:14:12 LYNNETTE .035 15cm wire (G13417) opened to sterile field. 14:14:13 Abscession 8Fr drainage catheter ([id number]) opened to sterile field. 14:23:08 Procedure ended.(Physican Out) 14:23:27 Fluoroscopy time 01.20 minutes. 14:23:30 Fluoroscopy dose: 4 mGy 14:23:30 Flurop Dose total: 4 14:23:57 Contrast amount:Isovue 300 10ml. 14:23:59 Insertion/operative site no bleeding no hematoma. 14:24:05 Post-op/insertion site Right Lumbar area dressed using a 4 x 4 and Tegaderm. 14:25:22 Post procedure instruction explained to patient.Patient verbalizes understanding. 14:25:23 Procedure and supply charges have been captured, reviewed, submitted an d are correct. 14:25:27 Report given to [facility]. 14:25:32 Patient transfered to [facility] with Bed. Device Usage Item Name Manufacture Quantity Catalog Hospital Part Current Minima l Lot# / Number Charge Number Stock Stock Serial# Code Bag Decanter Microtek 1 2001S 010014 24912 [id number] 5 () Medical Inc. Sterile Cardinal 1 [id number] 035668 461164 5 Angiographic Health Pack STOPCOCK [facility] 1 F40689 827770 4087 898832 5 [id number] 3-Way Large Bore (G86147) BAG, [facility] 1 [id number] 986574 140527 354431 5 DRAINAGE EMPTY 600ML W/ADDI (EDW125) Tegaderm 6 x 3M 1 1628 442688 015696 5 8 (1628) LYNNETTE .035 [employer] 1 [id number] 311146 350687 5 [id number] 15cm wire (M07391) Abscession Angiodynamics 1 [id number] 919368 580697 502388 5 8Fr drainage catheter ([id number]) Signature Audit [place] Stage Time Signature Unsigned Intra-Procedure 02/19/2019 Edgar 2:25:55 PM Valencia RT (R) (CV) Signatures Monitor : Edgar Signature : Valencia RT Date : Time : [address] [place] [address]
[2019-02-18 18:57] VITALS: BP 92/65
--- NOTE | 2019-02-18 19:04 | NUR ---
REPORT GIVEN TO NEEMA DE LA O BY SBAR FORMAT
[2019-02-18 19:31] LABS: BASOPHILS 0.1 % (0-2); HEMATOCRIT 33.3 % (36.0-48.0); IMMATURE GRANULOCYTES 0.3 % (0-5); LYMPHOCYTES 4.3 % (15-50); MCH 30.2 pg (26.0-34.0); MCV 91.5 fL (80.0-100.0); MEAN PLATELET VOLUME 9.2 fL (7.4-10.4); MONOCYTES 9.4 % (2-11); NEUTROPHILS 78.9 % (40-80); PLATELET COUNT 223 10x3/uL (130-400); RBC 3.64 10x6/uL (4.00-5.40); WBC 11.6 10x3/uL (4.8-10.8)
[2019-02-18 19:42] LABS: ALBUMIN 3.1 g/dL (3.4-5.0); ANION GAP 9.9 mmol/L (8-16); BILIRUBIN - TOTAL 0.23 mg/dL (0.2-1.3); CALCIUM 8.5 mg/dL (8.5-10.1); CARBON DIOXIDE 27.5 mmol/L (21.0-32.0); CREATININE - SERUM 0.9 mg/dL (0.6-1.3); POTASSIUM - SERUM 3.4 mmol/L (3.5-5.1); PROTEIN - SERUM 7.5 g/dL (6.4-8.2)
[2019-02-18 19:55] VITALS: BP 102/57
[2019-02-18 19:58] LABS: APPEARANCE HAZY (CLEAR); BILIRUBIN NEGATIVE (NEGATIVE); COLOR STRAW (YELLOW); GLUCOSE NEGATIVE (NEGATIVE); KETONE NEGATIVE (NEGATIVE); NITRITE POSITIVE (NEGATIVE); PROTEIN TRACE mg/dL (NEGATIVE); SPECIFIC GRAVITY 1.005 (1.005-1.020); UROBILINOGEN NORMAL (NORMAL)
[2019-02-18 19:59] LABS: RED CELLS - URINE 0-5 /hpf (0-5); WHITE CELLS - URINE 25-50 /hpf (0-5)
[2019-02-18 20:00] LABS: BACTERIA MANY /hpf (NONE SEEN)
--- NOTE | 2019-02-18 20:03 | NUR ---
STAT LOCK WAS NOT ON THE SKIN, DEVICE WAS TAPPED DOWN AND AND TUBE SECURED WITH STERI STRIPS
[2019-02-18 21:04] VITALS: BP 112/64
--- NOTE | 2019-02-18 22:05 | NUR ---
ADMIT FROM ER VIA WC...BED LOW WITH SRX2 HOB UP 30 DEGREES CALL LIGHT IN PLACE DENIES PAIN AT THIS TIME STATES MSO4 WORKED. LCTA BOWEL SOUNDS X4 SKIN WARM AND DRY NO BREAKDOWN OSTOMY IS ON RT SIDE.
[2019-02-19] VITALS (12 sets, daily range): BP systolic 90–113; BP diastolic 44–70; Ht 160 cm; Wt 45.1 kg
--- NOTE | 2019-02-19 | NUR ---
PT ADMIT ASSESSMENT COMPLETE. PT ASLEEP WHEN WALKING INTO ROOM, AROUSES TO VERBAL STIMULI. PT IS AAO, UP AD BLAKE. HAS A RIGHT NEPHROSTOMY AND STATES STILL PRODUCES URINE. RIGHT FOREARM 20G PATENT. CDI PT DENIES ANY NEEDS. NO S/S OF DISTRESS. PT WILL CALL FOR ASSIST WHEN NEEDED. WILL CPOC
--- NOTE | 2019-02-19 07:28 | NUR ---
PT AWAKE AND ORIENTED. REQUESTS TO KNOW WHEN DRTorie WILL BE IN AND JUICE. ANSWERS PROVIDED TO BEST OF MY KNOWLEDGE. CL IN REACH. SRX2.
--- NOTE | 2019-02-19 10:11 | NUR ---
I have reviewed this patient and I concur with the Shift Assessment completed by the Licensed Practical Nurse today this shift.
--- NOTE | 2019-02-19 13:55 | NUR ---
pt taken for procedure.
--- NOTE | 2019-02-19 14:56 | NUR ---
PT BACK FROM OR.
--- NOTE | 2019-02-19 18:03 | NUR ---
PT TO BE KEPT. NEW BAG SITE C/D/I. NO DRAINAGE OF RIGHT NOW. DOES NOT WANT TO BE HERE RIGHT NOW. CL IN REACH. SRX2. NO CONCERNS VOICED AT THIS TIME.
--- NOTE | 2019-02-19 19:33 | NUR ---
EVENING ROUNDS COMPLETED. REPORT RECEIVED. PT SITTING UP IN BED WITH EYES OPEN, RR EVEN AND UNLABORED. BED IN LOW POSITION. NO S/S OF DISTRESS. INTRODUCED SELF TO PT. PT DENIES FURTHER NEEDS AT THIS TIME. CALL LIGHT IN REACH. WILL CTM.
[2019-02-20 00:16] VITALS: BP 104/64
--- NOTE | 2019-02-20 02:36 | NUR ---
I have reviewed this patient and I concur with the Shift Assessment completed by the Licensed Practical Nurse today this shift.
[2019-02-20 04:25] VITALS: BP 93/56
[2019-02-20 04:59] LABS: BASOPHILS 0.1 % (0-2); EOSINOPHILS 7.2 % (0-7); HEMATOCRIT 28.2 % (36.0-48.0); IMMATURE GRANULOCYTES 0.3 % (0-5); LYMPHOCYTES 10.8 % (15-50); MCH 29.4 pg (26.0-34.0); MCHC 31.9 g/dL (31.0-37.0); MCV 92.2 fL (80.0-100.0); MONOCYTES 12.1 % (2-11); NEUTROPHILS 69.5 % (40-80); PLATELET COUNT 219 10x3/uL (130-400); RBC 3.06 10x6/uL (4.00-5.40)
[2019-02-20 05:07] LABS: WBC 7.5 10x3/uL (4.8-10.8)
[2019-02-20 05:36] LABS: ANION GAP 12.4 mmol/L (8-16); BILIRUBIN - TOTAL 0.17 mg/dL (0.2-1.3); CALCIUM 7.9 mg/dL (8.5-10.1); MAGNESIUM - SERUM 1.6 mg/dL (1.8-2.4); POTASSIUM - SERUM 3.4 mmol/L (3.5-5.1); PROTEIN - SERUM 6.3 g/dL (6.4-8.2)
[2019-02-20 05:38] LABS: ALBUMIN 2.3 g/dL (3.4-5.0)
[2019-02-20 07:49] VITALS: BP 94/66
[2019-02-20 12:16] VITALS: BP 101/69
--- NOTE | 2019-02-20 14:09 | NUR ---
I have reviewed this patient and I concur with the Shift Assessment completed by the Licensed Practical Nurse today this shift.
[2019-02-20 14:21] LABS: % SATURATION 7 % (15-55); IRON 18 ug/dl (35-150); TOTAL IRON BIND CAPACITY 238 ug/dl (260-445); UNSAT IRON BIND CAPACITY 220 ug/dl (150-375)
[2019-02-20 15:38] VITALS: BP 99/64
--- NOTE | 2019-02-20 17:04 | NUR ---
WITHOUT CHANGES OR DISTRESS NOTED AT THIS TIME. DENIES NEEDS
--- NOTE | 2019-02-20 20:31 | NUR ---
PT RESTING IN BED RR EVEN AND UNLABORED. PT TEMP 102.0. PRN TYLANOL GIVEN. PT COMPLAINS OF PAIN 8/10 IN LOWER BACK. PRN PAIN MEDS GIVEN. SEE MAR. PT DENIES ANY FURTHER NEEDS AT THIS TIME. BED LOW CALL LIGHT WITHIN REACH. WILL CONTINUE TO MONITOR.
--- NOTE | 2019-02-20 22:42 | NUR ---
PT TEMP 98.6 AFTER RECHECK. WILL CONTINUE TO MONITOR.
[2019-02-21] VITALS: BP 95/52
--- NOTE | 2019-02-21 02:04 | NUR ---
I have reviewed this patient and I concur with the Shift Assessment completed by the Licensed Practical Nurse today this shift.
--- NOTE | 2019-02-21 03:43 | NUR ---
PT RESTING COMFORTABLY. RR EVEN AND UNLABORED. BED LOW CALL LIGHT WITHIN REACH. WILL CONTINUE TO MONITOR.
[2019-02-21 04:46] LABS: BASOPHILS 0 % (0-2); EOSINOPHILS 9.4 % (0-7); HEMATOCRIT 28.6 % (36.0-48.0); HEMOGLOBIN 9.1 g/dL (12-16); IMMATURE GRANULOCYTES 0.3 % (0-5); LYMPHOCYTES 12.8 % (15-50); MCH 29.2 pg (26.0-34.0); MCHC 31.8 g/dL (31.0-37.0); MCV 91.7 fL (80.0-100.0); MEAN PLATELET VOLUME 8.7 fL (7.4-10.4); NEUTROPHILS 63.5 % (40-80); PLATELET COUNT 202 10x3/uL (130-400); RBC 3.12 10x6/uL (4.00-5.40); RDW 14.7 % (11.5-14.5); WBC 6.7 10x3/uL (4.8-10.8)
--- NOTE | 2019-02-21 05:00 | NUR ---
PT COMPLAINS OF 9/10 PAIN IN BACK AR UROSTOMY SITE. PRN PAIN MED GIVEN. SEE MAR. PT STATES, "THE PAIN FEELS DIFFRENT. I HAVN'T FELT THAT BEFORE." WILL PASS ON IN REPORT. BED LOW CALL LIGHT WITHIN REACH. WILL CONTINUE TO MONITOR.
[2019-02-21 05:22] LABS: ALBUMIN 2.3 g/dL (3.4-5.0); ANION GAP 9.7 mmol/L (8-16); BILIRUBIN - TOTAL 0.18 mg/dL (0.2-1.3); CALCIUM 8.3 mg/dL (8.5-10.1); CARBON DIOXIDE 26.2 mmol/L (21.0-32.0); CREATININE - SERUM 0.9 mg/dL (0.6-1.3); MAGNESIUM - SERUM 1.6 mg/dL (1.8-2.4); POTASSIUM - SERUM 3.9 mmol/L (3.5-5.1); PROTEIN - SERUM 6.4 g/dL (6.4-8.2)
--- NOTE | 2019-02-21 07:42 | NUR ---
IN CONTACT ISOLATION. ON ROOM AIR. RIGHT FA SEEN WITH NS INFUSING AT 100 CC/HR. NEEDING STOOL SAMPLE. UP AD BLAKE. DENEIS NEEDS AT THIS TIME. PATIENT IS WANTING TO GO OUTSIDE FOR AIR. SALINE LOCK AT THIS TIME.
--- NOTE | 2019-02-21 08:05 | NUR ---
DRESSING SEEN TO RIGHT FLANK AREA, C/D/I. PATIENT REPORTS THAT THE STENT GETS REPLACED EVERY MONTH AND THAT SHE IS HAVING BLADDER REPAIR IN [place] NEXT MONTH.
[2019-02-21 08:20] VITALS: BP 95/55
--- NOTE | 2019-02-21 09:52 | NUR ---
IV TO RIGHT FA IS "LEAKING" PER PATIENT. I DO NOT SEE ANY LEAKING BUT SHE IS ADAMENT THAT I TAKE IT OUT SHE STATES SHE IS GOING HOME THIS AFTERNOON. CATH TIP INTACT. PATIENT TO REFUSE ME TO RE-SITE HER.
--- NOTE | 2019-02-21 10:04 | NUR ---
AMBULATING IN HALLWAY AT THIS TIME.
[2019-02-21] MEDS ORDERED: LEVAQUIN750 MG PO (11:45)
[2019-02-21] MEDS ORDERED: VIBRAMYCIN 100100 MG PO (11:45)
[2019-02-21 12:10] VITALS: BP 101/54
--- NOTE | 2019-02-21 13:15 | NUR ---
DRESSING TO RIGHT FLANK CHANGED. PIGTAIL IS SEEN INSERTED TO FLANK AREA, STITCHES INTACT. NO REDNESS SEEN. COVERED WITH CLEAN 2 X 2 AND LARGE OPSITE. VERBAL AND WRITTEN DISCHARGE INSTRCUTIONS GIVEN TO PATIENT. AWAITING RIDE FOR DISCHARGE.
--- NOTE | 2019-02-21 13:40 | NUR ---
DISCHARGED HOME VIA WHEELCHAIR.
--- NOTE | 2019-02-22 09:41 | MORECARE ---
CASE MANAGEMENT DISCHARGE SUMMARY PATIENT: JOSE VALADEZ UNIT: [id number] ADM DATE: 02/18/19 AGE: 44 : [birth year] SEX: F ROOM/BED: D.2134 AUTHOR: MARTIN MCCORMICK PHYSICIAN: REFERRING PHYSICIAN: NARENDRA RAMON MD DATE OF SERVICE: 02/22/19 Discharge Plan Patient Name: JOSE VALADEZ [facility] [facility] 1975 Planned Disposition: Home Anticipated Discharge Date: 02/21/19 Discharge Date: 02/21/2019 Expected LOS: 3 Initial Reviewer: [email or web address] Initial Review Date: 02/22/2019 Generated: 02/22/19 10:41 am Patient Name: JOSE VALADEZ Page 73758 at 0941 All edits/amendments must be made on the electronic document DICTATION DATE: 02/22/19939 MORTISING MACHINE OPERATOR: MISTY 02/22/19939 RPT#: [id number] DC DATE:02/21/19 STATUS: DIS IN [facility] [address] [place] [place] [address] END OF REPORT
[2019-02-23 09:17] LABS: FOLATE (FOLIC ACID) - SERUM 6.1 ng/mL (>3.0)
== END 2019-02-21 13:41 | disposition home or self-care (01) | DRG 699 ==
LOC: D.ER 17:33 → D.M2 21:11
PROVIDERS: Emergency Medicine; Radiology Diagnostic Radiology; ADMIT Family Medicine; ATTEND Family Medicine
PROC: 0T25X0Z Change Drainage Device in Kidney, External Approach (ICD-10-PCS; principal; 2019-02-19 14:00)
DX: T83.84XA Pain due to genitourinary prosthetic devices, implants and grafts, initial encounter (principal); N12 Tubulo-interstitial nephritis, not specified as acute or chronic; Y83.8 Other surgical procedures as the cause of abnormal reaction of the patient, or of later complication, without mention of misadventure at the time of the procedure; F32.9 Major depressive disorder, single episode, unspecified; F41.9 Anxiety disorder, unspecified; F17.210 Nicotine dependence, cigarettes, uncomplicated; D64.9 Anemia, unspecified

== ENCOUNTER → 2019-03-08 13:26 | Outpatient (CLI) | payer SELFPAY ==
[2019-02-19 13:35] VITALS: BMI 18.0
[~2019-03-08 13:26] MED LIST changes: +LEVAQUIN750 MG PO; +VIBRAMYCIN 100100 MG PO
== END | disposition home or self-care (01) ==
LOC: D.LABREF 13:26
PROVIDERS: ATTEND Urology
DX: N39.0 Urinary tract infection, site not specified (principal)

== ENCOUNTER 2019-04-13 09:33 | Outpatient (CLI) | payer SELFPAY ==
[~2019-04-13] VITALS: Ht 160 cm; Wt 43.2 kg
--- NOTE | ~2019-04-13 | HEMODYNAMI ---
PATIENT:JOSE VALADEZ MEDICAL RECORD: [id number] : 77 LOCATION:D. ADMISSION DATE: 04/13/19 Generatedon:04/13/201913:31 Patient name: JOSE VALADEZ Patient #: [id number] SSN: : 1975 Date of study: 04/13/2019 Page: Of Hemodynamic Procedure Report Patient Data Patient Demographics Procedure consent was obtained First Name: JOSE Gender: Female Last Name: ALLYSON : 1975 Middle Initial: D Age: 44 year(s) Patient #: [id number] Race: Unknown Additional ID: [id number] Contact details [address]: [address] [place] [address] [place] State: [place] City: [place] Zip code: [address] Past Medical History Allergies: No known allergies Admission Admission Data Admission Date: 04/13/2019 Admission Time: 9:33 Procedure Procedure Types Cath Procedure Peripheral Cath Diagnostic Procedure Nephro Procedure Description Procedure Date Procedure Date: 04/13/2019 Procedure Start Time: 13:17 Procedure Staff Name Function Nadira Pablo MD Performing Physician Edgar Birmingham RT Monitor MIRELA NATHAN RT Scrub Berta Finn RN Nurse Procedure Data Cath Procedure Fluoroscopy Diagnostic fluoroscopy Total fluoroscopy Time: 1.1 time: 1.1 min min Diagnostic fluoroscopy Total fluoroscopy dose: 3 dose: 3 mGy mGy Contrast Material Contrast Material Type Amount (ml) Isovue 300 10 Procedure Medications Medication Administration Route Dosage Heparin Flush Bag added to field 1 bags (1000units/500ml NS) Lidocaine 1% added to field 20 Hemodynamics Rest Heart Rate: 81 (bpm) Snapshots Pre Cath Intra NCS Post Cath Vital Signs Time Heart Resp SPO2 etCO2 NIBP Rhythm Pain Sedation Rate (ipm) (%) (mmHg) (mmHg) Status Level (bpm) 13:14:34 73 20 28.4 99/64(81) NSR 0 (11) 10(A) , No pain 13:18:35 74 14 98 29.1 99/64(77) NSR 0 (11) 10(A) , No pain 13:22:37 74 19 27.6 92/55(73) NSR 0 (11) 10(A) , No pain 13:26:34 78 18 100 28.3 97/61(86) NSR 0 (11) 10(A) , No pain 13:30:30 89 16 100 23.1 106/73(87) NSR 0 (11) 10(A) , No pain Medications Time Medication Route Dose Verified Delivered Reason Notes Effec tiveness by by 13:14:38 Heparin Flush added 1 M J Long M J Long used for Bag to bags MD DUFF procedure (1000units/500ml field NS) 13:15:06 Lidocaine 1% added 20ml M J Long M J Long used for to vial MD DUFF procedure field Procedure Log Time Note 12:59:21 Edgar Birmingham RT (R) (CV) sent for patient. Start room use. 12:59:30 Time tracking: Regular hours (M-F 7:00 - 5:00) 12:59:36 Plan of Care:Hemodynamics will remain stable., Cardiac rhythm will remain stable., Comfort level will be maintained., Respiratory function will remain adequate., Patient/ family verbilizes understanding of procedure., Procedure tolerated without complication., Recovers from procedure without complications.. 12:59:44 Patient received from Outpatients to IR Alert and oriented. Tansferred to table in Supine position. 12:59:48 Correct patient and procedure confirmed by team. 12:59:52 Signed procedure consent form obtained from patient. 12:59:53 ECG and BP/O2 sat monitors applied to patient. 12:59:54 Full Disclosure recording started 12:59:55 - 12:59:59 H&P Date Dictated: 04/13/2019 H&P Addendum completed by physician on day of procedure. (MUST COMPLETE FOR ALL OUTPATIENTS). 13:00:04 Pre-procedure instructions explained to patient. 13:00:04 Pre-op teaching completed and patient verbalized understanding. 13:00:06 Family in waiting room. 13:00:08 Patient NPO since Midnight. 13:00:27 Patient allergic to No known allergies 13:00:34 Is the patient allergic to Iodine/contrast media? No. 13:00:36 Is patient on blood thinner?No 13:00:41 Patient diabetic? No. 13:00:42 - 13:00:53 ----Pre-sedation anethsthesia assessment.---- 13:00:56 Previous problem with sedation/anesthesia? No ? 13:00:58 Snore? Yes 13:01:02 Sleep apnea? No 13:01:03 Deviated septum? No 13:01:04 Opens mouth fully? Yes 13:01:06 Sticks out tongue? Yes 13:01:08 Airway obstruction? No ? 13:01:11 Dentures? No ? 13:01:14 Use device set IR Diagnostic 13:01:16 Bag Decanter (2002S) opened to sterile field. 13:01:17 Sterile Angiographic Pack opened to sterile field. 13:01:27 Patient pain scale 0/10 no. 13:06:01 IV patent on arrival in right hand with 0.45%NaCl at KVO. 13:06:03 Sharps counted by scrub and verified by R.N. 13:06:11 Right Lumbar was prepped with chlora-prep and draped in sterile fashion . 13:06:12 Alarms reviewed by R. N. 13:13:36 Vital chart was started 13:13:37 Baseline sample Acquired. 13:14:38 Heparin Flush Bag (1000units/500ml NS) 1 bags added to field was administered by Nadira Pablo MD; used for procedure; 13:15:06 Lidocaine 1% 20ml vial added to field was administered by Nadira Pablo MD; used for procedure; 13:16:28 Physician arrived 13:16:28 --------ALL STOP TIME OUT------ 13:16:29 Final Timeout: patient, procedure, and site verified with staff and physician. All members of the team are in agreement. 13:16:34 Lumbar site verified by team. 13:16:39 Maximum allowable Isovue 300 dose 300ml. Physician notified. (300ml for normal creatinines. For patients with creatinine of 1.7 or higher multiply weight(kg) x 5 divided by creatinine.) 13:16:42 Fire Safety Assessment: A--An alcohol-based skin anteseptic being used preoperatively., C--Open oxygen or nitrous oxide is being used. 13:16:46 Sedation plan: IV Moderate Sedation Medication:Versed, Fentanyl 13:16:57 Procedure started. 13:17:02 Local anesthetic to Lumbar area with Lidocaine 1% by Nadira Pablo MD.INITIAL ACCESS ONLY 13:17:47 Abscession 10 FR drainage catheter ([id number]) opened to sterile field. 13:17:48 STOPCOCK 3-Way Large Bore ([id number]) opened to sterile field. 13:17:48 BAG, DRAINAGE EMPTY 600ML W/ADDI (NGX889) opened to sterile field. 13:17:48 LYNNETTE .035 15cm wire (Y29432) opened to sterile field. 13:21:08 GLIDE WIRE ANGLE 180cm (XP5112) opened to sterile field. 13:23:57 SUTURE ETHILON 2-0 BLK MONO FS opened to sterile field. 13:28:53 Procedure ended.(Physican Out) 13:29:19 Fluoroscopy time 01.10 minutes. 13:29:22 Fluoroscopy dose: 3 mGy 13:29:22 Flurop Dose total: 3 13:29:27 Contrast amount:Isovue 300 10ml. 13:29:30 Sharps counted by scrub and verified by R.N. 13:29:32 Insertion/operative site no bleeding no hematoma. 13:29:41 Post-op/insertion site Right Lumbar area dressed using a 4 x 4 and Tegaderm. 13:29:50 Post Lumbar area:stable 13:29:54 Post procedure instruction explained to patient.Patient verbalizes understanding. 13:30:33 Procedure and supply charges have been captured, reviewed, submitted an d are correct. 13:30:35 Report given to Outpatients. 13:30:38 Patient transfered to Outpatients with Stretcher. 13:31:02 Vital chart was stopped Device Usage Item Name Manufacture Quantity Catalog Hospital Part Current Minima l Lot# / Number Charge Number Stock Stock Serial# Code Bag Decanter Microtek 1 [id number] 5 () Medical Inc. Sterile Cardinal 1 [id number] [id number] 639822 5 Angiographic Health Pack Abscession Angiodynamics 1 [id number] 664224 957081 150079 5 10 FR drainage catheter ([id number]) STOPCOCK [employer] 1 [id number] 576999 8309 915729 5 [id number] 3-Way Large Bore (Q58400) BAG, [facility] Medical 1 [id number] 666603 173223 686820 5 DRAINAGE EMPTY 600ML W/ADDI (LII121) LYNNETTE .035 [employer] 1 M99084 629315 678481 5 7010101 15cm wire (C98101) GLIDE WIRE Terumo 1 LM1437 112945 467554 005678 5 ANGLE 180cm (HG7961) SUTURE Ethicon 1 664H 699948 057088 5 ETHILON 2-0 BLK MONO FS Signature Audit [place] Stage Time Signature Unsigned Intra-Procedure 04/13/2019 Edgar 1:30:58 PM Shuffield RT (R) (CV) Signatures Monitor : Edgar Signature : Samanield RT Date : Time : [address] [place] [address]
[2019-04-13 10:17] LABS: HEMATOCRIT 35.7 % (36.0-48.0); HEMOGLOBIN 12.1 g/dL (12-16); LYMPHOCYTES 12.8 % (15-50); MCHC 33.9 g/dL (31.0-37.0); MCV 91.5 fL (80.0-100.0); MEAN PLATELET VOLUME 8.4 fL (7.4-10.4); NEUTROPHILS 75.3 % (40-80); RDW 14.8 % (11.5-14.5); WBC 6.8 10x3/uL (4.8-10.8)
[2019-04-13 10:18] LABS: PLATELET COUNT 268 10x3/uL (130-400)
[2019-04-13 10:24] LABS: APTT 26.6 SECONDS (22.8-39.4); INR 1.08 (0.85-1.17); PROTIME 13.5 SECONDS (11.6-15.0)
[2019-04-13 10:25] LABS: CALC OSMOLALITY 281 mosm/kg (275-300); CARBON DIOXIDE 27.1 mmol/L (21.0-32.0); CHLORIDE - SERUM 108 mmol/L (98-107); CREATININE - SERUM 0.8 mg/dL (0.6-1.3); GLUCOSE 61 mg/dL (74-106); POTASSIUM - SERUM 3.8 mmol/L (3.5-5.1); SODIUM 142 mmol/L (136-145); UREA NITROGEN 14 mg/dL (7-18); eGFR NON AFRICAN AMERICAN 83 mL/min (90-120)
[2019-04-13] MEDS ORDERED: ATIVAN1 MG PO (10:33)
[2019-04-13] MEDS ORDERED: ALBUTEROL SULF8.5 GM INH (10:33)
[2019-04-13 10:43] VITALS: BP 108/66; Ht 160 cm; Wt 43.2 kg
--- NOTE | 2019-04-13 11:03 | NUR ---
PAIN MEDICATION REQUESTED BY PT FOR CHRONIC BACK PAIN, IR DECLINED.
--- NOTE | 2019-04-13 12:51 | NUR ---
FSBS 108
--- NOTE | 2019-04-13 14:00 | NUR ---
PT VOIDED. DC INSTRUCTIONS GIVEN TO PT/FAMILY. STATE UNDERSTANDING. DC'D IV CATH FULLY INTACT.
--- NOTE | 2019-04-13 14:02 | NUR ---
PT LEFT UNIT AMBULATING AT 1403
== END 2019-04-13 14:03 | disposition home or self-care (01) ==
LOC: D.SP 09:33
PROVIDERS: Radiology Vascular & Interventional Radiology; ATTEND Urology
DX: N99.528 Other complication of incontinent external stoma of urinary tract (principal); Z01.812 Encounter for preprocedural laboratory examination

== ENCOUNTER 2019-05-21 11:46 | Emergency (ER) | payer MEDICAID ==
--- NOTE | ~2019-05-21 | HEMODYNAMI ---
PATIENT:JOSE VALADEZ MEDICAL RECORD: [id number] : 77 LOCATION:D. ADMISSION DATE: 05/21/19 Generatedon:05/21/201914:23 Patient name: JOSE VALADEZ Patient #: [id number] SSN: : 1975 Date of study: 05/21/2019 Page: Of Hemodynamic Procedure Report Patient Data Patient Demographics Procedure consent was obtained First Name: JOSE Gender: Female Last Name: ALLYSON : 1975 [facility] Initial: D Age: 44 year(s) Patient #: [id number] Race: Unknown Additional ID: [id number] Contact details Address: [address] [place] [address] [place] State: [place] City: [place] Zip code: [address] Past Medical History Allergies: No known allergies Admission Admission Data Admission Date: 05/21/2019 Admission Time: 11:46 Procedure Procedure Types Cath Procedure Peripheral Cath Diagnostic Procedure Nephro Nephrostogram Thru Existing Procedure Description Procedure Date Procedure Date: 05/21/2019 Procedure Start Time: 14:08 Procedure Staff Name Function Edgar Birmingham RT Monitor Ashvin Mcgregor MD Performing Physician Parul Mendez RN Nurse Berta Finn RN Nurse MIRELA NATHAN RT Scrub Procedure Data Cath Procedure Fluoroscopy Diagnostic fluoroscopy Total fluoroscopy Time: 1 time: 1 min min Diagnostic fluoroscopy Total fluoroscopy dose: 3 dose: 3 mGy mGy Contrast Material Contrast Material Type Amount (ml) Isovue 300 5 Hemodynamics Rest Pre Cath Intra NCS Post Cath Procedure Log Time Note 13:41:18 Edgar Birmingham RT (R) (CV) sent for patient. Start room use. 13:41:26 Time tracking: Regular hours (M-F 7:00 - 5:00) 13:41:40 Plan of Care:Hemodynamics will remain stable., Cardiac rhythm will remain stable., Comfort level will be maintained., Respiratory function will remain adequate., Patient/ family verbilizes understanding of procedure., Procedure tolerated without complication., Recovers from procedure without complications.. 13:41:55 Patient received from ED to IR Alert and oriented. Tansferred to table in Prone position. 13:41:57 Correct patient and procedure confirmed by team. 13:41:58 Signed procedure consent form obtained from patient. 13:41:59 Full Disclosure recording started 13:42:00 - 13:42:12 H&P Date Dictated: 05/21/2019 Within 30 days and on chart.. 13:42:13 Pre-procedure instructions explained to patient. 13:42:14 Pre-op teaching completed and patient verbalized understanding. 13:42:15 Family in waiting room. 13:42:26 Patient NPO since Breakfast. 13:42:30 Is the patient allergic to Iodine/contrast media? No. 13:42:32 Is patient on blood thinner?No 13:42:37 Patient diabetic? No. 13:42:38 - 13:42:39 ----Pre-sedation anethsthesia assessment.---- 13:42:42 Previous problem with sedation/anesthesia? No ? 13:42:43 Snore? No 13:42:45 Sleep apnea? No 13:42:46 Deviated septum? No 13:42:51 Opens mouth fully? Yes 13:42:52 Sticks out tongue? Yes 13:42:54 Airway obstruction? No ? 13:43:02 Use device set IR Diagnostic 13:43:04 Sterile Angiographic Pack opened to sterile field. 13:43:04 Bag Decanter () opened to sterile field. 14:06:30 Sharps counted by scrub and verified by R.NTorie 14:06:31 Alarms reviewed by Sharan Yeh. 14:07:42 Physician arrived 14:07:43 Final Timeout: patient, procedure, and site verified with staff and physician. All members of the team are in agreement. 14:07:43 --------ALL STOP TIME OUT------ 14:07:58 Right abdomen site verified by team. 14:08:33 Lumbar site verified by team. 14:08:37 Fire Safety Assessment: A--An alcohol-based skin anteseptic being used preoperatively., C--Open oxygen or nitrous oxide is being used. 14:08:41 Sedation plan: IV Moderate Sedation Medication:Lidocaine 14:08:53 Procedure started. 14:08:59 Local anesthetic to Lumbar area with Lidocaine 1% by Ashvin Mcgregor MD.INITIAL ACCESS ONLY 14:10:21 STOPCOCK 3-Way Large Bore ([id number]) opened to sterile field. 14:10:22 Abscession 10 FR drainage catheter ([id number]) opened to sterile field. 14:11:12 ROADRUNNER .035 145 glide wire (B07183) opened to sterile field. 14:11:12 BAG, DRAINAGE EMPTY 600ML W/ADDI (QON016) opened to sterile field. 14:13:36 SUTURE ETHILON 2-0 BLK MONO FS opened to sterile field. 14:15:31 Tegaderm 6 x 8 (1628) opened to sterile field. 14:15:40 Procedure ended.(Physican Out) 14:15:52 Fluoroscopy time 01.00 minutes. 14:15:54 Fluoroscopy dose: 3 mGy 14:15:54 Flurop Dose total: 3 14:15:56 Sharps counted by scrub and verified by R.N. 14:15:58 Insertion/operative site no bleeding no hematoma. 14:16:03 Post-op/insertion site Right Lumbar area dressed using a 4 x 4 and Tegaderm. 14:16:22 Post Lumbar area:stable 14:17:01 Post procedure instruction explained to patient.Patient verbalizes understanding. 14:17:02 Procedure and supply charges have been captured, reviewed, submitted an d are correct. 14:17:05 Report given to ED. 14:17:10 Patient transfered to ED with Stretcher. 14:17:30 Full Disclosure recording stopped 14:23:10 Contrast amount:Isovue 300 5ml. Device Usage Item Name Manufacture Quantity Catalog Hospital Part Current Minima l Lot# / Number Charge Number Stock Stock Serial# Code Bag Decanter Microtek 1 [id number] [id number] 5 () Medical Inc. Sterile Cardinal 1 [id number] 655113 248084 5 Angiographic Health Pack [facility] 1 R65259 746334 8098 078320 5 [id number] 3-Way Large Bore (X28181) Abscession Angiodynamics 1 [id number] 836478 807495 228313 5 10 FR drainage catheter ([id number]) BAG, [facility] Medical 1 [id number] 690522 776424 239744 5 DRAINAGE EMPTY 600ML W/ADDI (VMK207) ROADRUNNER [facility] 1 S49445 120251 591270 519858 5 8769150 .035 145 glide wire (Y72329) SUTURE Ethicon 1 664H 441510 186233 5 ETHILON 2-0 BLK MONO FS Tegaderm 6 x 3M 1 1628 316982 933102 5 8 (1808) Signature Audit [place] Stage Time Signature Unsigned Intra-Procedure 05/21/2019 Edgar Birmingham RT 2:17:24 PM Samanield RT (R) (CV) 05/21/2019 (R) (CV) 2:23:00 PM Intra-Procedure 05/21/2019 Edgar 2:23:23 PM Samanield RT (R) (CV) Signatures Monitor : Edgar Signature : Valencia RT Date : Time : [facility] [address] [place] [address]
[~2019-05-21 11:46] MED LIST changes: +ALBUTEROL SULF8.5 GM INH
[2019-05-21 11:57] VITALS: BMI 17.0
[2019-05-21] MEDS ORDERED: CIPRO500 MG PO (11:59)
[2019-05-21] MEDS ORDERED: ULTRAM50 MG PO (14:27)
[2019-05-21 14:40] VITALS: BP 122/45
== END 2019-05-21 14:40 | disposition home or self-care (01) ==
LOC: D.ER 11:46
DX: Z43.6 Encounter for attention to other artificial openings of urinary tract (principal); J44.9 Chronic obstructive pulmonary disease, unspecified

== ENCOUNTER 2019-06-07 15:36 | Inpatient (IN) | payer MEDICAID ==
[~2019-06-07] VITALS: Ht 160 cm; Wt 42.6 kg
--- NOTE | ~2019-06-07 | HEMODYNAMI ---
PATIENT:JOSE VALADEZ MEDICAL RECORD: [id number] : 77 [facility] ADMISSION DATE: 06/08/19 Generatedon:06/10/201910:44 Patient name: JOSE VALADEZ Patient #: [id number] SSN: : 1975 Date of study: 06/10/2019 Page: Of Hemodynamic Procedure Report Patient Data Patient Demographics Procedure consent was obtained First Name: JOSE Gender: Female Last Name: ALLYSON : 1975 Middle Initial: D Age: 44 year(s) Patient #: [id number] Race: Unknown Additional ID: [id number] Contact details Address: [address] [place] [address] State: [place] City: [place] Zip code: [address] Past Medical History Allergies: No known allergies Admission Admission Data Admission Date: 06/08/2019 Admission Time: 15:52 Room #: D.2106 Procedure Procedure Types Cath Procedure Peripheral Cath Diagnostic Procedure Nephro Nephrostogram Thru Existing Procedure Description Procedure Date Procedure Date: 06/10/2019 Procedure Start Time: 10:36 Procedure Staff Name Function Kavon Rios MD Performing Physician Parul Mendez RN Nurse MIRELA NATHAN RT Scrub Edgar Birmingham RT Monitor Procedure Data Cath Procedure Fluoroscopy Diagnostic fluoroscopy Total fluoroscopy Time: 0.5 time: 0.5 min min Diagnostic fluoroscopy Total fluoroscopy dose: 4 dose: 4 mGy mGy Contrast Material Contrast Material Type Amount (ml) Isovue 300 5 Hemodynamics Rest Pre Cath Intra NCS Post Cath Procedure Log Time Note 10:20:39 Parul Mendez RN sent for patient. Start room use. 10:20:45 Time tracking: Regular hours (M-F 7:00 - 5:00) 10:21:01 Use device set IR Diagnostic 10:21:04 Sterile Angiographic Pack opened to sterile field. 10:21:05 Bag Decanter (2002S) opened to sterile field. 10:21:19 Patient received from Med II to IR Alert and oriented. Tansferred to table in Prone position. 10:21:22 Signed procedure consent form obtained from patient. 10:21:23 Correct patient and procedure confirmed by team. 10:21:28 Full Disclosure recording started 10::29 - 10::31 Pre-op teaching completed and patient verbalized understanding. 10:21:31 Pre-procedure instructions explained to patient. 10:21:43 Patient allergic to No known allergies 10:21:48 Is the patient allergic to Iodine/contrast media? No. 10:21:50 Is patient on blood thinner?No 10:21:52 Patient diabetic? No. 10:22:22 Right Renal was prepped with chlora-prep and draped in sterile fashion. 10:22:23 Alarms reviewed by R. N. 10:22:24 Alarms reviewed by R. N. 10:22:25 Sharps counted by scrub and verified by R.N. 10:35:34 Physician arrived 10:35:35 Final Timeout: patient, procedure, and site verified with staff and physician. All members of the team are in agreement. 10:35:35 --------ALL STOP TIME OUT------ 10:35:41 Lumbar site verified by team. 10:35:51 Sedation plan: IV Moderate Sedation Medication:Lidocaine 10:36:19 Procedure started. 10:37:32 BAG, DRAINAGE EMPTY 600ML W/ADDI (WUU271) opened to sterile field. 10:40:57 Procedure ended.(Physican Out) 10:41:54 Fluoroscopy time 00.50 minutes. 10:42:00 Fluoroscopy dose: 4 mGy 10:42:00 Flurop Dose total: 4 10:42:07 Contrast amount:Isovue 300 5ml. 10:42:10 Insertion/operative site no bleeding no hematoma. 10:42:16 Post-op/insertion site Right Lumbar area dressed using a 4 x 4 and Tegaderm. 10:42:18 Procedure and supply charges have been captured, reviewed, submitted an d are correct. 10:42:54 Report given to Med II. 10:43:07 Patient transfered to Med II with Bed. 10:43:31 Full Disclosure recording stopped Device Usage Item Name Manufacture Quantity Catalog Hospital Part Current Minimal Lot# / Number Charge Number Stock Stock Serial# Code Sterile Cardinal 1 [id number] [id number] 5 Angiographic Health Pack Bag Decanter Microtek 1 2001S [id number] 70120 [id number] 5 (2001S) Medical Inc. BAG, [employer] 1 [id number] 622651 509918 621014 5 DRAINAGE Medical EMPTY 600ML W/ADDI (YHY588) Signature Audit [place] Stage Time Signature Unsigned Intra-Procedure 06/10/2019 Edgar 10:44:30 AM Valencia RT (R) (CV) Signatures Monitor : Edgar Signature : Valencia RT Date : Time : [address] [address]
[~2019-06-07 15:36] MED LIST changes: +CIPRO500 MG PO; +ULTRAM50 MG PO
--- NOTE | 2019-06-07 18:14 | NUR ---
UNABLE TO COLLECT URINE D/T PT'S CC OF "BLOCKED UROSTOMY." TREATING PROVIDER AWARE.
[2019-06-07 18:27] LABS: BASOPHILS 0.1 % (0-2); EOSINOPHILS 10.4 % (0-7); HEMATOCRIT 34.6 % (36.0-48.0); HEMOGLOBIN 11.7 g/dL (12-16); IMMATURE GRANULOCYTES 0.3 % (0-5); LYMPHOCYTES 13.4 % (15-50); MCH 31.1 pg (26.0-34.0); MCHC 33.8 g/dL (31.0-37.0); MEAN PLATELET VOLUME 9.1 fL (7.4-10.4); MONOCYTES 13.5 % (2-11); NEUTROPHILS 62.3 % (40-80); RBC 3.76 10x6/uL (4.00-5.40); RDW 15.5 % (11.5-14.5); WBC 7.3 10x3/uL (4.8-10.8)
[2019-06-07 18:30] LABS: PLATELET COUNT 202 10x3/uL (130-400)
[2019-06-07 18:48] LABS: ALBUMIN 3.4 g/dL (3.4-5.0); ALKALINE PHOSPHATASE 117 U/L (46-116); ALT (SGPT) 42 U/L (10-68); BILIRUBIN - TOTAL 0.27 mg/dL (0.2-1.3); CALC OSMOLALITY 279 mosm/kg (275-300); CALCIUM 8.8 mg/dL (8.5-10.1); CARBON DIOXIDE 28.4 mmol/L (21.0-32.0); CHLORIDE - SERUM 105 mmol/L (98-107); CREATININE - SERUM 0.8 mg/dL (0.6-1.3); GLUCOSE 86 mg/dL (74-106); POTASSIUM - SERUM 3.9 mmol/L (3.5-5.1); PROTEIN - SERUM 7.5 g/dL (6.4-8.2); SODIUM 140 mmol/L (136-145); UREA NITROGEN 18 mg/dL (7-18); eGFR NON AFRICAN AMERICAN 83 mL/min (90-120)
[2019-06-07 19:00] VITALS: BP 114/86
--- NOTE | 2019-06-07 19:00 | NUR ---
HAND OFF REPORT GIVEN TO NEEMA MOREL USING SBAR COMMUNICATION.
--- NOTE | 2019-06-07 19:00 | NUR ---
HAND OFF REPORT GIVEN TO NEEMA MOREL USING SBAR COMMUNICATION.
--- NOTE | 2019-06-07 19:05 | NUR ---
PT PROVIDED SANDWICH BOX AND WATER. PLAN OF CARE DISCUSSED WITH PT.
[2019-06-07 20:00] VITALS: BP 97/61
[2019-06-07 20:20] VITALS: BP 94/61
--- NOTE | 2019-06-07 21:50 | NUR ---
RECIEVED REPORT FROM MARIA TERESA. ER. PT ARRIVED ON WHEEL CHAIR. INITIAL VVS, WITH BP 91/61. PT C/O PAIN A 10/10 ON ABDOMEN. PAIN MEDS WILL BE ADMINISTRED WHEN DUE. SPOUSE AT BEDSIDE WILL CTM.
[2019-06-07 22:09] VITALS: BP 97/61; BMI 16.6
--- NOTE | 2019-06-07 22:40 | NUR ---
PT C/O PAIN IN LOWETR BACK 1ML OF MORPHINE GIVEN @ THIS TIME. WILL CTM.
[2019-06-08 04:00] VITALS: BP 90/46
--- NOTE | 2019-06-08 07:10 | NUR ---
REPORT RECEIVED FROM LENS MARKER AND PATIENT CARE ASSUMED. PATIENT LAYING IN BED ON BACK AWAKE, ALERT AND ORIENTED X 4. PATIENT IS NPO AWAITING IR INTERVENTION TO REPLACE NEPHROTOSTOMY TODAY. PATIENT DENIES ANY NEEDS OR PAIN. WILL CONTINUE WITH PLAN OF CARE. SR UP X 2 BED IN LOW POSITION AND CALL LIGHT IN REACH.
--- NOTE | 2019-06-08 07:10 | NUR ---
REPORT RECEIVED FROM DATABASE PROGRAMMER AND PATIENT CARE ASSUMED. PATIENT IS LAYING IN BED ON BACK AWAKE, ALERT AND ORIENTED X 4. PATIENT DENIES ANY NEEDS OR PAIN. WILL CONTINUE WITH PLAN OF CARE. SR UP X 4 BED IN LOW POSTION AND CALL LIGHT IN REACH.
--- NOTE | 2019-06-08 07:10 | NUR ---
REPORT RECEIVED FROM TELEVISION DIRECTOR AND PATIENT CARE ASSUMED. PATIENT LAYING IN BED ON BACK AWAKE, ALERT AND ORIENTED X 4. PATIENT IS NPO AWAITING IR PROCEDURE ON NEPHROSOTOMY TUBE. PATIENT DENIES ANY NEEDS OR PAIN. WILL CONTINUE [facility] PLAN OF CARE..
[2019-06-08 08:52] VITALS: BP 90/54
[2019-06-08 09:08] LABS: APPEARANCE HAZY (CLEAR); BACTERIA FEW /hpf (NONE SEEN); BILIRUBIN NEGATIVE (NEGATIVE); COLOR YELLOW (YELLOW); EPITHELIAL CELLS OCC /hpf (0-5); GLUCOSE NEGATIVE (NEGATIVE); KETONE NEGATIVE (NEGATIVE); MUCUS <1+ /lpf (NONE SEEN); NITRITE NEGATIVE (NEGATIVE); PROTEIN TRACE mg/dL (NEGATIVE); RED CELLS - URINE 0-5 /hpf (0-5); SPECIFIC GRAVITY 1.025 (1.005-1.020); UROBILINOGEN NORMAL (NORMAL)
--- NOTE | 2019-06-08 11:00 | NUR ---
PATIENT TO IR. PATIENT IS STABLE AND VSS. PATIENT TO IR VIA HOSPITAL BED AND IR TEAM.
--- NOTE | 2019-06-08 11:44 | NUR ---
DR AGUILERA HERE REVIEWING FILMS, CONTACTED DR SEALS ABOUT NEPHROSTOMY TUBE. TUBE IS IN PLACE AND DRAINING PER CT AND ASSESSMENT OF PT. NO PROCEDURE NEEDED AT THIS TIME. TUBE LAST CHANGED OUT ON MAY 21 2019.
--- NOTE | 2019-06-08 12:00 | NUR ---
PATIENT REURNED FROM IR VIA HOSPITAL BED AND IR TEAM. PATIENT IS STABLE AND VSS. PATIENT DENIES ANY NEEDS OR PAIN. WILL CONTINUE TO MONITOR.
[2019-06-08 12:28] VITALS: Ht 160 cm; Wt 42.6 kg
[2019-06-08 13:56] VITALS: BP 90/62
--- NOTE | 2019-06-08 14:29 | NUR ---
REFUSED SCD'S PER RUBA/RN
[2019-06-08 17:39] VITALS: BP 96/54
--- NOTE | 2019-06-08 19:55 | NUR ---
PT CALLING ASKING ABOUT ANTIBIOTICS. WILL PAGE LILIBETH THE LOIN TRIMMER AND ASK
[2019-06-08 20:00] VITALS: BP 104/61
--- NOTE | 2019-06-08 20:06 | NUR ---
SPOKE WITH LILIBETH AMADOR. OBTAINED AN ORDER FOR ROCEPHIN 1 GRAM Q24H IVPB READ BACK ORDER TO VERIFY.
--- NOTE | 2019-06-08 20:50 | NUR ---
WENT OVER PLAN OF CARE WITH PT. PT HAVING PAIN. NOT RELIEF WITH NORCO. PT ASKING FOR SOMETHING STRONGER. SHARP PAIN IN LOWER BACK. STARTED ROCEPHIN ORDERED. PT HAS NO S/S OF DISTRESS. WILL CPOC
--- NOTE | 2019-06-08 22:59 | NUR ---
SPOKE WITH LILIBETH REGARDING PT CONCERNS. CANCELED CONSULT WITH IR AND CONSULTED DR. SEALS PER FAMILY AND PT REQUEST TO KEEP DR. SEALS ON CARE FOR NEPHROSTOMY TUBE WILL CONSULT DR. SEALS IN THE MORNING. PT ALSO COMPLAINS OF PAIN. LILIBETH STATES WHEN SEEN TODAY PT HAD ASKED FOR HOME DOSE OF NORCO. SO MORPHINE WAS CANCELED. ORDER FOR ONE TIME DOSE 2MG MORPHINE RECEIVED. LILIBETH STATES WILL EVALUATE PAIN MEDICATIONS IN THE MORNING.
--- NOTE | 2019-06-08 23:06 | NUR ---
UPDATED PT ON PLAN OF CARE. 2MG OF MORPHINE GIVEN. PT VERBALIZED UNDERSTANDING OF POC. NO S/S OF DISTRESS. WILL CPOC
--- NOTE | 2019-06-08 23:17 | NUR ---
HAVING PT URINATE IN HAT TO COMPAIR THE URINE IN THE NEPHROSTOMY TUBE AND URINE VOIDED. NEPHROSTOMY TUBE HAD 60ML OF CLOUDY PINK URINE. URINE VOIDED INTO HAT HAD 25ML OF CLEAR URINE WITH SEDIMENT.
[2019-06-09] VITALS: BP 129/64
[2019-06-09 04:00] VITALS: BP 97/58
[2019-06-09 05:21] LABS: BASOPHILS 0.2 % (0-2); EOSINOPHILS 13.3 % (0-7); HEMATOCRIT 34.3 % (36.0-48.0); HEMOGLOBIN 11.4 g/dL (12-16); IMMATURE GRANULOCYTES 0.2 % (0-5); LYMPHOCYTES 16.2 % (15-50); MCH 31.1 pg (26.0-34.0); MCHC 33.2 g/dL (31.0-37.0); MCV 93.7 fL (80.0-100.0); MEAN PLATELET VOLUME 9.1 fL (7.4-10.4); MONOCYTES 11.6 % (2-11); NEUTROPHILS 58.5 % (40-80); PLATELET COUNT 211 10x3/uL (130-400); RBC 3.66 10x6/uL (4.00-5.40); RDW 15.6 % (11.5-14.5); WBC 5.5 10x3/uL (4.8-10.8)
[2019-06-09 05:36] LABS: CALC OSMOLALITY 282 mosm/kg (275-300); CALCIUM 8.2 mg/dL (8.5-10.1); CARBON DIOXIDE 30.8 mmol/L (21.0-32.0); CHLORIDE - SERUM 107 mmol/L (98-107); CREATININE - SERUM 0.8 mg/dL (0.6-1.3); GLUCOSE 90 mg/dL (74-106); MAGNESIUM - SERUM 1.9 mg/dL (1.8-2.4); PHOSPHOROUS 3.4 mg/dL (2.5-4.9); POTASSIUM - SERUM 4.1 mmol/L (3.5-5.1); SODIUM 142 mmol/L (136-145); eGFR NON AFRICAN AMERICAN 83 mL/min (90-120)
[2019-06-09 05:38] LABS: UREA NITROGEN 12 mg/dL (7-18)
--- NOTE | 2019-06-09 07:31 | NUR ---
CALLED DR SEALS REGARDING CONSULT. HE STATED TO TEXT HIM CONSULT. PASSED TO EMILY DAY SHIFT NURSE
[2019-06-09 08:40] VITALS: BP 104/50
--- NOTE | 2019-06-09 09:09 | NUR ---
PATIENT IS SITTING UP IN BED. FAMILY AT BEDSIDE. SHE STATES THAT SHE NEEDS AN INCREASE IN HER PAIN MEDICATION. PAIN TREATED ORDERED. WATCHING FOR NEW ORDERS.
--- NOTE | 2019-06-09 09:46 | NUR ---
Nutrition follow-up: Diet advanced to regular 06/08 after procedure PO intake 100% of last 2 meals Labs reviewed Wt: 94# PO intake good at this time RDN following.
--- NOTE | 2019-06-09 09:47 | NUR ---
PATIENT IS NOT IN HER ROOM WHEN I CAM AROUND TO GIVE HER MORNING MEDICATIONS.
--- NOTE | 2019-06-09 10:39 | NUR ---
PATIENT HAS ONLY HAD 90 CC OUT OF HER NEPHROSTOMY TUBE SINCE LAST NIGHT. SHE REPORTS THAT IT IS JUST NOT DRAINING AND SHE IS VERY CONCERNED. PATIENT REPORTS THAT HER BACK HURTS SO BAD. WATCHING ORDERS. MARJORIE MCELROY ROUNDED THIS MORNING AND SPOKE WITH THE PATIENT. SHE DID LEAVE THE FLOOR EARLIER WITH FAMILY AND SHE HAS BEEN INFORMED THAT SHE CAN NOT HAVE HEAVY PAIN MEDICATIONA ND LEAVE THE FLOOR LIKE THAT.
[2019-06-09 12:27] VITALS: BP 101/62
--- NOTE | 2019-06-09 15:04 | NUR ---
CALLED DR SEALS ABOUT THE PATIENT NEPHROSTOMY TUBE IS NOT DRAINING. 90 ML HAVE COME OUT IN THE LAST 12 HOURS. SHE IS NOT UNINATING. SHE IS ON A CLINICAL PSYCHOLOGY TEACHER PUMP FOR PAIN. DR KEATING WANTED TO DISCHARGE HER HOWEVER, DR SEALS MUST SEE HER BEFORE SHE DISCHARGES. DR SEALS IS AWARE.
[2019-06-09 16:00] VITALS: BP 106/63
--- NOTE | 2019-06-09 16:37 | MORECARE ---
CASE MANAGEMENT DISCHARGE SUMMARY PATIENT: JOSE VALADEZ UNIT: [id number] ADM DATE: 06/08/19 AGE: 44 : 76 SEX: F ROOM/BED: D.2106 AUTHOR: MARTIN MCCORMICK PHYSICIAN: REFERRING PHYSICIAN: JAIRON KEATIGN MD DATE OF SERVICE: 06/09/19 Discharge Plan Patient Name: JOSE VALADEZ [facility] [facility] 1975 Planned Disposition: Home Anticipated Discharge Date: 06/09/19 Discharge Date: Expected LOS: 1 Initial Reviewer: [email or web address] Initial Review Date: 06/07/2019 Generated: 06/09/19 5:37 pm DCPIA - Discharge Planning Initial Assessment Updated by [email or web address]: Justin Judd on 06/09/19 4:36 pm * Is the patient Alert and Oriented? Yes * How many steps to enter\exit or inside your home? * PCP DR. GUILLERMO DIOP DORCHESTER * [facility] * Preadmission Environment Home Alone * ADLs Independent * Equipment None * Other Equipment NO MEDICAL EQUIPMENT PROVIDER PREFERENCE * List name and contact numbers for known caregivers / representatives who currently or will assist patient after discharge: ALVERTO KEMP, MOTHER, * Verbal permission to speak to the caregivers and representatives has been obtained from the patient. N/A * Community resources currently utilized None * Please name any agencies selected above. NONE * Additional services required to return to the preadmission environment? No * Can the patient safely return to the preadmission environment? Yes * Has this patient been hospitalized within the prior 30 days at any hospital? Yes Patient Name: JOSE VALADEZ Page 80040 at 1637 All edits/amendments must be made on the electronic document DICTATION DATE: 06/09/191636 KILN REPAIRER: MISTY 06/09/19 1637 RPT#: [id number] DC DATE: STATUS: ADM IN [facility] [address] [place] [address] END OF REPORT
--- NOTE | 2019-06-09 16:45 | MORECARE ---
CASE MANAGEMENT DISCHARGE SUMMARY PATIENT: JOSE VALADEZ UNIT: [id number] ADM DATE: 06/08/19 AGE: 44 : 76 SEX: F ROOM/BED: D.2104 AUTHOR: ANNY,DOC PHYSICIAN: REFERRING PHYSICIAN: JAIRON KEATING MD DATE OF SERVICE: 06/09/19 Discharge Plan Patient Name: JOSE VALADEZ Facility: [facility]:[place] : 1975 Planned Disposition: Home Anticipated Discharge Date: 06/09/19 Discharge Date: Expected LOS: 1 Initial Reviewer: [email or web address] Initial Review Date: 06/07/2019 Generated: 06/09/19 5:45 pm Comments DCP- Discharge Planning Updated by [email or web address]: Justin Judd on 06/09/19 3:[address] Patient Name: JOSE VALADEZ Admission Status: ER Accout number: [id number] Admission Date: 06-08-2019 : 1975 Admission Diagnosis: Attending: JOSE KEATING Current LOS: 1 Anticipated DC Date: 06-09-2019 Planned Disposition: Home Primary Insurance: MEDICAID [place] Discharge Planning Comments: CM MET WITH PT IN ROOM TO DISCUSS DISCHARGE PLANNING AND NEEDS. PT REPORTS LIVING AT HOME INDEPENDENTLY AND ALONE. PT HAS NO MEDICAL EQUIPMENT AND NO OUTSIDE SERVICES ASSISTING IN THE HOME. CM DISCUSSED AVAILABILITY OF HOME HEALTH, REHAB SERVICES AND MEDICAL EQUIPMENT. PT DENIES DISCHARGE NEEDS, REPORTS HER MOTHER WILL PICK HER UP FOR DISCHARGE HOME. PT PLANS TO DISCHARGE HOME ALONE, DENIES DISCHARGE NEEDS AT THIS TIME. PT'S MOTHER TO TRANSPORT HOME AT DISCHARGE. CM TO FOLLOW AND ASSIST NEEDED. Preschool Assistant Director: Justin Judd DCPIA - Discharge Planning Initial Assessment Updated by [email or web address]: Justin Judd on 06/09/19 4:36 pm * Is the patient Alert and Oriented? Yes * How many steps to enter\exit or inside your home? * PCP MARI SHERIFF * [facility] * Preadmission Environment Home Alone * ADLs Independent * Equipment None * Other Equipment NO MEDICAL EQUIPMENT PROVIDER PREFERENCE * List name and contact numbers for known caregivers / representatives who currently or will assist patient after discharge: ALVERTO KEMP, MOTHER, * Verbal permission to speak to the caregivers and representatives has been obtained from the patient. N/A * Community resources currently utilized None * Please name any agencies selected above. NONE * Additional services required to return to the preadmission environment? No * Can the patient safely return to the preadmission environment? Yes * Has this patient been hospitalized within the prior 30 days at any hospital? Yes Last DP export: 06/09/19 3:37 p Patient Name: JOSE VALADEZ Page 25540 at 1645 All edits/amendments must be made on the electronic document DICTATION DATE: 06/09/191644 LABORATORY TECHNOLOGIST: MISTY 06/09/191644 RPT#: [id number] DC DATE: STATUS: ADM IN [facility] [address] [place] [address] END OF REPORT
--- NOTE | 2019-06-09 16:54 | NUR ---
DISCHARGE PAPERWORK HAS BEEN DONE. HOWEVER WHEN I CALLED DR ALLEN OFFICE, HIS NURSE PRACTITIONER SAID THAT BECAUSE HER NEPHROSTOMY TUBE IS NOT DRAINING TO HOLD HER UNTIL DR SEALS CAN SEE HER. SHE IS NOT URINATING AT THIS TIME. TODAY SHE HAS ONLY PRODUCED LESS THEN 50 ML OF URINE.
--- NOTE | 2019-06-09 19:23 | NUR ---
PT IN BED. MALE VISITOR AT BEDSIDE. PT SAYS THAT SHE DOESNT THINK HER ASSISTANT PROFESSOR OF EDUCATION IS WORKING. INSPECTED ASSISTANT PROFESSOR OF EDUCATION TO ENSURE WORKING ORDER. RE EDUCATED PT ON ASSISTANT PROFESSOR OF EDUCATION USE. PT VERBALIZES UNDERSTANDING. DENIES NEEDS AT THIS TIME.
[2019-06-09 20:00] VITALS: BP 115/70
--- NOTE | 2019-06-10 04:50 | NUR ---
pt left floor at this time to go smoke despite multiple attempts to convince her not to do so.
--- NOTE | 2019-06-10 05:25 | NUR ---
PT RETURNED TO FLOOR AT THIS TIME.
--- NOTE | 2019-06-10 05:28 | NUR ---
PAGED CLINIC LEAD LUBE TECHNICIAN TWICE. NO RESPONSE AWAITING CALL
[2019-06-10 08:07] LABS: BASOPHILS 0.2 % (0-2); EOSINOPHILS 9.7 % (0-7); HEMATOCRIT 37.8 % (36.0-48.0); HEMOGLOBIN 12.4 g/dL (12-16); IMMATURE GRANULOCYTES 0.2 % (0-5); LYMPHOCYTES 16.9 % (15-50); MCH 30.9 pg (26.0-34.0); MCHC 32.8 g/dL (31.0-37.0); MCV 94.3 fL (80.0-100.0); MEAN PLATELET VOLUME 9.3 fL (7.4-10.4); MONOCYTES 9.8 % (2-11); NEUTROPHILS 63.2 % (40-80); PLATELET COUNT 233 10x3/uL (130-400); RBC 4.01 10x6/uL (4.00-5.40); RDW 15.4 % (11.5-14.5); WBC 6.6 10x3/uL (4.8-10.8)
[2019-06-10 08:32] VITALS: BP 126/80
[2019-06-10 08:37] LABS: APTT 28.5 SECONDS (22.8-39.4); INR 0.96 (0.85-1.17); PROTIME 12.3 SECONDS (11.6-15.0)
[2019-06-10 08:38] LABS: ANION GAP 9.2 mmol/L (8-16); CALCIUM 8.8 mg/dL (8.5-10.1); CARBON DIOXIDE 32.5 mmol/L (21.0-32.0); CREATININE - SERUM 0.9 mg/dL (0.6-1.3); MAGNESIUM - SERUM 1.8 mg/dL (1.8-2.4); PHOSPHOROUS 3.5 mg/dL (2.5-4.9); POTASSIUM - SERUM 3.7 mmol/L (3.5-5.1)
--- NOTE | 2019-06-10 14:59 | MORECARE ---
CASE MANAGEMENT DISCHARGE SUMMARY PATIENT: JOSE VALADEZ UNIT: [id number] ADM DATE: 06/08/19 AGE: 44 : 77 SEX: F ROOM/BED: D.2107 AUTHOR: ANNY,DOC PHYSICIAN: REFERRING PHYSICIAN: JAIRON KEATING MD DATE OF SERVICE: 06/10/19 Discharge Plan Patient Name: JOSE VALADEZ Facility: [facility]:[place] : 1975 Planned Disposition: Home Anticipated Discharge Date: 06/10/19 Discharge Date: 06/10/2019 Expected LOS: 2 Initial Reviewer: [email or web address] Initial Review Date: 06/07/2019 Generated: 06/10/19 3:59 pm Comments DCP- Discharge Planning Updated by [email or web address]: Justin Judd on 06/09/19 3:[address] Patient Name: JOSE VALADEZ Admission Status: ER Accout number: [id number] Admission Date: 06-08-2019 : 1975 Admission Diagnosis: Attending: JOSE KEATING Current LOS: 1 Anticipated DC Date: 06-09-2019 Planned Disposition: Home Primary Insurance: MEDICAID [place] Discharge Planning Comments: CM MET WITH PT IN ROOM TO DISCUSS DISCHARGE PLANNING AND NEEDS. PT REPORTS LIVING AT HOME INDEPENDENTLY AND ALONE. PT HAS NO MEDICAL EQUIPMENT AND NO OUTSIDE SERVICES ASSISTING IN THE HOME. CM DISCUSSED AVAILABILITY OF HOME HEALTH, REHAB SERVICES AND MEDICAL EQUIPMENT. PT DENIES DISCHARGE NEEDS, REPORTS HER MOTHER WILL PICK HER UP FOR DISCHARGE HOME. PT PLANS TO DISCHARGE HOME ALONE, DENIES DISCHARGE NEEDS AT THIS TIME. PT'S MOTHER TO TRANSPORT HOME AT DISCHARGE. CM TO FOLLOW AND ASSIST NEEDED. [employer] Stitcher: Justin Judd DCPIA - Discharge Planning Initial Assessment Updated by [email or web address]: Justin Judd on 06/09/19 4:36 pm * Is the patient Alert and Oriented? Yes * How many steps to enter\exit or inside your home? * PCP MARI SHERIFF * [facility] * Preadmission Environment Home Alone * ADLs Independent * Equipment None * Other Equipment NO MEDICAL EQUIPMENT PROVIDER PREFERENCE * List name and contact numbers for known caregivers / representatives who currently or will assist patient after discharge: ALVERTO KEMP, MOTHER, * Verbal permission to speak to the caregivers and representatives has been obtained from the patient. N/A * Community resources currently utilized None * Please name any agencies selected above. NONE * Additional services required to return to the preadmission environment? No * Can the patient safely return to the preadmission environment? Yes * Has this patient been hospitalized within the prior 30 days at any hospital? Yes Last DP export: 06/09/19 3:45 p Patient Name: JOSE VALADEZ Page 66915 at 1459 All edits/amendments must be made on the electronic document DICTATION DATE: 06/10/191457 LAWN SERVICE SUPERVISOR: MISTY 06/10/191457 RPT#: [id number] [place] DATE:06/10/19 STATUS: DIS IN [facility] [address] [place] [address] END OF REPORT
== END 2019-06-10 11:13 | disposition home or self-care (01) | DRG 699 ==
LOC: D.ER 15:36 → D.M2 20:49 → OBSVTIME 20:56 → D.M2 21:04
PROVIDERS: Family Medicine; Radiology Diagnostic Radiology; ADMIT Emergency Medicine; ATTEND Emergency Medicine
DX: N99.524 Stenosis of incontinent stoma of urinary tract (principal); N13.30 Unspecified hydronephrosis; N39.0 Urinary tract infection, site not specified; Y83.9 Surgical procedure, unspecified as the cause of abnormal reaction of the patient, or of later complication, without mention of misadventure at the time of the procedure; D64.9 Anemia, unspecified; J44.9 Chronic obstructive pulmonary disease, unspecified; I95.9 Hypotension, unspecified

== ENCOUNTER 2019-06-11 19:18 | Emergency (ER) | payer MEDICAID ==
[~2019-06-11] VITALS: Ht 160 cm; Wt 42.7 kg
[2019-06-11 19:59] VITALS: BP 102/57; Ht 160 cm; Wt 42.7 kg
[2019-06-11 20:36] LABS: BASOPHILS 0.1 % (0-2); EOSINOPHILS 12.7 % (0-7); HEMATOCRIT 34.4 % (36.0-48.0); HEMOGLOBIN 11.3 g/dL (12-16); IMMATURE GRANULOCYTES 0.3 % (0-5); LYMPHOCYTES 18.7 % (15-50); MCH 30.4 pg (26.0-34.0); MCHC 32.8 g/dL (31.0-37.0); MCV 92.5 fL (80.0-100.0); MEAN PLATELET VOLUME 8.8 fL (7.4-10.4); MONOCYTES 7.6 % (2-11); NEUTROPHILS 60.6 % (40-80); PLATELET COUNT 215 10x3/uL (130-400); RBC 3.72 10x6/uL (4.00-5.40); RDW 15.2 % (11.5-14.5); WBC 6.8 10x3/uL (4.8-10.8)
[2019-06-11 20:56] LABS: ALBUMIN 3.3 g/dL (3.4-5.0); ALKALINE PHOSPHATASE 109 U/L (46-116); ALT (SGPT) 37 U/L (10-68); BILIRUBIN - TOTAL 0.13 mg/dL (0.2-1.3); CALC OSMOLALITY 282 mosm/kg (275-300); CALCIUM 8.6 mg/dL (8.5-10.1); CHLORIDE - SERUM 106 mmol/L (98-107); CREATININE - SERUM 0.8 mg/dL (0.6-1.3); GLUCOSE 114 mg/dL (74-106); POTASSIUM - SERUM 3.5 mmol/L (3.5-5.1); PROTEIN - SERUM 7.2 g/dL (6.4-8.2); SODIUM 142 mmol/L (136-145); UREA NITROGEN 9 mg/dL (7-18); eGFR NON AFRICAN AMERICAN 83 mL/min (90-120)
[2019-06-11 20:59] LABS: AMYLASE - SERUM 40 U/L (25-115); LIPASE 79 U/L (73-393); TROPONIN-I < 0.017 ng/mL (0.000-0.060)
[2019-06-12 00:48] LABS: APPEARANCE HAZY (CLEAR); BACTERIA FEW /hpf (NONE SEEN); BILIRUBIN NEGATIVE (NEGATIVE); COLOR YELLOW (YELLOW); EPITHELIAL CELLS OCC /hpf (0-5); GLUCOSE NEGATIVE (NEGATIVE); KETONE NEGATIVE (NEGATIVE); NITRITE NEGATIVE (NEGATIVE); PROTEIN TRACE mg/dL (NEGATIVE); RED CELLS - URINE 0-5 /hpf (0-5); SPECIFIC GRAVITY 1.015 (1.005-1.020); UROBILINOGEN NORMAL (NORMAL)
[2019-06-12] MEDS ORDERED: KEFLEX500 MG PO (01:04)
[2019-06-12] MEDS ORDERED: MACROBID100 MG PO (01:04)
== END 2019-06-12 01:12 | disposition home or self-care (01) ==
LOC: D.ER 19:18
PROVIDERS: Family Medicine
DX: N39.0 Urinary tract infection, site not specified (principal)

== ENCOUNTER 2019-06-25 18:10 | Emergency (ER) | payer OTHER ==
[~2019-06-25] VITALS: Ht 160 cm; Wt 41.4 kg
[~2019-06-25 18:10] MED LIST changes: +KEFLEX500 MG PO; +MACROBID100 MG PO
[2019-06-25 18:15] VITALS: Ht 160 cm; Wt 41.4 kg
[2019-06-25 18:43] LABS: APPEARANCE SL CLDY (CLEAR); BILIRUBIN NEGATIVE (NEGATIVE); COLOR YELLOW (YELLOW); GLUCOSE NEGATIVE (NEGATIVE); KETONE NEGATIVE (NEGATIVE); NITRITE NEGATIVE (NEGATIVE); PROTEIN 1+ mg/dL (NEGATIVE); UROBILINOGEN NORMAL (NORMAL)
[2019-06-25 18:45] LABS: BACTERIA MANY /hpf (NONE SEEN); EPITHELIAL CELLS 0-5 /hpf (0-5); RED CELLS - URINE 0-5 /hpf (0-5)
[2019-06-25 18:46] LABS: AMORPHOUS SEDIMENT >1+ /lpf (NONE SEEN)
[2019-06-25] MEDS ORDERED: NAPROSYN500 MG PO (19:00)
[2019-06-25] MEDS ORDERED: MACROBID100 MG PO (19:00)
[2019-06-25 19:20] VITALS: BP 101/64
== END 2019-06-25 19:22 | disposition home or self-care (01) ==
LOC: D.ER 18:10
PROVIDERS: Family Medicine
DX: M54.5 Low back pain (principal); N39.0 Urinary tract infection, site not specified; F17.200 Nicotine dependence, unspecified, uncomplicated

== ENCOUNTER 2019-07-16 08:13 | Outpatient (CLI) | payer OTHER ==
[~2019-07-16] VITALS: Ht 160 cm; Wt 42.3 kg
--- NOTE | ~2019-07-16 | HEMODYNAMI ---
PATIENT:JOSE VALADEZ MEDICAL RECORD: [id number] : 77 LOCATION:D. ADMISSION DATE: 07/16/19 Generatedon:07/16/201911:21 Patient name: JOSE VALADEZ Patient #: [id number] SSN: : 1975 Date of study: 07/16/2019 Page: Of Hemodynamic Procedure Report Patient Data Patient Demographics Procedure consent was obtained First Name: JOSE Gender: Female Last Name: ALLYSON : 1975 [facility] Initial: D Age: 44 year(s) Patient #: [id number] Race: Unknown Additional ID: [id number] Contact details Address: [address] [place] [address] [email or web address] [facility] State: [place] City: [place] Zip code: [address] Past Medical History Allergies: No known allergies Admission Admission Data Admission Date: 07/16/2019 Admission Time: 8:13 Procedure Procedure Types Cath Procedure Peripheral Cath Diagnostic Procedure Nephro Nephrostomy Tube Exchange Procedure Description Procedure Date Procedure Date: 07/16/2019 Procedure Start Time: 11:05 Procedure Staff Name Function India Pena RT Monitor Ashvin Mcgregor MD Performing Physician Parul Finn RN Nurse MIRELA NATHAN RT Scrub Procedure Data Cath Procedure Fluoroscopy Diagnostic fluoroscopy Total fluoroscopy Time: 0.3 time: 0.3 min min Diagnostic fluoroscopy Total fluoroscopy dose: 2 dose: 2 mGy mGy Contrast Material Contrast Material Type Amount (ml) Isovue 300 5 Procedure Medications Medication Administration Route Dosage unlisted medication I.V. drip 1 g Hemodynamics Rest Pre Cath Intra NCS Post Cath Medications Time Medication Route Dose Verified Delivered Reason Notes Effectiven ess by by 11:20:45 cefepime I.V. 1 g Ashvin Hampton used for drip Meche Finn RN procedure MD Procedure Log Time Note 10:50:43 Time tracking: Regular hours (M-F 7:00 - 5:00) 10:51:23 Plan of Care:Hemodynamics will remain stable., Cardiac rhythm will remain stable., Comfort level will be maintained., Respiratory function will remain adequate., Patient/ family verbilizes understanding of procedure., Procedure tolerated without complication., Recovers from procedure without complications.. 10:51:31 Patient received from Outpatients to IR Alert and oriented. Tansferred to table in Prone position. 10:51:48 Signed procedure consent form obtained from patient. 10:51:55 Family unavailable. 10:51:58 Patient NPO since Breakfast. 10:52:07 Patient allergic to No known allergies 10:52:13 - 10:52:28 IV patent on arrival in left hand with D5/.45%NaCl at KVO. 10:52:53 Right Renal was prepped with chlora-prep and draped in sterile fashion. 10:53:01 - 10:53:05 Use device set IR Diagnostic 10:53:07 Tegaderm 4 x 4 (1626W) opened to sterile field. 10:53:08 Sterile Angiographic Pack opened to sterile field. 10:53:09 Bag Decanter () opened to sterile field. 10:53:17 - 11:04:48 Physician arrived 11:04:49 --------ALL STOP TIME OUT------ 11:04:50 Final Timeout: patient, procedure, and site verified with staff and physician. All members of the team are in agreement. 11:05:26 Full Disclosure recording started 11:05:26 Procedure started. 11:05:36 Local anesthetic to Right Renal area with Lidocaine 1% by Ashvin Mcgregor MD.INITIAL ACCESS ONLY [facility] 145 glide wire ([id number]) opened to sterile field. 11:09:55 Abscession 10 FR drainage catheter ([id number]) opened to sterile field. 11:09:56 BAG, DRAINAGE EMPTY 600ML W/ADDI ([id number]) opened to sterile field. 11:10:52 STOP[place]OCK 3-Way Large Bore ([id number]) opened to sterile field. 11:13:18 10fr drain exchanged in rt. kidney 11:14:35 Procedure ended.(Physican Out) 11:14:53 Fluoroscopy time 00.30 minutes. 11:14:56 Fluoroscopy dose: 2 mGy 11:14:56 Flurop Dose total: 2 11:15:03 Contrast amount:Isovue 300 5ml. 11:15:05 Procedure and supply charges have been captured, reviewed, submitted an d are correct. 11:15:54 Full Disclosure recording stopped 11:20:45 cefepime 1 g I.V. drip was administered by Berta Finn RN; used for procedure; Device Usage Item Name Manufacture Quantity Catalog Hospital Part Current Minima l Lot# / Number Charge Number Stock Stock Serial# Code Tegaderm 4 x 3M 1 [id number] 5 4 (1626W) Sterile Cardinal 1 [id number] 678098 5 Angiographic Health Pack Bag Decanter Microtek 1 [id number] 37874 329034 5 (2001S) [facility] [facility] 1 [id number] 910379 999842 110862 5 [id number] .035 145 glide wire (H15195) Abscession Angiodynamics 1 [id number] 185445 124798 439947 5 10 FR drainage catheter ([id number]) BAG, [facility] 1 [id number] 023854 184133 369049 5 [id number] DRAINAGE EMPTY 600ML W/ADDI (TSE268) [facility] F50070 759526 7235 916690 5 [id number] 3-Way Large Bore (R02463) Signature Audit [place] Stage Time Signature Unsigned Intra-Procedure 07/16/2019 India Pena RT(R) 11:15:47 AM RT(R) 07/16/2019 11:19:37 AM Intra-Procedure 07/16/2019 India Pena 11:21:22 AM RT(R) Signatures Monitor : India Pena RT Signature : Date : Time : [facility] [address] [place] [address]
[~2019-07-16 08:13] MED LIST changes: +NAPROSYN500 MG PO
[2019-07-16 09:16] LABS: BASOPHILS 0.1 % (0-2); EOSINOPHILS 1.9 % (0-7); HEMATOCRIT 33.3 % (36.0-48.0); HEMOGLOBIN 11.4 g/dL (12-16); IMMATURE GRANULOCYTES 0.2 % (0-5); MCH 32.3 pg (26.0-34.0); MCHC 34.2 g/dL (31.0-37.0); MCV 94.3 fL (80.0-100.0); MEAN PLATELET VOLUME 8.8 fL (7.4-10.4); MONOCYTES 8.4 % (2-11); NEUTROPHILS 80.4 % (40-80); PLATELET COUNT 227 10x3/uL (130-400); RBC 3.53 10x6/uL (4.00-5.40); RDW 15.6 % (11.5-14.5); WBC 10.3 10x3/uL (4.8-10.8)
[2019-07-16 09:23] LABS: APTT 26.4 SECONDS (22.8-39.4); INR 0.98 (0.85-1.17); PROTIME 12.5 SECONDS (11.6-15.0)
[2019-07-16 09:24] LABS: ANION GAP 12.8 mmol/L (8-16); CALCIUM 9.3 mg/dL (8.5-10.1); CARBON DIOXIDE 26.9 mmol/L (21.0-32.0); CREATININE - SERUM 0.9 mg/dL (0.6-1.3); POTASSIUM - SERUM 3.7 mmol/L (3.5-5.1)
[2019-07-16 09:30] VITALS: BP 113/82; Ht 160 cm; Wt 42.3 kg
[2019-07-16] MEDS ORDERED: HYDROCODON-ACET15 ML PO (09:37)
--- NOTE | 2019-07-16 14:26 | NUR ---
1150 PT DID NOT RECEIVE SEDATION IN RADIOLOGY DEPT FOR EXCHANGE OF NEPHROSTOMY TUBE DUE TO NPO VIOLATION. PT HAD COFFEE PRIOR TO ARRIVAL TO OPS. VSS. PT ANXIOUS AND READY TO BE DISCHARGED HOME. 1153 IV DC'D. CATHETER TIP INTACT. NO BLEEDING AT SITE. BANDAID APPLIED.
== END 2019-07-16 12:05 | disposition home or self-care (01) ==
LOC: D.SP 08:13 → D.RAD 09:30 → D.SP 09:30
PROVIDERS: Specialist; ATTEND Urology
DX: N13.1 Hydronephrosis with ureteral stricture, not elsewhere classified (principal); Z01.812 Encounter for preprocedural laboratory examination

== ENCOUNTER → 2019-08-30 13:14 | Outpatient (CLI) | payer OTHER ==
[2019-07-16 09:30] VITALS: BMI 16.5
[~2019-08-30 13:14] MED LIST changes: +AUGMENTIN 875-11 TAB PO; +HYDROCODON-ACET15 ML PO; +IBUPROFEN400 MG PO
== END | disposition home or self-care (01) ==
LOC: D.LABREF 13:14
PROVIDERS: ATTEND Urology
DX: Z00.00 Encounter for general adult medical examination without abnormal findings (principal)

== ENCOUNTER 2019-09-08 09:59 | Outpatient (CLI) | payer MEDICAID ==
[~2019-09-08] VITALS: Ht 160 cm; Wt 44.1 kg
--- NOTE | ~2019-09-08 | HEMODYNAMI ---
PATIENT:JOSE VALADEZ MEDICAL RECORD: [id number] : [birth year] LOCATION:D. ADMISSION DATE: 09/08/19 Generatedon:09/08/201913:30 Patient name: JOSE VALADEZ Patient #: [id number] SSN: : 1975 Date of study: 09/08/2019 Page: Of Hemodynamic Procedure Report Patient Data Patient Demographics Procedure consent was obtained First Name: JOSE Gender: Female Last Name: ALLYSON : 1975 [facility] Initial: D Age: 44 year(s) Patient #: [id number] Race: Unknown Additional ID: [id number] Contact details [address]: [address] [place] [address] [email or web address] State: [place] City: [place] Zip code: [address] Past Medical History Allergies: No known allergies Admission Admission Data Admission Date: 09/08/2019 Admission Time: 9:59 Procedure Procedure Types Cath Procedure Peripheral Cath Diagnostic Procedure Nephro Nephrostomy Tube Exchange Procedure Description Procedure Date Procedure Date: 09/08/2019 Procedure Start Time: 13:20 Procedure Staff Name Function Kavon Rios MD Performing Physician India Pena RT Monitor MIRELA NATHAN RT Scrub Berta Finn RN Nurse Parul Mendez RN Nurse Procedure Data Cath Procedure Fluoroscopy Diagnostic fluoroscopy Total fluoroscopy Time: 1.1 time: 1.1 min min Diagnostic fluoroscopy Total fluoroscopy dose: 6 dose: 6 mGy mGy Contrast Material Contrast Material Type Amount (ml) Isovue 300 10 Procedure Medications Medication Administration Route Dosage unlisted medication I.V.P.B 1 Heparin Flush Bag added to field 1 bags (1000units/500ml NS) Fentanyl I.V. 50 mcg Fentanyl I.V. 50 mcg Hemodynamics Rest Heart Rate: 92 (bpm) Snapshots Pre Cath Intra NCS Post Cath Vital Signs Time Heart Resp SPO2 etCO2 NIBP (mmHg) Rhythm Pain Status Sedation Rate (ipm) (%) (mmHg) Level (bpm) 13:21:48 89 21 100 0 105/75(91) NSR 4 (11) , 10(A) Distressing 13:25:42 104 13 99 0 111/75(104) NSR 0 (11) , No 10(A) pain 13:29:42 95 15 98 0 106/70(87) NSR 0 (11) , No 10(A) pain Medications Time Medication Route Dose Verified Delivered Reason Notes Effe ctiveness by by 13:09:15 cefepime I.V.P.B 1gm Parul Parul Per Andrea Mendez RN physician RN 13:22:39 Heparin Flush added 1 Kavon Jacobson used for Bag to bags Blanca Rios procedure (1000units/500ml field MD DUFF NS) 13:22:58 Fentanyl I.V. 50 Kavon Teran for back mcg Blanca Mendez RN pain 13:25:25 Fentanyl I.V. 50 Kavon Parul for back mcg Blanca Mendez RN pain Procedure Log Time Note 12:22:24 Use device set IR Diagnostic 12:22:26 Bag Decanter (2002S) opened to sterile field. 12:22:26 Sterile Angiographic Pack opened to sterile field. 12:22:27 Tegaderm 4 x 4 (1626W) opened to sterile field. 12:49:09 Time tracking: Regular hours (M-F 7:00 - 5:00) 12:49:29 Plan of Care:Hemodynamics will remain stable., Cardiac rhythm will remain stable., Comfort level will be maintained., Respiratory function will remain adequate., Patient/ family verbilizes understanding of procedure., Procedure tolerated without complication., Recovers from procedure without complications.. 12:49:38 Patient received from Outpatients to IR Alert and oriented. Tansferred to table in Prone position. 12:49:45 Signed procedure consent form obtained from patient. 12:50:00 Pre-procedure instructions explained to patient. 12:50:00 Pre-op teaching completed and patient verbalized understanding. 12:50:03 Family in patients room. 12:50:10 Patient NPO since Midnight. 12:50:20 Patient allergic to No known allergies 12:50:24 Is the patient allergic to Iodine/contrast media? No. 12:50:29 Is patient on blood thinner?No 12:50:35 Patient diabetic? No. 12:50:39 - 12:50:49 IV patent on arrival in left hand with D5/.45%NaCl at KVO. 12:51:04 Right Renal was prepped with chlora-prep and draped in sterile fashion. 12:51:05 - 13:09:15 cefepime 1gm I.V.P.B was administered by Parul Mendez RN; Per physician; Verbal order read back and verified. 13:09:28 Abscession 10 FR drainage catheter ([id number]) opened to sterile field. 13:10:21 Fire Safety Assessment: A--An alcohol-based skin anteseptic being used preoperatively. 13:10:56 Maximum allowable contrast dose (3.7 X eGFR X 0.75)249.75 ml. 13:19:46 Physician arrived 13:19:47 --------ALL STOP TIME OUT------ 13:19:49 Final Timeout: patient, procedure, and site verified with staff and physician. All members of the team are in agreement. 13:20:17 Procedure started. 13:20:17 Full Disclosure recording started 13:20:26 Local anesthetic to Right Renal area with Lidocaine 1% by Kavon lou MD.INITIAL ACCESS ONLY 13:20:48 ECG and BP/O2 sat monitors applied to patient. 13:20:49 Vital chart was started 13:20:51 Baseline sample Acquired. 13:20:56 - 13:22:19 LYNNETTE .035 15cm wire ([id number]) opened to sterile field. 13:22:39 Heparin Flush Bag (1000units/500ml NS) 1 bags added to field was administered by Kavon Rios MD; used for procedure; Verbal order read back and verified. 13:22:58 Fentanyl 50 mcg I.V. was administered by Parul Mendez RN; for back pain; Verbal order read back and verified. 13:25:25 Fentanyl 50 mcg I.V. was administered by Parul Mendez RN; for back pain; Verbal order read back and verified. 13:26:03 catheter exchanged, 10fr abscession catheter 13:26:11 BAG, DRAINAGE EMPTY 600ML W/ADDI ([id number]) opened to sterile field. 13:27:55 Procedure ended.(Physican Out) 13:28:27 Fluoroscopy time 01.10 minutes. 13:28:42 Fluoroscopy dose: 6 mGy 13:28:42 Flurop Dose total: 6 13:28:53 Contrast amount:Isovue 300 10ml. 13:29:54 Procedure and supply charges have been captured, reviewed, submitted an d are correct. 13:30:01 Report given to Outpatients. 13:30:36 Vital chart was stopped Device Usage Item Name Manufacture Quantity Catalog Hospital Part Current Minima l Lot# / Number Charge Number Stock Stock Serial# Code Bag Decanter Microtek 1 [id number] 34268 [id number] 5 () Medical Inc. Sterile Cardinal 1 [id number] [id number] 150979 5 Angiographic Health Pack Tegaderm 4 x 3M 1 1626W 677930 342275 504645 5 4 (1626W) Abscession Angiodynamics 1 [id number] 277812 818717 079669 5 10 FR drainage catheter ([id number]) LYNNETTE .035 [employer] 1 [id number] 947057 521388 5 [id number] 15cm wire (T25207) BAG, [employer] 1 [id number] 454547 992980 447262 5 DRAINAGE EMPTY 600ML W/ADDI (CPZ324) Signature Audit [place] Stage Time Signature Unsigned Intra-Procedure 09/08/2019 India Pena 1:30:31 PM RT(R) [facility] [address] [place] [address]
[~2019-09-08 09:59] MED LIST changes: -AUGMENTIN 875-11 TAB PO; -IBUPROFEN400 MG PO
[2019-09-08 10:29] LABS: BASOPHILS 0.2 % (0-2); EOSINOPHILS 12.6 % (0-7); HEMATOCRIT 40.1 % (36.0-48.0); HEMOGLOBIN 13.1 g/dL (12-16); IMMATURE GRANULOCYTES 0.2 % (0-5); LYMPHOCYTES 20.3 % (15-50); MCH 31.4 pg (26.0-34.0); MCHC 32.7 g/dL (31.0-37.0); MCV 96.2 fL (80.0-100.0); MEAN PLATELET VOLUME 8.6 fL (7.4-10.4); MONOCYTES 10.6 % (2-11); NEUTROPHILS 56.1 % (40-80); PLATELET COUNT 253 10x3/uL (130-400); RBC 4.17 10x6/uL (4.00-5.40); RDW 14.4 % (11.5-14.5); WBC 5.9 10x3/uL (4.8-10.8)
[2019-09-08 10:41] LABS: CALC OSMOLALITY 280 mosm/kg (275-300); CALCIUM 8.9 mg/dL (8.5-10.1); CARBON DIOXIDE 31.4 mmol/L (21.0-32.0); CHLORIDE - SERUM 107 mmol/L (98-107); CREATININE - SERUM 0.7 mg/dL (0.6-1.3); GLUCOSE 75 mg/dL (74-106); SODIUM 142 mmol/L (136-145); UREA NITROGEN 10 mg/dL (7-18); eGFR NON AFRICAN AMERICAN > 90 mL/min (90-120)
[2019-09-08 10:42] LABS: APTT 27.3 SECONDS (22.8-39.4); INR 0.96 (0.85-1.17); PROTIME 12.3 SECONDS (11.6-15.0)
[2019-09-08 10:53] VITALS: BP 121/73; Ht 160 cm; Wt 44.1 kg
[2019-09-08 11:14] LABS: HCG SERUM NEGATIVE (NEGATIVE)
--- NOTE | 2019-09-08 14:27 | NUR ---
DC INSTRUCTIONS GIVEN TO PT. STATES UNDERSTANDING. DC'D IV CATH.
--- NOTE | 2019-09-08 14:27 | NUR ---
PT LEFT UNIT VIA [id number]
== END 2019-09-08 14:28 | disposition home or self-care (01) ==
LOC: D.SP 09:59 → D.RAD 13:00 → D.SP 13:00
PROVIDERS: Radiology Diagnostic Radiology; ATTEND Urology
DX: N99.521 Infection of incontinent external stoma of urinary tract (principal); Y84.9 Medical procedure, unspecified as the cause of abnormal reaction of the patient, or of later complication, without mention of misadventure at the time of the procedure

== ENCOUNTER 2019-09-21 07:50 | Day surgery (SDC) | payer MEDICAID ==
[2019-09-20 11:20] LABS: BASOPHILS 0.1 % (0-2); EOSINOPHILS 9.8 % (0-7); HEMATOCRIT 37.8 % (36.0-48.0); HEMOGLOBIN 12.3 g/dL (12-16); IMMATURE GRANULOCYTES 0.3 % (0-5); MCH 31.6 pg (26.0-34.0); MCHC 32.5 g/dL (31.0-37.0); MCV 97.2 fL (80.0-100.0); MEAN PLATELET VOLUME 9.2 fL (7.4-10.4); MONOCYTES 10.2 % (2-11); NEUTROPHILS 65.6 % (40-80); PLATELET COUNT 303 10x3/uL (130-400); RBC 3.89 10x6/uL (4.00-5.40); RDW 14.2 % (11.5-14.5); WBC 10.1 10x3/uL (4.8-10.8)
[~2019-09-21] VITALS: Ht 160 cm; Wt 46.7 kg
[2019-09-21] MEDS ORDERED: AUGMENTIN 875-11 TAB PO (08:08)
[2019-09-21] MEDS ORDERED: IBUPROFEN400 MG PO (08:09)
[2019-09-21 08:10] VITALS: BP 109/73; Ht 160 cm; Wt 46.7 kg
[2019-09-21 09:58] LABS: INR 1.05 (0.85-1.17); PROTIME 13.2 SECONDS (11.6-15.0)
[2019-09-21 09:59] LABS: APTT 28.7 SECONDS (22.8-39.4)
--- NOTE | 2019-09-21 11:21 | NUR ---
PERSONAL ITEMS PLACED IN PERSONAL EFFECTS BAG
--- NOTE | 2019-09-21 12:40 | OP ---
PATIENT NAME: JOSE VALADEZ MEDICAL RECORD: [id number] :77 LOCATION:[facility] ADMISSION DATE: SURGEON: JONATHAN SEALS MD DATE OF OPERATION: 09/21/2019 SURGEON: Jonathan Seals MD ANESTHESIA: General anesthesia by Devin Griffin MD DIAGNOSES: Metastatic cervical cancer with right hydroureteronephrosis. PROCEDURES: Cystoscopy, right retrograde pyelogram, right ureteral stent insertion 6-Moroccan x 24 cm without string attached. Removal of right nephrostomy tube. FINDINGS: No bladder tumors. Unable to find the bladder fistula. It seems to have healed. There are single ureteral orifices. The right retrograde pyelogram showed occlusion of the right distal ureter. I was able to get a Glidewire past the obstruction and into the kidney. CLINICAL HISTORY: This is a 44-year-old female, who presented with vaginal bleeding. She had not had a pelvic exam in a long time. She refused to allow any physicians to examine her. When she was finally examined under anesthesia, a widespread cervical cancer was noted. Metastatic workup was positive for metastasis. She has since then had a nephrostomy tube on the right side to drain her right kidney. 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 Any bladder stents that were placed inevitably got infected. She is now going to have pelvic exenteration by [facility]. They have requested a right ureteral stent to be inserted to aid in their surgery. She was given Levaquin IV credit controller to the OR. DESCRIPTION OF PROCEDURE: The patient was given induction of general anesthesia in supine position. She was then placed into lithotomy position and prepped and draped. The 21-Moroccan scope was introduced. Findings are as outlined above. A 5-Moroccan open-ended ureteral catheter was inserted into the right ureteral orifice. Diluted contrast was injected and I was surprised to see that it went in about 2 cm into the distal ureter and then it met a complete occlusion. I then tried to get past the obstruction zone with a Sensor wire and this merely deflected back 180 degrees out of the right ureteral orifice. Finally, I tried a Glidewire and this finally managed to get past the obstruction zone. This was put up into the right kidney. Over the wire, we inserted the 6-Moroccan x 24 cm right ureteral stent. Once the stent was in correct position, the wire was withdrawn entirely. The distal end of the stent was pushed into the bladder using a pusher. I did not have a string on the stent. Under fluoroscopy, the right nephrostomy tube was removed. This was to ensure that the coils of the nephrostomy tube and the ureteral stent did not intertwine with each other and lead to pulling out of the ureteral stent. A dressing was then applied over the right nephrostomy tube site. She will be leaving the hospital today to have the pelvic exenteration done at [facility] in 2 days' time. TRANSINT:[id number] Voice Confirmation ID: [id number] DOCUMENT ID: [id number] OPERATIVE REPORT [id number] JOSE VALADEZ ROBERT S MD at 1240 CC: [id number] DICTATION DATE: 09/21/19 1202 NON DESTRUCTIVE TESTING SUPERVISOR: 09/21/19 1219 REG [facility] [address] [place] [address]
== END 2019-09-21 13:20 | disposition home or self-care (01) ==
LOC: D.OPS 07:50 → D.PAN 10:30 → D.OPS 11:05
PROVIDERS: Anesthesiology; ATTEND Urology
DX: N13.30 Unspecified hydronephrosis (principal); C53.9 Malignant neoplasm of cervix uteri, unspecified; Z93.6 Other artificial openings of urinary tract status

== ENCOUNTER 2020-04-27 07:33 | Day surgery (SDC) | payer MEDICAID ==
[~2020-04-27] VITALS: Ht 160 cm; Wt 42.2 kg
[~2020-04-27 07:33] MED LIST changes: +AUGMENTIN 875-11 TAB PO; +IBUPROFEN400 MG PO
[2020-04-27 07:53] LABS: HEMATOCRIT 38.5 % (36.0-48.0); HEMOGLOBIN 12.8 g/dL (12-16); LYMPHOCYTES 12.3 % (15-50); MCH 30.9 pg (26.0-34.0); MCHC 33.2 g/dL (31.0-37.0); MEAN PLATELET VOLUME 8.5 fL (7.4-10.4); NEUTROPHILS 80.9 % (40-80); PLATELET COUNT 274 10x3/uL (130-400); RBC 4.14 10x6/uL (4.00-5.40); RDW 15.1 % (11.5-14.5); WBC 7.6 10x3/uL (4.8-10.8)
[2020-04-27 08:12] LABS: HCG SERUM NEGATIVE (NEGATIVE)
[2020-04-27 09:14] VITALS: BP 100/69; Ht 160 cm; Wt 42.2 kg
--- NOTE | 2020-04-27 13:00 | OP ---
PATIENT NAME: JOSE VALADEZ MEDICAL RECORD: [id number] :77 [facility] DATE: SURGEON: SAJAN SEALS MD DATE OF OPERATION: 04/27/2020 SURGEON: Sajan Seals MD ANESTHESIA: TIVA by Louise Castellanos CRNA DIAGNOSES: Metastatic cervical cancer with right hydronephrosis, infected old right ureteral stent. PROCEDURE: Cystoscopy, right retrograde pyelogram, right ureteral stent exchange with a 6-Chinese x 22 cm stent. FINDINGS: On retrograde pyelogram, right distal ureteral stricture with proximal hydronephrosis. BLOOD LOSS: None. CLINICAL HISTORY: This is a 45-year-old female with metastatic cervical cancer. 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 For the right ureteral stricture, she has a right ureteral stent. This stent needs to be changed. The plan is for her to go to [facility] to have a pelvic exenteration done at some point. She was given Ancef classification and treatment director to the OR today. DESCRIPTION OF PROCEDURE: The patient was given IV sedation. She was placed in lithotomy position and prepped and draped. A 22-Chinese cystoscope with 30-degree lens was used for visualization. The old stent was seen and grasping forceps were used to remove the stent entirely. We then inserted a 5-Chinese open-ended ureteral catheter and used diluted contrast to perform a retrograde pyelogram. The distal ureteral stricture is still present on the right side. Proximal to the stricture is hydroureteronephrosis. A Sensor wire was placed up the right ureter and placed up into the renal pelvis. The ureteral catheter was then removed entirely. Over the wire, we inserted the 6-Chinese x 22-cm right ureteral stent. Once the stent was in correct position, the wire was withdrawn entirely. The proximal end was seen to coil within the renal pelvis. The distal end was placed into the bladder using a pusher. The string on the distal end of the stent has been removed. She will be going to [facility] in the near future. Once she has been finished with her surgery, I will see her back in 3 months' time to either remove the stent for good or to exchange it to a new stent. TRANSINT:[id number] Voice Confirmation ID: [id number] DOCUMENT ID: [id number] SAJAN SEALS MD at 1300 CC: [id number] DICTATION DATE: 04/27/20 1130 VOIP NETWORK TECHNICIAN: 04/27/20 1227 REG [facility] [address] [place] [id number]
== END 2020-04-27 12:35 | disposition home or self-care (01) ==
LOC: D.OPS 07:33
PROVIDERS: Anesthesiology; ATTEND Urology
DX: C53.9 Malignant neoplasm of cervix uteri, unspecified (principal); T83.592A Infection and inflammatory reaction due to indwelling ureteral stent, initial encounter; N13.30 Unspecified hydronephrosis

== ENCOUNTER 2020-08-04 12:51 | Emergency (ER) | payer MEDICAID ==
[~2020-08-04] VITALS: Ht 160 cm; Wt 48.6 kg
[2020-08-04 13:16] VITALS: Ht 160 cm; Wt 48.6 kg
[2020-08-04 14:34] LABS: BASOPHILS 0.1 % (0-2); EOSINOPHILS 5.1 % (0-7); HEMATOCRIT 35.8 % (36.0-48.0); HEMOGLOBIN 11.5 g/dL (12-16); IMMATURE GRANULOCYTES 0.4 % (0-5); LYMPHOCYTES 10.1 % (15-50); MCH 29.7 pg (26.0-34.0); MCHC 32.1 g/dL (31.0-37.0); MCV 92.5 fL (80.0-100.0); MEAN PLATELET VOLUME 8.4 fL (7.4-10.4); MONOCYTES 7.4 % (2-11); NEUTROPHILS 76.9 % (40-80); RBC 3.87 10x6/uL (4.00-5.40); RDW 14.8 % (11.5-14.5); WBC 15.2 10x3/uL (4.8-10.8)
[2020-08-04 14:41] LABS: BILIRUBIN NEGATIVE (NEGATIVE); KETONE NEGATIVE (NEGATIVE); NITRITE NEGATIVE (NEGATIVE); UROBILINOGEN NORMAL mg/dL (< 2)
[2020-08-04 14:44] LABS: AMORPHOUS SEDIMENT >1+ /lpf (NONE SEEN); BACTERIA MODERATE HPF (NONE SEEN); EPITHELIAL CELLS NSEEN /hpf (0-5)
[2020-08-04 14:46] LABS: PLATELET COUNT 424 10x3/uL (130-400)
[2020-08-04 14:57] LABS: ANION GAP 12.2 mmol/L (8-16); CALCIUM 9.4 mg/dL (8.5-10.1); CARBON DIOXIDE 26.2 mmol/L (21.0-32.0); CREATININE - SERUM 0.9 mg/dL (0.6-1.3); POTASSIUM - SERUM 3.4 mmol/L (3.5-5.1)
[2020-08-04 15:03] LABS: ALBUMIN 3.3 g/dL (3.4-5.0); BILIRUBIN - TOTAL 0.36 mg/dL (0.2-1.3); PROTEIN - SERUM 8.6 g/dL (6.4-8.2)
[2020-08-04] MEDS ORDERED: LEVAQUIN750 MG PO (16:31)
[2020-08-04] MEDS ORDERED: DIFLUCAN100 MG PO (16:32)
[2020-08-04 18:49] VITALS: BP 110/74
== END 2020-08-04 18:49 | disposition home or self-care (01) ==
LOC: D.ER 12:51
PROVIDERS: Family Medicine
DX: N39.0 Urinary tract infection, site not specified (principal); R30.9 Painful micturition, unspecified; D72.829 Elevated white blood cell count, unspecified; J44.9 Chronic obstructive pulmonary disease, unspecified

== ENCOUNTER → 2020-08-28 05:26 | Day surgery (SDC) | payer MEDICAID ==
[~2020-08-28] VITALS: Ht 160 cm; Wt 48.6 kg
[~2020-08-28 05:26] MED LIST changes: +DIFLUCAN100 MG PO
[2020-08-28 05:51] LABS: BASOPHILS 0.1 % (0-2); EOSINOPHILS 11.2 % (0-7); HEMATOCRIT 37.1 % (36.0-48.0); HEMOGLOBIN 11.5 g/dL (12-16); IMMATURE GRANULOCYTES 0.3 % (0-5); LYMPHOCYTES 12.4 % (15-50); MCH 29.3 pg (26.0-34.0); MCV 94.4 fL (80.0-100.0); MEAN PLATELET VOLUME 9.2 fL (7.4-10.4); MONOCYTES 9.8 % (2-11); NEUTROPHILS 66.2 % (40-80); PLATELET COUNT 362 10x3/uL (130-400); RBC 3.93 10x6/uL (4.00-5.40); RDW 15.5 % (11.5-14.5); WBC 9.9 10x3/uL (4.8-10.8)
[2020-08-28 05:54] LABS: APTT 27.2 SECONDS (22.8-39.4); INR 0.91 (0.85-1.17); PROTIME 12.3 SECONDS (11.6-15.0)
[2020-08-28 06:01] LABS: ANION GAP 12.5 mmol/L (8-16); CALCIUM 8.8 mg/dL (8.5-10.1); CARBON DIOXIDE 26.3 mmol/L (21.0-32.0); CREATININE - SERUM 0.9 mg/dL (0.6-1.3); POTASSIUM - SERUM 3.8 mmol/L (3.5-5.1)
[2020-08-28 06:30] VITALS: BP 109/79; Ht 160 cm; Wt 48.6 kg
--- NOTE | 2020-08-28 08:07 | NUR ---
TODAY'S PROCEDURE CANCELED PER CT. PIV REMOVED AND PT DC'D.
== END | disposition home or self-care (01) ==
LOC: D.SP 05:26 → D.RAD 08:00 → D.SP 08:00
PROVIDERS: Radiology Diagnostic Radiology; ATTEND Internal Medicine Hematology & Oncology
DX: C53.8 Malignant neoplasm of overlapping sites of cervix uteri (principal); C79.11 Secondary malignant neoplasm of bladder; D63.0 Anemia in neoplastic disease; Z53.9 Procedure and treatment not carried out, unspecified reason

== ENCOUNTER 2021-03-08 12:56 | Inpatient (IN) | payer MEDICARE, MEDICAID ==
[~2021-03-08] VITALS: Ht 160 cm; Wt 53.4 kg
[~2021-03-08 12:56] MED LIST changes: +LORAZEPAM
--- NOTE | 2021-03-08 13:30 | NUR ---
ARRIVED AMBULATORY C/O BACK PAIN. STENTS IN URETERS AND HX OF UTERINE CA SEEN 2 DAYS AGO IN [facility] AND DX WITH UTI/GIVEN ABX
[2021-03-08 13:40] LABS: BASOPHILS 0.1 % (0-2); EOSINOPHILS 0.2 % (0-7); HEMATOCRIT 31.6 % (36.0-48.0); HEMOGLOBIN 10.8 g/dL (12-16); IMMATURE GRANULOCYTES 1.7 % (0-5); LYMPHOCYTE ABS# 0.82 10x3/uL (1.18-3.74); LYMPHOCYTES 5.1 % (15-50); MCH 28.3 pg (26.0-34.0); MCHC 34.2 g/dL (31.0-37.0); MCV 82.9 fL (80.0-100.0); MEAN PLATELET VOLUME 11.6 fL (7.4-10.4); MONOCYTES 5.6 % (2-11); NEUTROPHIL ABS# 13.95 10x3/uL (1.56-6.13); NEUTROPHILS 87.3 % (40-80); PLATELET COUNT 364 10x3/uL (130-400); RBC 3.81 10x6/uL (4.00-5.40); RDW 16.3 % (11.5-14.5)
[2021-03-08 13:45] VITALS: BP 94/63
[2021-03-08 13:56] LABS: APTT 42.6 SECONDS (22.8-39.4); INR 2.12 (0.85-1.17)
[2021-03-08 14:00] VITALS: BP 92/61
[2021-03-08 14:00] LABS: CALC OSMOLALITY 281 mosm/kg (275-300); CALCIUM 8.1 mg/dL (8.5-10.1); CARBON DIOXIDE 23.5 mmol/L (21.0-32.0); CHLORIDE - SERUM 103 mmol/L (98-107); CREATININE - SERUM 1.1 mg/dL (0.6-1.3); POTASSIUM - SERUM 3.5 mmol/L (3.5-5.1); SODIUM 138 mmol/L (136-145); UREA NITROGEN 14 mg/dL (7-18); eGFR NON AFRICAN AMERICAN 57 mL/min (90-120)
[2021-03-08 14:02] LABS: GLUCOSE 191 mg/dL (74-106)
[2021-03-08 14:10] LABS: ALBUMIN 1.9 g/dL (3.4-5.0); ALKALINE PHOSPHATASE 320 U/L (30-120); ALT (SGPT) 2095 U/L (10-68); AMYLASE - SERUM 18 U/L (25-115); LIPASE 187 U/L (73-393); PROTEIN - SERUM 6.2 g/dL (6.4-8.2); TROPONIN-I < 0.017 ng/mL (0.000-0.060)
[2021-03-08 14:42] LABS: BILIRUBIN NEGATIVE (NEGATIVE); KETONE NEGATIVE (NEGATIVE); NITRITE POSITIVE (NEGATIVE); UROBILINOGEN NORMAL mg/dL (< 2)
[2021-03-08 14:49] LABS: WHITE CELLS - URINE >50 HPF (0-4)
[2021-03-08 14:50] LABS: BACTERIA MODERATE HPF (NONE SEEN); SQUAMOUS EPITHELIAL 0-5 HPF (0-4)
--- NOTE | 2021-03-08 17:22 | NUR ---
REPORT GIVEN TO NINA BETHEA PT IS GOING TO ROOM 9501
[2021-03-08 17:43] VITALS: BP 92/56; BMI 18.9
[2021-03-08] MEDS ORDERED: KLOR-CON M2020 MEQ PO (17:57)
[2021-03-08] MEDS ORDERED: CEPHALEXIN500 M1 PO (17:58)
[2021-03-08] MEDS ORDERED: FLOMAX0.4 MG PO (17:59)
--- NOTE | 2021-03-08 18:10 | NUR ---
ALERT AND ORIENTED X4. SKIN JAUNDICED WITH ABDOMINAL TENDERNESS NOTED TO RUQ ANTERIOR WITH BS HYPERACTIVE X4. MORPHINE GIVEN IN EMERGENCY ROOM PRIOR TO ADMISSION. IVF INFUSING AT PRESCRIBED RATE VIA LEFT HAND WITH NO S/S OF INFECTION/INFILTRATION NOTED. ENCOURAGED TO USE CALL LIGHT FOR ASSIST WITH PRESENT.
[2021-03-08 20:23] VITALS: BP 101/68
--- NOTE | 2021-03-09 02:38 | NUR ---
PT HAS BEEN RESTING IN BED. COMPLAINED OF PAIN AND PAIN MEDICATION WAS GIVEN ALONG WITH NAUSEA MEDS AND WAS EFFECTIVE. ABLE TO MAKE WANTS AND NEEDS KNOWN CLEARLY. NPO SINCE MIDNIGHT. BED IN LOWEST POSITION AND CALL LIGHT IN REACH.
[2021-03-09 05:46] LABS: BASOPHILS 0.3 % (0-2); EOSINOPHILS 2.4 % (0-7); HEMATOCRIT 27.2 % (36.0-48.0); HEMOGLOBIN 9.2 g/dL (12-16); IMMATURE GRANULOCYTES 2.4 % (0-5); LYMPHOCYTE ABS# 0.89 10x3/uL (1.18-3.74); LYMPHOCYTES 10.3 % (15-50); MCH 27.3 pg (26.0-34.0); MCHC 33.8 g/dL (31.0-37.0); MEAN PLATELET VOLUME 10.9 fL (7.4-10.4); NEUTROPHIL ABS# 6.07 10x3/uL (1.56-6.13); NEUTROPHILS 70.6 % (40-80); PLATELET COUNT 306 10x3/uL (130-400); RBC 3.37 10x6/uL (4.00-5.40); RDW 16.5 % (11.5-14.5)
[2021-03-09 05:49] LABS: MCV 80.7 fL (80.0-100.0); WBC 8.6 10x3/uL (4.8-10.8)
[2021-03-09 06:03] LABS: ALBUMIN 1.6 g/dL (3.4-5.0); ANION GAP 11.7 mmol/L (8-16); BILIRUBIN - TOTAL 7.14 mg/dL (0.2-1.3); CALCIUM 7.8 mg/dL (8.5-10.1); CARBON DIOXIDE 23.4 mmol/L (21.0-32.0); POTASSIUM - SERUM 3.1 mmol/L (3.5-5.1); PROTEIN - SERUM 5.7 g/dL (6.4-8.2)
[2021-03-09 07:21] LABS: HCG SERUM NEGATIVE (NEGATIVE)
--- NOTE | 2021-03-09 10:41 | NUR ---
OK TO TRANSFER TO FLOOR PER ANESTHESIA.
[2021-03-09 10:51] VITALS: BP 90/58
[2021-03-09 11:00] VITALS: BP 120/72
[2021-03-09 15:00] VITALS: BP 128/80
[2021-03-09 20:00] VITALS: BP 91/61
--- NOTE | 2021-03-09 23:42 | NUR ---
PT RESTING IN BED WITH AT BEDSIDE.COMPLAINING OF PAIN IN THE ABD. STATES THE TYLENOL IS MAKING HER NAUSEOUS. ABLE TO MAKE WANTS AND NEEDS KNOWN CLEAR. BED IN LOW POSITION WITH CALL ALVA LIGHT IN REACH.
[2021-03-10] VITALS (7 sets, daily range): BP systolic 88–99; BP diastolic 50–60
[2021-03-10 05:08] LABS: BASOPHILS 0.1 % (0-2); EOSINOPHILS 0 % (0-7); HEMATOCRIT 23.6 % (36.0-48.0); HEMOGLOBIN 7.8 g/dL (12-16); IMMATURE GRANULOCYTES 1.8 % (0-5); LYMPHOCYTE ABS# 0.92 10x3/uL (1.18-3.74); LYMPHOCYTES 13.7 % (15-50); MCHC 33.1 g/dL (31.0-37.0); MCV 81.7 fL (80.0-100.0); MONOCYTES 8.5 % (2-11); NEUTROPHILS 75.9 % (40-80); PLATELET COUNT 304 10x3/uL (130-400); RBC 2.89 10x6/uL (4.00-5.40); WBC 6.7 10x3/uL (4.8-10.8)
[2021-03-10 05:58] LABS: ALBUMIN 1.2 g/dL (3.4-5.0); BILIRUBIN - TOTAL 4.18 mg/dL (0.2-1.3); CALCIUM 7.3 mg/dL (8.5-10.1); CARBON DIOXIDE 20.2 mmol/L (21.0-32.0); CREATININE - SERUM 1.1 mg/dL (0.6-1.3); PROTEIN - SERUM 4.8 g/dL (6.4-8.2)
[2021-03-10 06:09] LABS: ANION GAP 11.4 mmol/L (8-16)
[2021-03-10 06:10] LABS: POTASSIUM - SERUM 4.6 mmol/L (3.5-5.1)
[2021-03-10 08:12] LABS: HEPATITIS C ANTIBODY >11.0 S/CO RAT (0.0-0.9)
--- NOTE | 2021-03-10 19:09 | NUR ---
PATIENT RESTING IN BED WITH NO S/S OF DISTRESS. AT BEDSIDE. PATIENT DENIES NEEDS AT THIS TIME. BED IN LOWEST POSITION AND CALL LIGHT IN REACH. ENCOURAGED PATIENT TO CALL WITH NEEDS.
--- NOTE | 2021-03-10 20:32 | NUR ---
NOTIFIED BY THE CUSTOM HARVESTER THAT PATIENT'S STATED THE PATIENT "FELL". WHEN I ENTERED THE ROOM THE PATIENT WAS LYING ON THE FLOOR ON HER RIGHT SIDE HORIZONTAL TO THE BED. PATIENT APPEARED CLOSE TO PASSING OUT AT THIS TIME. CALLED PATIENT'S NAME SEVERAL TIMES AND THE PATIENT RESPONDED. MAKENNA RN, KAITLYN RN, AND I ASSISTED THE PATIENT TO A SITTING POSITION AND THEN ONTO HER BED. I ASKED PATIENT IF SHE WAS IN ANY PAIN, PATIENT STATED "NO". I ASKED PATIENT IF SHE HIT HER HEAD AND PATIENT STATED, "I DON'T KNOW". PATIENT'S STATED THAT HE HEARD "SOMETHING HIT", HOWEVER, WAS UNSURE IF THE PATIENT HIT HER HEAD. PATIENT STATED "I AM VERY HOT AND NEED WATER". PATIENT STATED SHE WAS GETTING UP TO GO TO THE BATHROOM AND "FELL". VITALS: BP 85/52, PULSE 134, RESP 22, TEMP 96.8, O2 97% ON ROOM AIR. WILL NOTIFY SALES REPRESENTATIVE PRINTING SUPPLIES FOR FURTHER ORDERS.
--- NOTE | 2021-03-10 20:48 | NUR ---
NOTIFIED MARJORIE LIN OF FINDING PATIENT ON FLOOR. ALSO NOTIFIED RILEY THAT THE PATIENT AND WERE UNSURE IF THE PATIENT HIT HER HEAD. RILEY ORDERED A HEAD CT AND CBC ALONG WITH A MANUAL BP.
--- NOTE | 2021-03-10 21:06 | NUR ---
PATIENT TAKEN FOR HEAD CT
--- NOTE | 2021-03-10 21:38 | NUR ---
ADMINISTERED MEDS PER ORDERS. PATIENT ELIJAH WELL. ENCOURAGED TO CALL WITH NEEDS.
--- NOTE | 2021-03-10 22:35 | NUR ---
PATIENT BACK FROM CT. NOTIFIED LAB THAT THE PATIENT IS BACK TO HER ROOM.
[2021-03-10 23:07] LABS: BASOPHILS 0.4 % (0-2); EOSINOPHILS 0 % (0-7); IMMATURE GRANULOCYTES 1.1 % (0-5); LYMPHOCYTES 16.4 % (15-50); MCH 26.7 pg (26.0-34.0); MCHC 31.4 g/dL (31.0-37.0); MEAN PLATELET VOLUME 10.6 fL (7.4-10.4); MONOCYTES 10.2 % (2-11); NEUTROPHIL ABS# 6.57 10x3/uL (1.56-6.13); NEUTROPHILS 71.9 % (40-80); RDW 17.4 % (11.5-14.5); WBC 9.1 10x3/uL (4.8-10.8)
[2021-03-10 23:08] LABS: HEMOGLOBIN 4.4 g/dL (12-16); MCV 84.8 fL (80.0-100.0); PLATELET COUNT 214 10x3/uL (130-400); RBC 1.65 10x6/uL (4.00-5.40)
[2021-03-11] VITALS (10 sets, daily range): BP systolic 88–112; BP diastolic 46–69
--- NOTE | 2021-03-11 00:30 | NUR ---
BEGAN TRANSFUSING FIRST UNIT PRBC'S
--- NOTE | 2021-03-11 03:35 | NUR ---
BEGAN TRANSFUSING 2ND UNIT PRBC'S
[2021-03-11 06:20] LABS: LYMPHOCYTE ABS# 2.59 10x3/uL (1.18-3.74); MCH 27.8 pg (26.0-34.0); MCHC 32.7 g/dL (31.0-37.0); MCV 85.1 fL (80.0-100.0); MEAN PLATELET VOLUME 10.8 fL (7.4-10.4); NEUTROPHIL ABS# 8.35 10x3/uL (1.56-6.13); PLATELET COUNT 245 10x3/uL (130-400); RDW 14.2 % (11.5-14.5)
[2021-03-11 06:21] LABS: RBC 2.55 10x6/uL (4.00-5.40); WBC 12.5 10x3/uL (4.8-10.8)
[2021-03-11 06:23] LABS: HEMATOCRIT 21.7 % (36.0-48.0); HEMOGLOBIN 7.1 g/dL (12-16)
--- NOTE | 2021-03-11 06:30 | NUR ---
BEGAN TRANSFUSING 3RD UNIT PACKED RBC'S
[2021-03-11 06:55] LABS: LYMPHOCYTES 14 % (15-50); NEUTROPHILS 80 % (40-80); PLATELET ESTIMATE NORMAL
[2021-03-11 07:01] LABS: BURR CELLS OCC; TARGET CELLS OCC
[2021-03-11 07:16] LABS: BILIRUBIN - TOTAL 3.3 mg/dL (0.2-1.3); CALCIUM 7.3 mg/dL (8.5-10.1); CARBON DIOXIDE 17.5 mmol/L (21.0-32.0); PROTEIN - SERUM 3.6 g/dL (6.4-8.2)
[2021-03-11 07:21] LABS: ANION GAP 14.9 mmol/L (8-16); CREATININE - SERUM 1.4 mg/dL (0.6-1.3); POTASSIUM - SERUM 5.4 mmol/L (3.5-5.1)
--- NOTE | 2021-03-11 09:12 | NUR ---
FINISHD 3RD UNIT PRBC'S WITH LARGE AMOUNT DARK BLOODY STOOL NOTED IN ATTENDS. QUAIC STOOL OBTAINED PER DRBan LATHEM ORDER
[2021-03-11 09:51] LABS: UDS - AMPHET NEGATIVE QUAL (NEGATIVE); UDS - BARB NEGATIVE QUAL (NEGATIVE); UDS - BENZO POSITIVE QUAL (NEGATIVE); UDS - COCAINE NEGATIVE QUAL (NEGATIVE); UDS - OPIATE POSITIVE QUAL (NEGATIVE); UDS - PCP NEGATIVE QUAL (NEGATIVE); UDS - THC NEGATIVE QUAL (NEGATIVE)
--- NOTE | 2021-03-11 10:09 | NUR ---
PATIENT HAD ANOTHER LARGE DARK OCCULT STOOL WITH DR. MORSE NOTIFIED WITH ORDER FOR BLEEDING SCAN NOTED.
[2021-03-11 10:23] LABS: HEMATOCRIT 33.1 % (36.0-48.0); HEMOGLOBIN 11.3 g/dL (12-16)
--- NOTE | 2021-03-11 13:53 | NUR ---
PATIENT GONE FOR PROCEDURE.
--- NOTE | 2021-03-11 19:00 | NUR ---
BEDSIDE REPORT RECEIVED AND CARE OF PT ASSUMED. PT LYING IN SUPINE POSITION WITH EYES CLOSED AND EASY RESPIRAITONS. SPOUSE IS AT BEDSIDE. IV TO RIGHT SHOULDER PATENT WITH NS INFUSING AT 100 ML/HR. TELEMETRY IN PLACE PER ORDER AND READING SR AT THIS ASSESSMENT.
--- NOTE | 2021-03-11 20:36 | NUR ---
HS MEDICATIONS GIVEN. WILL CONTINUE TO MONITOR FOR NEEDS.
[2021-03-12] VITALS (8 sets, daily range): BP systolic 88–111; BP diastolic 50–70; Ht 160 cm; Wt 53.4 kg
[2021-03-12 06:05] LABS: BASOPHILS 0.5 % (0-2); IMMATURE GRANULOCYTES 5.9 % (0-5); LYMPHOCYTE ABS# 2.09 10x3/uL (1.18-3.74); LYMPHOCYTES 18.1 % (15-50); MCH 28.6 pg (26.0-34.0); MCHC 34.3 g/dL (31.0-37.0); MCV 83.3 fL (80.0-100.0); MEAN PLATELET VOLUME 10.8 fL (7.4-10.4); MONOCYTES 15.4 % (2-11); NEUTROPHIL ABS# 6.83 10x3/uL (1.56-6.13); NEUTROPHILS 59.1 % (40-80); RBC 2.52 10x6/uL (4.00-5.40); RDW 15.4 % (11.5-14.5); WBC 11.6 10x3/uL (4.8-10.8)
[2021-03-12 06:10] LABS: HEMOGLOBIN 7.2 g/dL (12-16); PLATELET COUNT 170 10x3/uL (130-400)
[2021-03-12 06:30] LABS: BILIRUBIN - TOTAL 3.62 mg/dL (0.2-1.3); CARBON DIOXIDE 20.5 mmol/L (21.0-32.0); CREATININE - SERUM 1.1 mg/dL (0.6-1.3); PROTEIN - SERUM 3.6 g/dL (6.4-8.2)
--- NOTE | 2021-03-12 06:52 | NUR ---
CALLED CRITICAL HGB OF 7.2 TO RNP. MITCHELL RECEIVED ORDER TO INFUSE 1 UNIT OF PRBC'S.
[2021-03-12 07:12] LABS: ANION GAP 10.9 mmol/L (8-16); POTASSIUM - SERUM 3.4 mmol/L (3.5-5.1)
[2021-03-12 07:13] LABS: CALCIUM 6.8 mg/dL (8.5-10.1)
[2021-03-12 13:05] LABS: INR 1.41 (0.85-1.17)
[2021-03-12 13:12] LABS: HEMATOCRIT 25.3 % (36.0-48.0); HEMOGLOBIN 8.5 g/dL (12-16)
--- NOTE | 2021-03-12 14:53 | NUR ---
PATIENT WAS SLEEPING PATIENT FAMILY ASK TO COME BACK LATER
--- NOTE | 2021-03-12 18:28 | NUR ---
PATIENT HAD SMALL FORMED STOOL WITH SMALL AMOUNT OF BRIGHT RED BLOOD NOTED. DENIES ANY PAIN OR DISCOMFORT AT THIS TIME.
--- NOTE | 2021-03-12 19:00 | NUR ---
BEDSIDE REPORT RECEIVED AND CARE OF PT ASSUMED. ONLY ONE SMALL BLOOD TINGED STOOL REPORTED ON DAY SHIFT. IV TO RIGHT UPPER ARM PATENT WITH MVI INFUSING AT 125 ML/HR. TELEMETRY READING SR AT THIS TIME.
--- NOTE | 2021-03-12 20:28 | NUR ---
HS MEDICATIONS GIVEN. WILL CONTINUE TO MONITOR FOR NEEDS.
--- NOTE | 2021-03-12 21:10 | NUR ---
PT HAD LARGE BLOODY STOOL IN TOILET.
--- NOTE | 2021-03-12 21:15 | NUR ---
PT WENT BACK TO BED AND HAD A LARGE INCONTINENT BLOODY STOOL....WILL CALL DOCTORS TO REPORT CHANGE IN CONDITION.
--- NOTE | 2021-03-12 21:20 | NUR ---
CALLED DR ANDERS TO REPORT PT HAVING LARGE BLODDY STOOLS. RECEIVED ORDER TO PERFORM CBC AND CALL PRIMARY IF HGB <7
--- NOTE | 2021-03-12 21:37 | NUR ---
CALLED LILIBETH VIEIRA APN TO REPORT INCREASE OF BLOODY STOOLS. RECEIVED ORDER TO TRANSFER TO ICU
--- NOTE | 2021-03-12 21:44 | NUR ---
CALLED REPORT TO ICU...PT TRANSFERRING TO 2379
[2021-03-12 22:07] LABS: HEMATOCRIT 25.7 % (36.0-48.0); HEMOGLOBIN 8.7 g/dL (12-16); LYMPHOCYTE ABS# 1.58 10x3/uL (1.18-3.74); MCH 27.6 pg (26.0-34.0); MCHC 33.9 g/dL (31.0-37.0); MCV 81.6 fL (80.0-100.0); NEUTROPHIL ABS# 4.83 10x3/uL (1.56-6.13); PLATELET COUNT 168 10x3/uL (130-400); WBC 8.7 10x3/uL (4.8-10.8)
[2021-03-12 22:16] LABS: INR 1.3 (0.85-1.17)
[2021-03-12 22:19] LABS: RBC 3.15 10x6/uL (4.00-5.40)
[2021-03-12 22:52] LABS: LYMPHOCYTES 10 % (15-50); MONOCYTES 2 % (2-11); NEUTROPHILS 87 % (40-80); PLATELET ESTIMATE NORMAL
[2021-03-13] VITALS (14 sets, daily range): BP systolic 95–117; BP diastolic 59–79
[2021-03-13 03:05] LABS: BASOPHILS 0.2 % (0-2); HEMATOCRIT 22.9 % (36.0-48.0); HEMOGLOBIN 7.9 g/dL (12-16); IMMATURE GRANULOCYTES 5.9 % (0-5); LYMPHOCYTE ABS# 1.84 10x3/uL (1.18-3.74); LYMPHOCYTES 20.6 % (15-50); MCH 27.9 pg (26.0-34.0); MCHC 34.5 g/dL (31.0-37.0); MCV 80.9 fL (80.0-100.0); MEAN PLATELET VOLUME 10.3 fL (7.4-10.4); MONOCYTES 11.7 % (2-11); NEUTROPHIL ABS# 5.31 10x3/uL (1.56-6.13); NEUTROPHILS 59.6 % (40-80); PLATELET COUNT 162 10x3/uL (130-400); RBC 2.83 10x6/uL (4.00-5.40); WBC 8.9 10x3/uL (4.8-10.8)
--- NOTE | 2021-03-13 03:11 | NUR ---
SNEHA VIEIRA WITH H&H LEVELS, WILL CONTINUE TO MONITOR AT THIS TIME
[2021-03-13 03:25] LABS: ANION GAP 9.5 mmol/L (8-16); BILIRUBIN - TOTAL 4.15 mg/dL (0.2-1.3); CARBON DIOXIDE 22.8 mmol/L (21.0-32.0); CREATININE - SERUM 0.9 mg/dL (0.6-1.3); POTASSIUM - SERUM 3.3 mmol/L (3.5-5.1)
[2021-03-13 03:32] LABS: ALBUMIN 1.3 g/dL (3.4-5.0)
[2021-03-13 03:33] LABS: CALCIUM 6.7 mg/dL (8.5-10.1)
--- NOTE | 2021-03-13 03:39 | NUR ---
I have reviewed this patient and I concur with the Shift Assessment completed by the Licensed Practical Nurse today this shift.
--- NOTE | 2021-03-13 07:40 | NUR ---
DR ANDERS AT BEDSIDE FOR EGD, PT TOLERATED WELL, NO NEEDS VOICED AT THIS TIME, CALL LIGHT IN REACH, WILL MONITOR
[2021-03-13 10:40] LABS: HEMATOCRIT 25.2 % (36.0-48.0); HEMOGLOBIN 8.3 g/dL (12-16)
--- NOTE | 2021-03-13 10:50 | NUR ---
moderate dark red bm noted, dung care given and linens changed, no needs voiced at this time, will monitor
--- NOTE | 2021-03-13 12:30 | NUR ---
pt sleeping, no distress noted, call light in reach, will monitor
--- NOTE | 2021-03-13 13:44 | NUR ---
DC TO ICU WILL NEED NEW ORDERS TO WORK WITH PATIENT WHEN ABLE
--- NOTE | 2021-03-13 16:30 | NUR ---
report called to jb coampo on med surg
--- NOTE | 2021-03-13 16:45 | NUR ---
pt transferred to 2228 via wheelchair, belongings sent with patient, present, bedside report given and call light in reach
[2021-03-13 16:54] LABS: HEMATOCRIT 22.1 % (36.0-48.0); HEMOGLOBIN 7.5 g/dL (12-16)
[2021-03-14 02:56] LABS: HEMATOCRIT 23.5 % (36.0-48.0); HEMOGLOBIN 7.9 g/dL (12-16)
[2021-03-14 04:00] VITALS: BP 110/72
--- NOTE | 2021-03-14 04:30 | NUR ---
PATIENT DENIES PAIN, SHE HAS AT BEDSIDE, SHE APPEARS TO HAVE RESTED WELL THROUGH THE NIGHT. SHE IS CURRENTLY RESTIN IN BED WITH HER EYES CLOSED.
--- NOTE | 2021-03-14 07:30 | NUR ---
RECIEVED BEDSIDE REPORT. AROUSES TO VOICE. DENIES NEEDS AT THIS TIME, BED LOW POSITION, CALL LIGHT IN REACH. WILL CONTINUE TO MONITOR.
[2021-03-14 09:23] VITALS: BP 105/65
[2021-03-14 10:40] LABS: HEMATOCRIT 22.7 % (36.0-48.0)
[2021-03-14 10:44] LABS: HEMOGLOBIN 7.5 g/dL (12-16)
[2021-03-14 10:49] LABS: BASOPHILS 0.4 % (0-2); EOSINOPHILS 1.8 % (0-7); HEMATOCRIT 24.9 % (36.0-48.0); HEMOGLOBIN 8.1 g/dL (12-16); IMMATURE GRANULOCYTES 5.6 % (0-5); LYMPHOCYTE ABS# 3.63 10x3/uL (1.18-3.74); LYMPHOCYTES 34.8 % (15-50); MCH 27.9 pg (26.0-34.0); MCHC 32.5 g/dL (31.0-37.0); MEAN PLATELET VOLUME 10.8 fL (7.4-10.4); MONOCYTES 9.7 % (2-11); NEUTROPHIL ABS# 4.97 10x3/uL (1.56-6.13); NEUTROPHILS 47.7 % (40-80); RDW 18.7 % (11.5-14.5); WBC 10.4 10x3/uL (4.8-10.8)
[2021-03-14 11:00] VITALS: BP 118/73
[2021-03-14 11:01] LABS: CALC OSMOLALITY 274 mosm/kg (275-300); CARBON DIOXIDE 20.9 mmol/L (21.0-32.0); CHLORIDE - SERUM 109 mmol/L (98-107); CREATININE - SERUM 0.8 mg/dL (0.6-1.3); GLUCOSE 101 mg/dL (74-106); POTASSIUM - SERUM 3.9 mmol/L (3.5-5.1); SODIUM 138 mmol/L (136-145); UREA NITROGEN 9 mg/dL (7-18); eGFR NON AFRICAN AMERICAN 82 mL/min (90-120)
[2021-03-14 11:07] LABS: MCV 85.9 fL (80.0-100.0); PLATELET COUNT 246 10x3/uL (130-400)
[2021-03-14 11:08] LABS: ALBUMIN 1.5 g/dL (3.4-5.0); ALKALINE PHOSPHATASE 181 U/L (30-120); ALT (SGPT) 216 U/L (10-68); BILIRUBIN - TOTAL 4.27 mg/dL (0.2-1.3); PROTEIN - SERUM 4.5 g/dL (6.4-8.2)
[2021-03-14 12:15] VITALS: BP 106/67
--- NOTE | 2021-03-14 15:21 | NUR ---
STARTED FIRST UNIT PRBC'S. VITAL SIGNS STABLE. 15 MINUTES OF MONITORING COMPLETED. WILL CONTINUE TO MONITOR.
[2021-03-14 20:00] VITALS: BP 128/63
--- NOTE | 2021-03-15 02:58 | NUR ---
PATIENT RECIEVED 2 UNITS PRBC'S, SHE TOLERATED IT WELL, SHE IS CURRENTLY RESTING IN BED, AT BEDSIDE, SHE IS CURRENTRESTING IN BED WITH HER EYES CLOSED.
[2021-03-15 04:00] VITALS: BP 103/73
[2021-03-15 06:24] LABS: BASOPHILS 0.2 % (0-2); EOSINOPHILS 1.7 % (0-7); IMMATURE GRANULOCYTES 2.1 % (0-5); LYMPHOCYTE ABS# 1.16 10x3/uL (1.18-3.74); LYMPHOCYTES 20.2 % (15-50); MCHC 32.8 g/dL (31.0-37.0); MEAN PLATELET VOLUME 11.2 fL (7.4-10.4); MONOCYTES 10.1 % (2-11); NEUTROPHIL ABS# 3.76 10x3/uL (1.56-6.13); NEUTROPHILS 65.7 % (40-80); RDW 17.9 % (11.5-14.5)
[2021-03-15 06:33] LABS: HEMATOCRIT 33.5 % (36.0-48.0); MCV 88.4 fL (80.0-100.0); PLATELET COUNT 177 10x3/uL (130-400); RBC 3.79 10x6/uL (4.00-5.40); WBC 5.7 10x3/uL (4.8-10.8)
[2021-03-15 06:50] LABS: ALBUMIN 1.3 g/dL (3.4-5.0); ALKALINE PHOSPHATASE 183 U/L (30-120); ALT (SGPT) 166 U/L (10-68); BILIRUBIN - TOTAL 3.86 mg/dL (0.2-1.3); CALC OSMOLALITY 273 mosm/kg (275-300); CARBON DIOXIDE 16.1 mmol/L (21.0-32.0); CHLORIDE - SERUM 110 mmol/L (98-107); CREATININE - SERUM 0.7 mg/dL (0.6-1.3); GLUCOSE 79 mg/dL (74-106); PROTEIN - SERUM 4.2 g/dL (6.4-8.2); SODIUM 138 mmol/L (136-145); UREA NITROGEN 9 mg/dL (7-18); eGFR NON AFRICAN AMERICAN > 90 mL/min (90-120)
[2021-03-15 07:00] LABS: CALCIUM 6.9 mg/dL (8.5-10.1)
--- NOTE | 2021-03-15 07:47 | NUR ---
RECIEVED BEDSIDE REPORT. IN BED, AROUSES TO VOICE. DENIES NEEDS AT THIS TIME. BED LOW POSITION, CALL LIGHT IN REACH. WILL CONTINUE TO MONITOR.
--- NOTE | 2021-03-15 08:43 | NUR ---
WENT TO GIVE PATIENT MORNING MEDICATIONS AND WHEN TOLD THAT ANOTHER DOSE OF ANTIBIOTIC WAS DUE, PATIENT WAS VERBALLY UPSET AND SAID SHE REFUSED THE MEDICATION. WHEN ASKED WHY SHE SAID SHE WAS TIRED OF BEING IN THE HOSPITAL.
[2021-03-15 09:18] VITALS: BP 118/73
--- NOTE | 2021-03-15 11:56 | NUR ---
PATIENT SPOKE TO DR. ELMORE, SIGNED AMA PAPERS. BOTH IV'S OUT, CATH TIPS INTACT. BELONGINGS GATHERED. JON SAUCEDA VIA WHEELCHAIR TO HOME.
== END 2021-03-15 12:03 | disposition left against medical advice (07) | DRG 853 ==
LOC: D.ER 12:56 → D.MS 16:18 → D.ICU 03-12 21:55 → D.MS 03-13 16:45
PROVIDERS: Anesthesiology; Emergency Medicine; Family Medicine; Surgery; ADMIT Family Medicine; ATTEND Family Medicine
PROC: BF502Z0 Other Imaging of Bile Ducts using Fluorescing Agent, Intraoperative (ICD-10-PCS; 2021-03-09)
PROC: 0FT44ZZ Resection of Gallbladder, Percutaneous Endoscopic Approach (ICD-10-PCS; principal; 2021-03-09 07:30)
PROC: 0DJ08ZZ Inspection of Upper Intestinal Tract, Via Natural or Artificial Opening Endoscopic (ICD-10-PCS; 2021-03-13)
PROC: 3E0H8GC Introduction of Other Therapeutic Substance into Lower GI, Via Natural or Artificial Opening Endoscopic (ICD-10-PCS; 2021-03-14)
DX: A41.9 Sepsis, unspecified organism (principal); E43 Unspecified severe protein-calorie malnutrition; K25.4 Chronic or unspecified gastric ulcer with hemorrhage; K81.0 Acute cholecystitis; N39.0 Urinary tract infection, site not specified; Z68.1 Body mass index [BMI] 19.9 or less, adult; E72.20 Disorder of urea cycle metabolism, unspecified; D62 Acute posthemorrhagic anemia; B15.9 Hepatitis A without hepatic coma; N17.9 Acute kidney failure, unspecified; J44.9 Chronic obstructive pulmonary disease, unspecified; E80.6 Other disorders of bilirubin metabolism; Z85.42 Personal history of malignant neoplasm of other parts of uterus; Z85.41 Personal history of malignant neoplasm of cervix uteri